=== PATIENT | female | born 1970 | race Caucasian/White ===

== ENCOUNTER → 2016-08-27 | Outpatient (CLI) | payer BC ==
[~2016-08-27] MED LIST: BCPILLS PO; CHOL1000 PO; CIPR-255 PO; KETO10TA PO; LEVO88TA PO; MULT1CAP3 PO; ONDA4TAB46 PO; OXYC-57 PO; PHEN-775 PO; PHEN-876 PO; SULF800T23 PO; TAMS0.4C38 PO
[2016-08-27 17:48] LABS: HEMATOCRIT 39.6 % (37-47); MEAN CELL VOLUME 88.4 fL (80-100); MEAN CORPUSCULAR HEMOGLOBIN 31.3 pg (25-34); MEAN CORPUSCULAR HGB CONC 35.4 g/dl (32-36); MEAN PLATELET VOLUME 9.5 fL (7.4-10.4); PLATELET COUNT 260 K/uL (130-400); RED BLOOD COUNT 4.48 M/uL (4.2-5.4); WHITE BLOOD COUNT 6.78 K/uL (4.8-10.8)
[2016-08-27 18:35] LABS: ALT/SGPT 29 U/L (12-78); AST/SGOT 20 U/L (15-37); BLOOD UREA NITROGEN 10 mg/dl (7-18); BUN/CREATININE RATIO 12.4 (10-20); CALCIUM 8.8 mg/dl (8.5-10.1); CARBON DIOXIDE 25 mmol/L (21-32); CHLORIDE 108 mmol/L (98-107); CREATININE 0.82 mg/dl (0.60-1.20); GLUCOSE 88 mg/dl (70-99); POTASSIUM 3.9 mmol/L (3.5-5.1); SODIUM 141 mmol/L (136-145)
[2016-08-27 18:45] LABS: ALB/GLOB RATIO 0.9 (0.9-2); ALKALINE PHOSPHATASE 56 U/L (45-117)
--- NOTE | 2016-09-02 07:12 | CODING QUERY MEDICAL NECESSITY ---
SUPPORTING DIAGNOSIS NEEDED Dr. Mckeon, A supporting diagnosis is required for the test/procedure performed on this patient in order for us to be reimbursed by the patient's insurance. Please provide a supporting diagnosis for the following test/procedure listed below next to the test name along with your signature. *If there is no additional diagnosis for this patient that would support the following test/procedure please document that below next to the test/procedure. Test(s)/Procedure(s) that require a supporting diagnosis: * ([id number]) VITAMIN D ASSAY DIAGNOSIS: DATE OF SERVICE: 08/27/16 Provider Signature: Date: Thank you Otilio Blair [facility] Information Management Once completed, please kindly fax back to [phone] For questions please call [phone]
== END | disposition home or self-care (01) ==
LOC: C.LABPVFM 14:09
PROVIDERS: ATTEND Family Medicine
DX: Z01.818 Encounter for other preprocedural examination (principal); E03.9 Hypothyroidism, unspecified; R53.83 Other fatigue; E55.9 Vitamin D deficiency, unspecified

== ENCOUNTER → 2016-12-06 | Outpatient (CLI) | payer BC | END | disposition home or self-care (01) | LOC: C.LABPVFM 11:58 | PROVIDERS: ATTEND Family Medicine | DX: R10.9 Unspecified abdominal pain (principal) ==

== ENCOUNTER → 2016-12-08 | Outpatient (CLI) | payer BC ==
[2016-12-08 19:01] LABS: URINE APPEARANCE TURBID (CLEAR); URINE BILIRUBIN NEG (NEG); URINE COLOR YELLOW; URINE NITRITE NEG (NEG); URINE SPECIFIC GRAVITY 1.029 (1.000-1.030); UROBILINOGEN NEG (NEG)
[2016-12-08 19:05] LABS: MANUAL MICROSCOPIC REQUIRED? NO; REVIEW REQ? NO
== END | disposition home or self-care (01) ==
LOC: C.LABSPEC 16:02
PROVIDERS: ATTEND Physician Assistant
DX: R10.2 Pelvic and perineal pain (principal)

== ENCOUNTER 2016-12-16 12:42 | Emergency (ER) | payer BC ==
[~2016-12-16] VITALS: Ht 165.1 cm; Wt 88.9 kg
[2016-12-16 12:55] VITALS: TEMP 36.7; Ht 165.1 cm; Wt 88.9 kg
[2016-12-16] MEDS ORDERED: SULF800T23 PO (13:16)
[2016-12-16] MEDS ORDERED: SODIUM CHLORIDE 0.9% 1000ML 500 ML IV ONE (13:19)
[2016-12-16 13:34] LABS: MANUAL MICROSCOPIC REQUIRED? NO; REVIEW REQ? NO; URINE APPEARANCE CLEAR (CLEAR); URINE BILIRUBIN NEG (NEG); URINE COLOR DK YELLOW; URINE EPITHELIAL CELL AUTO 20-30 /lpf (0-5); URINE NITRITE NEG (NEG); URINE PH 5.5 (4.5-7.5); URINE SPECIFIC GRAVITY 1.028 (1.000-1.030); UROBILINOGEN NEG (NEG); ZZUR CULT IF INDIC CLEAN CATCH NO
--- NOTE | 2016-12-16 13:54 | EMERGENCY ROOM VISIT NOTE ---
History First contact with patient: 13:30 Chief Complaint: URINARY SYMPTOMS Stated Complaint: BACK PAIN, BLADDER PRESSURE, PREVIOUS UTI SYMPTOMS Nursing Triage Summary: Pt reports urinary symptoms began 2 weeks ago, seen by PCP and put on antibiotic. Stopped after 4 days because urine was negative. Pt seen by gynecology with specific answers. Pt reports R back pain began this AM rated 9/10. No hx of kidney stones. History of Present Illness The patient is a 46 year old female who presents to the Emergency Room with complaints of suprapubic discomfort, urinary frequency, gross hematuria and right flank pain that has gotten progressively worse over the last 2 weeks. The patient initially saw her primary care physician 2 weeks ago. A urinalysis was performed. It showed blood. She was started on antibiotics for 4 days for a UTI. She says that she felt no better while on the antibiotics. Her primary care physician contacted her after 4 days and told her that her urine culture was negative, and to stop the antibiotics. The patient denies having any fever symptoms such as sweats, aches, headache or chills. This morning, she developed sudden right flank pain. She also had nausea. She did not have any vomiting. She did have one episode of diarrhea. She denies any blood in her stool. She denies any history of kidney stones. She took four ibuprofen for this morning with decent pain relief. Of note, the patient has already undergone a full gynecologic workup over the last 2 weeks with no acute findings. Review of Systems 10 system review performed and negative unless noted in HPI or below Past Medical/Surgical History Hypothyroidism Status post and shoulder surgery Family History Diabetes, heart disease, high blood pressure and cancer Social History Smoking Status: Former Smoker Alcohol Use: occasionally Housing Status: lives with family Occupation Status: employed Current/Historical Medications Scheduled Control Pills ( Control Pills), 1 TAB PO HS Cholecalciferol (Vitamin D3), 2 TAB PO DAILY Levothyroxine Sodium (Synthroid), 88 MCG PO DAILY Multiple Vitamins W/ Minerals (Womens Multi), 1 CAP PO DAILY Sulfa/Trimethoprim (Bactrim Ds 800MG/160MG), 1 TAB PO BID Tamsulosin Hcl (Flomax), 1 CAP PO DAILY Scheduled PRN Ondansetron Hcl (Zofran), 4 MG PO Q8H PRN for Nausea Oxycodone/Acetaminophen 5MG/325MG (Percocet 5MG/325MG), 1-2 TABS PO Q4H PRN for Pain Allergies Coded Allergies: Meclizine (Verified Allergy, Unknown, migraine, 12/16/16) Physical Exam Vital Signs Date Time Temp Pulse Resp B/P (MAP) Pulse Ox O2 Delivery O2 Flow Rate FiO2 12/16/16 17:16 84 16 130/87 99 Room Air 12/16/16 15:42 100 16 150/90 100 Room Air 12/16/16 14:15 91 18 144/100 99 Room Air 12/16/16 12:55 36.7 101 20 161/90 97 Room Air Physical Exam VITALS: Vitals are noted on the nurse's note and reviewed by myself. Vital signs stable. GENERAL: 46-year-old female, anxious in appearance. She also appears uncomfortable., SKIN: The skin was without rashes, erythema, edema, or bruising. HEAD: Normocephalic atraumatic. MOUTH: Mucous membranes moist. NECK: Supple without nuchal rigidity. No lymphadenopathy. Cervical spine is nontender. No JVD. HEART: Regular rate and rhythm without murmurs gallops or rubs. LUNGS: Clear to auscultation bilaterally without wheezes, rales or rhonchi. No accessory muscle use. ABDOMEN: Positive bowel sounds x 4.Soft, tenderness to palpation in the suprapubic region. Mild right CVA tenderness noted.,MUSCULOSKELETAL: No muscle atrophy, erythema, or edema noted. Full range of motion in all extremities.Strength 5/5 throughout. NEURO: Patient was alert and oriented to person place and time. Normal sensation to touch. No focal neurological deficits. Medical Decision & Procedures ER Provider Diagnostic Interpretation: Patient Name: NADIA LUNDY Unit Number: [id number] Dictated: 12/16/161443 Transcribed: 12/16/161443 EV Printed Date/Time: [~ rep prt dt]/[~ rep prt tm] [~ rep ct labl] - [~ rep ct ivnm] [facility] [place] [place] [address] Dictated: 12/16/161443 Transcribed: 12/16/161443 EV Printed Date/Time: [~ rep prt dt]/[~ rep prt tm] [~ rep ct labl] - [~ rep ct ivnm] Patient: NADIA LUNDY Address1: [address] [facility] Rec: [id number] Address2: [address] Acct ID: [id number] [facility] Zip: [place] [address] Date: 1970 Sex: F Room/Bed: Ref Phy: Diony Mckeon M.D. SC: ANA Att Phy: Report #: [id number] Lucila Phy: Diony Mckeon M.D. Test: APSTONE Admit Phy: Signal Repairer: NORMAN Interpreting Phy: Kris Sanabria M.D. Diagnosis: BACK PAIN, BLADDER PRESSURE , PREVIOUS UTI SYMPTOMS Ordering Phy: Nakia Contreras PA-C Service Date: 12/16/16 Admit Date: 12/16/16 MNE: [id number] CONF: DICTATED BY: Kris Sanabria M.D.]] CC: Nick Holland M.D. Urban, Angela P., PA-C Woolley, Paul O., M.D. Endcc: [~ rep ct add3]] CT SCAN OF THE ABDOMEN AND PELVIS WITHOUT IV CONTRAST CLINICAL HISTORY: Right flank pain. Hematuria. COMPARISON STUDY: No priors. TECHNIQUE: CT scan of the abdomen and pelvis is performed from the lung bases to the proximal femora. Images are reviewed in the axial, sagittal, and coronal planes. IV contrast was not administered for this examination. Automated dose control exposure was utilized. The examination is degraded by streak artifact from the patient's right arm which could not be elevated above the abdomen. CT DOSE: 1891.78 mGy.cm FINDINGS: Lung bases: The heart is normal in size and without pericardial effusion. A calcified granulomas noted in the right middle lobe. The lung bases are otherwise clear. Liver: The unenhanced liver is normal in size, contour, and attenuation. There is no intrahepatic biliary ductal dilatation. A 3.3 cm low-attenuation lesion is questioned in hepatic segment VII below the diaphragm on axial image #49. Gallbladder: Unremarkable. Spleen: Normal in size and attenuation. Pancreas: Unremarkable. Adrenal glands: Unremarkable. Kidneys: The unenhanced kidneys are normal in size. There is a 5 mm obstructing calculus versus 2 adjacent calculi in the distal right ureter seen on axial image #368 located approximately 1 cm above the vesicoureteral junction. This causes moderate right hydroureteronephrosis. No additional calculi are identified in either kidney and there is no left-sided hydronephrosis. There is no evidence of contour deforming renal mass lesion. Abdominal vasculature: The abdominal aorta is normal in course and caliber noting mild atherosclerotic calcification. Bowel: The small bowel and colon are normal in course and caliber. The appendix is well-visualized and normal. Peritoneum: There is no intraperitoneal free air or abdominal ascites. There is a small fat-containing umbilical hernia. Lymphadenopathy: Mildly enlarged retroperitoneal lymph nodes measure up to 11 mm in short axis. Pelvic viscera: The bladder, uterus, and adnexa are normal as visualized. Venous varicosities are suggested in the left upper thigh. Skeletal structures: No lytic or blastic lesions are seen. IMPRESSION: 1. There is a 5 mm obstructing calculus versus 2 adjacent calculi in the distal right ureter approximately 1 cm above the vesicoureteral junction. This causes moderate right hydroureteronephrosis. 2. No additional calculi are seen either kidney. 3. Question a 3.3 cm low-attenuation lesion in hepatic segment VII below the diaphragm. This could represent artifact versus geographic steatosis or a true hepatic lesion. Follow-up with a nonemergent liver protocol MRI is recommended for further assessment. 4. Mildly enlarged retroperitoneal lymph nodes are of indeterminant significance. 5. Additional findings as above. Electronically signed by: Kris Sanabria M.D. 12/16/2016 2:52 PM Dictated Date/Time: 12/16/2016 2:44 PM The status of this report is Signed. Draft = Not yet reviewed or approved by Radiologist. Signed = Reviewed and approved by Radiologist. <AttendingPhy></AttendingPhy> <FamilyPhy>Diony Mckeon M.D.</FamilyPhy> < PrimaryPhy>Diony Mckeon M.D.</PrimaryPhy> <UnitNumber>[id number]</UnitNumber > <VisitNumber>[id number]</VisitNumber> <PatientName>NADIA LUNDY</ PatientName> <DateOfBirth>1970</DateOfBirth> <Location>[facility]</Location> < ServiceDate>12/16/16</ServiceDate> <MNE>ESINDI</MNE> <OrderingPhy>Urban, Nakia Montoya PA-C</OrderingPhy> <OrderingPhyMNE>f rep ord dr ruby</OrderingPhyMNE> < DictatingPhyMNE>f rep dict dr ruby</DictatingPhyMNE> <CCListMNE>f rep ct mne</ CCListMNE> <AdmittingPhyMNE>f pt admit dr ruby</AdmittingPhyMNE> <AttendingPhyMNE >f pt attend dr ruby</AttendingPhyMNE> <ConsultingPhyMNE>f pt consult dr ruby</ConsultingPhyMNE> <FamilyPhyMNE>f pt fam dr ruby</FamilyPhyMNE> <OtherPhyMNE>f pt other dr ruby</OtherPhyMNE> < PrimaryPhyMNE>f pt prim care dr ruby</PrimaryPhyMNE> <ReferringPhyMNE>f pt referring dr ruby</ReferringPhyMNE> Laboratory Results 12/16/16 13:30 Red Blood Count 4.62, Mean Corpuscular Volume 88.3, Mean Corpuscular Hemoglobin 30.5, Mean Corpuscular Hemoglobin Concent 34.6, Mean Platelet Volume 9.1, Neutrophils (%) (Auto) 72.1, Lymphocytes (%) (Auto) 18.3, Monocytes (%) (Auto) 7.4, Eosinophils (%) (Auto) 1.8, Basophils (%) (Auto) 0.3, Neutrophils # (Auto) 5.19, Lymphocytes # (Auto) 1.32, Monocytes # (Auto) 0.53, Eosinophils # (Auto) 0.13, Basophils # (Auto) 0.02 12/16/16 13:30 Test 12/16/16 12:10 12/16/16 13:30 Urine Color DK YELLOW Urine Appearance CLEAR (CLEAR) Urine pH 5.5 (4.5-7.5) Urine Specific [place] 1.028 (1.000-1.030) Urine Protein NEG (NEG) Urine Glucose (UA) NEG (NEG) Urine Ketones TRACE (NEG) Urine Occult Blood 2+ (NEG) Urine Nitrite NEG (NEG) Urine Bilirubin NEG (NEG) Urine Urobilinogen NEG (NEG) Urine Leukocyte Esterase NEG (NEG) Urine WBC (Auto) 1-5 /hpf (0-5) Urine RBC (Auto) 10-30 /hpf (0-4) Urine Hyaline Casts (Auto) 5-10 /lpf (0-5) Urine Epithelial Cells (Auto) 20-30 /lpf (0-5) Urine Bacteria (Auto) NEG (NEG) Urine Test NEG (NEG) White Blood Count 7.20 K/uL (4.8-10.8) Red Blood Count 4.62 M/uL (4.2-5.4) Hemoglobin 14.1 g/dL (12.0-16.0) Hematocrit 40.8 % (37-47) Mean Corpuscular Volume 88.3 fL (80-100) Mean Corpuscular Hemoglobin 30.5 pg (25-34) Mean Corpuscular Hemoglobin Concent 34.6 g/dl (32-36) Platelet Count 273 K/uL (130-400) Mean Platelet Volume 9.1 fL (7.4-10.4) Neutrophils (%) (Auto) 72.1 % Lymphocytes (%) (Auto) 18.3 % Monocytes (%) (Auto) 7.4 % Eosinophils (%) (Auto) 1.8 % Basophils (%) (Auto) 0.3 % Neutrophils # (Auto) 5.19 K/uL (1.4-6.5) Lymphocytes # (Auto) 1.32 K/uL (1.2-3.4) Monocytes # (Auto) 0.53 K/uL (0.11-0.59) Eosinophils # (Auto) 0.13 K/uL (0-0.5) Basophils # (Auto) 0.02 K/uL (0-0.2) RDW Standard Deviation 39.2 fL (36.4-46.3) RDW Coefficient of Variation 12.2 % (11.5-14.5) Immature Granulocyte % (Auto) 0.1 % Immature Granulocyte # (Auto) 0.01 K/uL (0.00-0.02) Anion Gap 8.0 mmol/L (3-11) Est Creatinine Clear Calc Drug Dose 77.4 ml/min Estimated GFR () 78.2 Estimated GFR (Non- 67.5 BUN/Creatinine Ratio 12.3 (10-20) Calcium Level 8.8 mg/dl (8.5-10.1) Medications Administered Medications (Trade) Dose Ordered Sig/Elly Route Start Time Stop Time Status Last Admin Dose Admin Sodium Chloride 500 ml @ 999 mls/hr Q31M ONCE IV 12/16/16 13:19 12/16/16 13:49 DC 12/16/16 13:36 999 MLS/HR Sodium Chloride 1,000 ml @ 999 mls/hr Q1H1M ONCE IV 12/16/16 14:00 12/16/16 15:00 DC 12/16/16 14:15 999 MLS/HR Sodium Chloride 500 ml @ 999 mls/hr Q31M STAT IV 12/16/16 15:35 12/16/16 16:05 DC 12/16/16 15:41 999 MLS/HR Tamsulosin HCl (Flomax Cap) 0.4 mg NOW ONCE PO 12/16/16 15:45 12/16/16 15:46 DC 12/16/16 15:41 0.4 MG Ketorolac Tromethamine (Toradol Inj) 30 mg NOW STAT IV 12/16/16 15:35 12/16/16 15:36 DC 12/16/16 15:41 30 MG Oxycodone/ Acetaminophen (Percocet 5/ 325MG Home Pack) 1 homepack UD ONCE PO 12/16/16 16:45 12/16/16 16:46 DC 12/16/16 16:59 1 HOMEPACK Ondansetron HCl (ZOFRAN ODT 4MG Home Pack) 1 homepack UD ONCE PO 12/16/16 16:45 12/16/16 16:46 DC 12/16/16 16:59 1 HOMEPACK Phenazopyridine HCl (Phenazopyridine HCl 200MG Home Pack) 1 homepack UD ONCE PO 12/16/16 16:45 12/16/16 16:46 DC 12/16/16 16:59 1 HOMEPACK Phenazopyridine HCl (Pyridium Tab) 200 mg NOW STAT PO 12/16/16 16:32 12/16/16 16:33 DC 12/16/16 16:59 200 MG Morphine Sulfate (MoRPHine SULFATE INJ) 4 mg ONE STAT IV 12/16/16 16:48 7/4/17 16:50 DC 12/16/16 17:00 4 MG Ondansetron HCl (Zofran Inj) 4 mg NOW STAT IV 12/16/16 16:48 12/16/16 16:50 DC 12/16/16 17:00 4 MG ED Course Patient was seen and examined Labs were obtained, and a saline lock was established She was hydrated with 1 L of normal saline The patient declined any pain medication. A urinalysis was performed. She was taken for CT of the abdomen and pelvis Upon reassessment, the patient was complaining of the pain returning. She was given 1 dose of Toradol 30 mg IV. The patient was also given peridium 200 mg and Flomax 4 mg She was again reassessed. She was requesting something more for pain. She was given morphine 4 mg IV and Zofran 4 mg IV Upon reassessment, she was more comfortable. She was comfortable being discharged home. I reviewed discharge instructions the patient. They voiced understanding and had no further questions. Medical Decision DIFFERENTIAL DIAGNOSIS: Kidney stone, ureteral stone, pyelonephritis, UTI, aseptic cystitis, renal abscess, musculoskeletal back pain This patient is an 46-year-old female that presents to the emergency department with urinary symptoms and gross hematuria. On exam, she had some tenderness in the suprapubic region in addition to some right CVA tenderness. Urine was consistent with blood only. It does not appear infected. She is afebrile. There is no leukocytosis. I do not suspect an infection. A CT scan did reveal a 5 mm stone in the distal right ureter. I was able to get the patient comfortable with pain medication and nausea medication. She was adequately hydrated. She was discharged home with antiemetics, a short course of narcotics , Pyridium and Flomax. She will follow up with urology. She agrees to return with any new or worsening symptoms. Impression Primary Impression: Ureteral stone Departure Information Prescriptions Tamsulosin Hcl (FLOMAX) 0.4 Mg Cap 1 CAP PO DAILY for 15 Days, #15 CAP 5 Refills Prov: Nakia Contreras PA-C 12/16/16 Ondansetron Hcl (ZOFRAN) 4 Mg Tab 4 MG PO Q8H Y for Nausea, #20 TAB Prov: Nakia Contreras PA-C 12/16/16 Oxycodone/Acetaminophen 5MG/325MG (PERCOCET 5MG/325MG) Tab 1-2 TABS PO Q4H Y for Pain, #15 TAB Prov: Nakia Contreras PA-C 12/16/16 Referrals Diony Mckeon M.D. (PCP) Patient Instructions [facility]
[2016-12-16] MEDS ORDERED: SODIUM CHLORIDE 0.9% 1000ML 1,000 ML IV ONE (14:00)
[2016-12-16 14:17] LABS: BASO % 0.3 %; BASO ABS # 0.02 K/uL (0-0.2); COMPLETE YES; EOS % 1.8 %; HEMATOCRIT 40.8 % (37-47); IG% 0.1 %; LYMPH % 18.3 %; LYMPH ABS # 1.32 K/uL (1.2-3.4); MEAN CELL VOLUME 88.3 fL (80-100); MEAN CORPUSCULAR HEMOGLOBIN 30.5 pg (25-34); MEAN CORPUSCULAR HGB CONC 34.6 g/dl (32-36); MEAN PLATELET VOLUME 9.1 fL (7.4-10.4); MONO % 7.4 %; NEUT % 72.1 %; PLATELET COUNT 273 K/uL (130-400); RED BLOOD COUNT 4.62 M/uL (4.2-5.4)
[2016-12-16 14:25] LABS: BUN/CREATININE RATIO 12.3 (10-20); CALCIUM 8.8 mg/dl (8.5-10.1); POTASSIUM 3.7 mmol/L (3.5-5.1)
--- NOTE | 2016-12-16 14:54 | DIAGNOSTIC IMAGING REPORT ---
CT SCAN OF THE ABDOMEN AND PELVIS WITHOUT IV CONTRAST CLINICAL HISTORY: Right flank pain. Hematuria. COMPARISON STUDY: No priors. TECHNIQUE: CT scan of the abdomen and pelvis is performed from the lung bases to the proximal femora. Images are reviewed in the axial, sagittal, and coronal planes. IV contrast was not administered for this examination. Automated dose control exposure was utilized. The examination is degraded by streak artifact from the patient's right arm which could not be elevated above the abdomen. CT DOSE: 1891.78 mGy.cm FINDINGS: Lung bases: The heart is normal in size and without pericardial effusion. A calcified granulomas noted in the right middle lobe. The lung bases are otherwise clear. Liver: The unenhanced liver is normal in size, contour, and attenuation. There is no intrahepatic biliary ductal dilatation. A 3.3 cm low-attenuation lesion is questioned in hepatic segment VII below the diaphragm on axial image #49. Gallbladder: Unremarkable. Spleen: Normal in size and attenuation. Pancreas: Unremarkable. Adrenal glands: Unremarkable. Kidneys: The unenhanced kidneys are normal in size. There is a 5 mm obstructing calculus versus 2 adjacent calculi in the distal right ureter seen on axial image #368 located approximately 1 cm above the vesicoureteral junction. This causes moderate right hydroureteronephrosis. No additional calculi are identified in either kidney and there is no left-sided hydronephrosis. There is no evidence of contour deforming renal mass lesion. Abdominal vasculature: The abdominal aorta is normal in course and caliber noting mild atherosclerotic calcification. Bowel: The small bowel and colon are normal in course and caliber. The appendix is well-visualized and normal. Peritoneum: There is no intraperitoneal free air or abdominal ascites. There is a small fat-containing umbilical hernia. Lymphadenopathy: Mildly enlarged retroperitoneal lymph nodes measure up to 11 mm in short axis. Pelvic viscera: The bladder, uterus, and adnexa are normal as visualized. Venous varicosities are suggested in the left upper thigh. Skeletal structures: No lytic or blastic lesions are seen. IMPRESSION: 1. There is a 5 mm obstructing calculus versus 2 adjacent calculi in the distal right ureter approximately 1 cm above the vesicoureteral junction. This causes moderate right hydroureteronephrosis. 2. No additional calculi are seen either kidney. 3. Question a 3.3 cm low-attenuation lesion in hepatic segment VII below the diaphragm. This could represent artifact versus geographic steatosis or a true hepatic lesion. Follow-up with a nonemergent liver protocol MRI is recommended for further assessment. 4. Mildly enlarged retroperitoneal lymph nodes are of indeterminant significance. 5. Additional findings as above. Electronically signed by: Kris Sanabria M.D. 12/16/2016 2:52 PM Dictated Date/Time: 12/16/2016 2:44 PM
[2016-12-16] MEDS ORDERED: SODIUM CHLORIDE 0.9% 500ML 500 ML IV STA (15:35)
[2016-12-16] MEDS ORDERED: KETOROLAC TROMETHAMINE 30 MG/ML VIAL IV STA (15:35)
[2016-12-16] MEDS ORDERED: TAMS0.4C38 PO (15:43)
[2016-12-16] MEDS ORDERED: OXYC-57 PO (15:43)
[2016-12-16] MEDS ORDERED: ONDA4TAB46 PO (15:43)
[2016-12-16] MEDS ORDERED: TAMSULOSIN HCL 0.4 MG CAP PO ONE (15:45)
[2016-12-16] MEDS ORDERED: PHENAZOPYRIDINE HCL 200 MG TAB PO STA (16:32)
[2016-12-16] MEDS ORDERED: PHENAZOPYRIDINE HOME PACK 200 MG VIAL PO ONE (16:45)
[2016-12-16] MEDS ORDERED: PERCOCET HOME PACK PO ONE (16:45)
[2016-12-16] MEDS ORDERED: ONDANSETRON HOME PACK 4MG OD TAB PO ONE (16:45)
[2016-12-16] MEDS ORDERED: ONDANSETRON INJ 2 MG/ML 2 ML VIAL IV STA (16:48)
[2016-12-16] MEDS ORDERED: MoRPHine SULFATE 4 MG/ML 1 ML CARP\\VIAL IV STA (16:48)
[2016-12-16 17:16] VITALS: BP 130/87; PULSE 84; O2SAT 99
[2016-12-19] MEDS ORDERED: PHEN-876 PO (11:28)
[2016-12-19] MEDS ORDERED: OXYC-57 PO (11:28)
[2016-12-19] MEDS ORDERED: TAMS0.4C38 PO (11:28)
[2017-01-06] MEDS ORDERED: TAMS0.4C38 PO (15:13)
[2017-01-30] MEDS ORDERED: PHEN-775 PO (11:07)
[2017-01-30] MEDS ORDERED: CIPR-255 PO (11:07)
[2017-01-30] MEDS ORDERED: OXYC-57 PO (11:07)
[2017-02-03] MEDS ORDERED: CHOL1000 PO (13:16)
[2017-02-03] MEDS ORDERED: LEVO88TA PO (13:16)
[2017-02-03] MEDS ORDERED: BCPILLS PO (13:16)
[2017-02-03] MEDS ORDERED: MULT1CAP3 PO (13:16)
== END 2016-12-16 17:46 | disposition home or self-care (01) ==
LOC: C.EDB 12:44 → C.EDC 17:46
DX: N20.1 Calculus of ureter (principal); E03.9 Hypothyroidism, unspecified; Z87.891 Personal history of nicotine dependence; Z98.891 History of uterine scar from previous surgery; Z98.890 Other specified postprocedural states; Z83.3 Family history of diabetes mellitus; Z79.899 Other long term (current) drug therapy

== ENCOUNTER 2016-12-18 04:16 | Inpatient (IN) | payer BC ==
[~2016-12-18] VITALS: Ht 167.6 cm; Wt 91.2 kg
[~2016-12-18 04:16] MED LIST changes: -BCPILLS PO; -CHOL1000 PO; -CIPR-255 PO; -KETO10TA PO; -LEVO88TA PO; -MULT1CAP3 PO; -PHEN-775 PO; -PHEN-876 PO
[2016-12-18] MEDS ORDERED: KETOROLAC TROMETHAMINE 30 MG/ML VIAL IV STA (04:37)
[2016-12-18] MEDS ORDERED: MoRPHine SULFATE 10 MG/ML CARP/VIAL IV STA (04:37)
[2016-12-18] MEDS ORDERED: ONDANSETRON INJ 2 MG/ML 2 ML VIAL IV STA (04:37)
--- NOTE | 2016-12-18 04:41 | EMERGENCY ROOM VISIT NOTE ---
History Report prepared by Karla: Hector Martinez Under the Supervision of: Dr. Syeda Lacey D.O. First contact with patient: 04:22 Chief Complaint: KIDNEY STONE Stated Complaint: KIDNEY STONE History of Present Illness The patient is a 46 year old female who presents to the Emergency Room with complaints of worsening pain in her lower back and bladder that began this morning at 0030, 4 hours prior to arrival. The patient was in the Emergency Department on December 16, two days prior to this visit and was diagnosed with a 5 mm stone that was descending into the bladder. She states that her pain began at 0030 with pressure in her bladder, which gradually worsened to severe pain in her back. Her pain is worse today as compared to her first visit on the . She took two oxycodone tablets this morning without relief. She is also experiencing nausea at this time. The patient notes a history of hematuria and intermittent episodes of pain over the past 2 weeks prior to the diagnosis. 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 A total of 10 systems reviewed and were otherwise negative. Past Medical & Surgical Medical Problems: (1) Bronchitis (2) Pneumonia Surgical Problems: (1) History of thyroidectomy Family History Cancer Diabetes mellitus Heart disease Hypertension Kidney disease Kidney stones Social History Smoking Status: Former Smoker Alcohol Use: occasionally Housing Status: lives with family Occupation Status: employed Current/Historical Medications Scheduled Control Pills ( Control Pills), 1 TAB PO HS Cholecalciferol (Vitamin D3), 2 TAB PO DAILY Levothyroxine Sodium (Synthroid), 88 MCG PO DAILY Multiple Vitamins W/ Minerals (Womens Multi), 1 CAP PO DAILY Sulfa/Trimethoprim (Bactrim Ds 800MG/160MG), 1 TAB PO BID Tamsulosin Hcl (Flomax), 0.4 MG PO DAILY Scheduled PRN Ondansetron Hcl (Zofran), 4 MG PO Q8 PRN for Nausea Oxycodone/Acetaminophen 5MG/325MG (Percocet 5MG/325MG), 1-2 TABLETS PO Q4H PRN for Pain Phenazopyridine HCl (Pyridium), 200 MG PO TID PRN for Bladder pain Allergies Coded Allergies: Meclizine (Verified Allergy, Unknown, migraine, 12/18/16) Physical Exam Vital Signs Date Time Temp Pulse Resp B/P (MAP) Pulse Ox O2 Delivery O2 Flow Rate FiO2 12/18/16 07:48 82 18 126/88 97 Room Air 12/18/16 06:17 75 16 122/73 97 Room Air 12/18/16 04:20 36.6 84 16 153/87 97 Room Air Physical Exam General: Appears extremely uncomfortable on exam. HEENT: Head - normocephalic and atraumatic Pupils are equal, round, and reactive to light. Extraocular eye muscles are intact, and sclera are anicteric. Nose - moist nasal mucosa without discharge. Mouth - moist buccal mucosa. Oropharynx is nonerythematous and there is no tonsillar exudate or edema noted. Neck: Supple; no JVD, nuchal rigidity, cervical lymphadenopathy. Heart: Regular rate and rhythm. There is a normal S1 and S2 with no murmurs, clicks, or gallops appreciated. Back: Right CVA tenderness on exam. Lungs: Clear to auscultation bilaterally with no wheezes, rales, or rhonchi. Abdomen: Soft, completely nontender, nondistended, with good bowel sounds. There are no palpable pulsatile masses or hepatosplenomegaly. There is no guarding, rigidity, or rebound noted. Extremities: No evidence of cyanosis, clubbing, or edema. There are easily palpable peripheral pulses. Skin: warm and pale and diaphoretic with good turgor and no rashes. Medical Decision & Procedures ER Provider Diagnostic Interpretation: Radiology results as stated below per my review and the radiologist's interpretation: KUB X-RAY: KUB X-ray reveals no obvious ureteral stone. ULTRASOUND KIDNEYS AND BLADDER CLINICAL HISTORY: Right ureteral stone. COMPARISON STUDY: Abdominal CT dated 12/16/2016. TECHNIQUE: Real-time, grayscale, and color flow sonography of the kidneys and bladder is performed. Images are reviewed in the transverse and longitudinal planes. FINDINGS: Kidneys: The kidneys demonstrate mild cortical atrophy. The right kidney measures 11.4 cm in length and the left kidney measures 11.5 cm in length. There is moderate right hydroureteronephrosis. An echogenic obstructing calculus is seen in the distal right ureter above the vesicoureteral junction. This measures at least 5 mm in length. No left-sided hydronephrosis is seen. No shadowing renal calculi are identified. There is no sonographic evidence of contour deforming renal mass lesion. No perinephric fluid is identified. Bladder: The bladder is normal in appearance. The left ureteral jet was much normal in the right. IMPRESSION: 1. There is an obstructing calculus in the distal right ureter measuring at least 5 mm. This causes moderate right hydroureteronephrosis. 2. There is no left-sided hydronephrosis. 3. The bladder was normal as visualized. The left ureteral jet was much stronger than the right. Electronically signed by: Kris Sanabria M.D. 12/18/2016 7:37 AM Dictated Date/Time: 12/18/2016 7:34 AM Laboratory Results 12/18/16 04:50 Red Blood Count 4.03, Mean Corpuscular Volume 89.8, Mean Corpuscular Hemoglobin 31.8, Mean Corpuscular Hemoglobin Concent 35.4, Mean Platelet Volume 8.8, Neutrophils (%) (Auto) 66.5, Lymphocytes (%) (Auto) 23.6, Monocytes (%) (Auto) 7.1, Eosinophils (%) (Auto) 2.2, Basophils (%) (Auto) 0.2, Neutrophils # (Auto) 5.32, Lymphocytes # (Auto) 1.89, Monocytes # (Auto) 0.57, Eosinophils # (Auto) 0.18, Basophils # (Auto) 0.02 12/18/16 04:50 Test 12/18/16 04:50 White Blood Count 8.01 K/uL (4.8-10.8) Red Blood Count 4.03 M/uL (4.2-5.4) Hemoglobin 12.8 g/dL (12.0-16.0) Hematocrit 36.2 % (37-47) Mean Corpuscular Volume 89.8 fL (80-100) Mean Corpuscular Hemoglobin 31.8 pg (25-34) Mean Corpuscular Hemoglobin Concent 35.4 g/dl (32-36) Platelet Count 222 K/uL (130-400) Mean Platelet Volume 8.8 fL (7.4-10.4) Neutrophils (%) (Auto) 66.5 % Lymphocytes (%) (Auto) 23.6 % Monocytes (%) (Auto) 7.1 % Eosinophils (%) (Auto) 2.2 % Basophils (%) (Auto) 0.2 % Neutrophils # (Auto) 5.32 K/uL (1.4-6.5) Lymphocytes # (Auto) 1.89 K/uL (1.2-3.4) Monocytes # (Auto) 0.57 K/uL (0.11-0.59) Eosinophils # (Auto) 0.18 K/uL (0-0.5) Basophils # (Auto) 0.02 K/uL (0-0.2) RDW Standard Deviation 40.6 fL (36.4-46.3) RDW Coefficient of Variation 12.3 % (11.5-14.5) Immature Granulocyte % (Auto) 0.4 % Immature Granulocyte # (Auto) 0.03 K/uL (0.00-0.02) Anion Gap 9.0 mmol/L (3-11) Est Creatinine Clear Calc Drug Dose 84.1 ml/min Estimated GFR () 83.3 Estimated GFR (Non- 71.8 BUN/Creatinine Ratio 14.4 (10-20) Calcium Level 8.7 mg/dl (8.5-10.1) Laboratory results per my review. Medications Administered Medications (Trade) Dose Ordered Sig/Elly Route Start Time Stop Time Status Last Admin Dose Admin Ketorolac Tromethamine (Toradol Inj) 30 mg NOW STAT IV 12/18/16 04:37 12/18/16 04:39 DC 12/18/16 04:53 30 MG Morphine Sulfate (MoRPHine SULFATE INJ) 6 mg NOW STAT IV 12/18/16 04:37 12/18/16 04:39 DC 12/18/16 04:53 6 MG Ondansetron HCl (Zofran Inj) 4 mg NOW STAT IV 12/18/16 04:37 12/18/16 04:39 DC 12/18/16 04:52 4 MG Sodium Chloride 1,000 ml @ 999 mls/hr Q1H1M STAT IV 12/18/16 05:11 12/18/16 06:11 DC 12/18/16 05:11 999 MLS/HR Procedure Medications Ordered: Sodium Chloride, Toradol, Morphine Sulfate, Zofran. ED Course 0430: Past medical records reviewed. The patient was evaluated in room A4. A complete history and physical exam was performed. An IV lock was initiated and labs were drawn as above. 0437: Ordered Zofran 4 mg IV, Morphine Sulfate 6 mg IV, Toradol 30 mg IV. The patient had a KUB as described above. 0511: Ordered Sodium Chloride 1000 mL @ 999 mL/hr IV. 0605: I reevaluated the patient at this time. she is much more comfortable, I reviewed the x-ray results with her. She will go for ultrasound 0800: I discussed the case with urology and the hospitalist service. Medical Decision Blood Pressure Screening: Patient was found to have a slightly elevated blood pressure due to circumstances. I do not believe that the patient requires hypertension monitoring. I attest that I have personally reviewed the patient's current medication list. The patient is a 46 year old female who presents to the Emergency Department for back and flank pain. Differential diagnosis includes; Ureteral colic, obstructive uropathy, infected kidney stone, UTI. Laboratory Results were reviewed and show: Normal white count, normal H and H, BUN of 14, Creatinine of 0.9, Glucose of 120. This patient has a 5 mm right ureteral stone at the UVJ. She has failed outpatient management. She continues to have discomfort and nausea. Ultrasound confirms that the stone remains in the same position. I discussed the case with urology and the hospitalist and they will care for the patient. Consults Time Called: [phone] Consulting Physician: TYSON Keith - Urology Returned Call: [phone] Ailda suggested that I speak with the hospitalist for admission. I discussed the case with Dr. Rivas. She has agreed to evaluate the patient. Impression Primary Impression: Ureteral calculus, right Scribe Attestation The scribe's documentation has been prepared under my direction and personally reviewed by me in its entirety. I confirm that the note above accurately reflects all work, treatment, procedures, and medical decision making performed by me. Departure Information Dispostion Being Evaluated By Hospitalist Referrals Diony Mckeon M.D. (PCP) Patient Instructions My [facility]
[2016-12-18] MEDS ORDERED: OXYC-57 PO (04:51)
[2016-12-18] MEDS ORDERED: PHEN-876 PO (04:51)
[2016-12-18] MEDS ORDERED: TAMS0.4C38 PO (04:51)
[2016-12-18] MEDS ORDERED: ONDA4TAB46 PO (04:51)
[2016-12-18] MEDS ORDERED: SODIUM CHLORIDE 0.9% 1000ML 1,000 ML IV STA (05:11)
[2016-12-18 05:16] LABS: BASO % 0.2 %; BASO ABS # 0.02 K/uL (0-0.2); COMPLETE YES; EOS % 2.2 %; HEMATOCRIT 36.2 % (37-47); IG% 0.4 %; LYMPH % 23.6 %; LYMPH ABS # 1.89 K/uL (1.2-3.4); MEAN CELL VOLUME 89.8 fL (80-100); MEAN CORPUSCULAR HEMOGLOBIN 31.8 pg (25-34); MEAN CORPUSCULAR HGB CONC 35.4 g/dl (32-36); MEAN PLATELET VOLUME 8.8 fL (7.4-10.4); MONO % 7.1 %; NEUT % 66.5 %; PLATELET COUNT 222 K/uL (130-400); RED BLOOD COUNT 4.03 M/uL (4.2-5.4); WHITE BLOOD COUNT 8.01 K/uL (4.8-10.8)
[2016-12-18 05:36] LABS: BUN/CREATININE RATIO 14.4 (10-20); CALCIUM 8.7 mg/dl (8.5-10.1); CREATININE 0.95 mg/dl (0.60-1.20); POTASSIUM 3.5 mmol/L (3.5-5.1)
--- NOTE | 2016-12-18 07:30 | DIAGNOSTIC IMAGING REPORT ---
KUB HISTORY: 46-year-old female presents with acute right-sided flank pain with history of kidney stones. COMPARISON: CT abdomen and pelvis 12/16/2016. TECHNIQUE: KUB radiograph. FINDINGS: The previously described 3 mm calculus of the distal right ureter seen on study dated 12/16/2016 is not definitively identified on today's exam. There are however multiple centrally lucent phleboliths within the right hemipelvis again identified. No uroliths are definitively identified. The bones appear intact. Bowel gas pattern is nonobstructive. IMPRESSION: Previously described 3 mm calculus of the distal right ureter is not definitively seen on today's study. Multiple centrally lucent phleboliths of the pelvis are redemonstrated. Electronically signed by: Christiano Adams 12/18/2016 7:28 AM Dictated Date/Time: 12/18/2016 7:22 AM
--- NOTE | 2016-12-18 07:39 | DIAGNOSTIC IMAGING REPORT ---
ULTRASOUND KIDNEYS AND BLADDER CLINICAL HISTORY: Right ureteral stone. COMPARISON STUDY: Abdominal CT dated 12/16/2016. TECHNIQUE: Real-time, grayscale, and color flow sonography of the kidneys and bladder is performed. Images are reviewed in the transverse and longitudinal planes. FINDINGS: Kidneys: The kidneys demonstrate mild cortical atrophy. The right kidney measures 11.4 cm in length and the left kidney measures 11.5 cm in length. There is moderate right hydroureteronephrosis. An echogenic obstructing calculus is seen in the distal right ureter above the vesicoureteral junction. This measures at least 5 mm in length. No left-sided hydronephrosis is seen. No shadowing renal calculi are identified. There is no sonographic evidence of contour deforming renal mass lesion. No perinephric fluid is identified. Bladder: The bladder is normal in appearance. The left ureteral jet was much normal in the right. IMPRESSION: 1. There is an obstructing calculus in the distal right ureter measuring at least 5 mm. This causes moderate right hydroureteronephrosis. 2. There is no left-sided hydronephrosis. 3. The bladder was normal as visualized. The left ureteral jet was much stronger than the right. Electronically signed by: Kris Sanabria M.D. 12/18/2016 7:37 AM Dictated Date/Time: 12/18/2016 7:34 AM
[2016-12-18 08:07] VITALS: O2SAT 97; Ht 167.6 cm; Wt 91.2 kg
[2016-12-18] MEDS ORDERED: ACETAMINOPHEN 325 MG TAB PO PRN (08:30)
[2016-12-18] MEDS ORDERED: ONDANSETRON INJ 2 MG/ML 2 ML VIAL IV PRN (08:30)
[2016-12-18] MEDS ORDERED: MAGNESIUM HYDROXIDE SUSP 30 ML UDC PO PRN (08:30)
[2016-12-18] MEDS ORDERED: OXYCODONE/ACETAMINOPHEN 5-325 TAB PO PRN (08:30)
[2016-12-18] MEDS ORDERED: MoRPHine SULFATE 2 MG/ML CARP IV PRN (08:30)
[2016-12-18] MEDS ORDERED: POLYETHYLENE (MIRALAX) 17 GM PACK PO PRN (08:30)
[2016-12-18] MEDS ORDERED: ALUMINUM/MAGNESIUM/SIMETH (MAALOX MAX) 30 ML UDC PO PRN (08:30)
[2016-12-18] MEDS ORDERED: KETOROLAC TROMETHAMINE 30 MG/ML VIAL IV PRN (08:30)
--- NOTE | 2016-12-18 08:37 | History and Physical ---
History & Physical Date & Time of Service: Dec 18, 2016 at 08:24 Chief Complaint: Kidney Stone Primary Care Physician: Diony Mckeon M.D. History of Present Illness Source: patient, family (- at bedside ), clinic records, hospital records Patient is a pleasant 46 y/o female, with PMHx of hypothyroidism, who presented to the ED because of worsening right flank pain. Patient was seen at [facility] ED on December 16 due to hematuria and right flank pain. She was diagnosed w/ a 5mm right kidney stone and discharged home w/ pain medications and Flomax. She returned today due to worsening pain that started early this AM. Currently, her pain is well controlled- she was given IV 6 mg Morphine and IV 30 mg Toradol by ED. She denies h/o kidney stones in the past. According to the patient, she was seen by her PCP a few weeks back because of hematuria. She was thought to have a UTI and placed on Bactrim and Pyridium- UCx results came back negative and patient was referred to [employer]. Her gynecological workup was negative. She was then scheduled for a urology appointment w/ Alida Adams for mid December. + hematuria. +suprapubic pain. +urinary frequency. Patient denies any fever, chills, sweats, lightheadedness, dizziness, vision changes, CP, palpitations, edema, SOB, wheezing, cough, abdominal pain, nausea, vomiting, diarrhea, melena , numbness/tingling, weakness, muscle/joint pain, anxiety/depression, active bleeding, or new skin discoloration/changes. Past Medical/Surgical History Medical Problems: 1. Hypothyroidism Surgical Problems: 1. Partial thyroidectomy 2. D&C 3. x2 4. Rotator cuff surgery Family History Cancer Diabetes mellitus Heart disease Hypertension Kidney disease Kidney stones Social History Smoking Status: Former Smoker Alcohol Use: none Housing status: lives with family Occupational Status: employed Multi-Drug Resistant Organisms History of MDRO: No Allergies Coded Allergies: Meclizine (Verified Allergy, Unknown, migraine, 12/18/16) Home Medications Scheduled Control Pills ( Control Pills), 1 TAB PO HS Cholecalciferol (Vitamin D3), 2 TAB PO DAILY Levothyroxine Sodium (Synthroid), 88 MCG PO DAILY Multiple Vitamins W/ Minerals (Womens Multi), 1 CAP PO DAILY Sulfa/Trimethoprim (Bactrim Ds 800MG/160MG), 1 TAB PO BID Tamsulosin Hcl (Flomax), 0.4 MG PO DAILY Scheduled PRN Ondansetron Hcl (Zofran), 4 MG PO Q8 PRN for Nausea Oxycodone/Acetaminophen 5MG/325MG (Percocet 5MG/325MG), 1-2 TABLETS PO Q4H PRN for Pain Phenazopyridine HCl (Pyridium), 200 MG PO TID PRN for Bladder pain Physical Exam Vital Signs Date Time Temp Pulse Resp B/P (MAP) Pulse Ox O2 Delivery O2 Flow Rate FiO2 12/18/16 07:48 82 18 126/88 97 Room Air 12/18/16 06:17 75 16 122/73 97 Room Air 12/18/16 04:20 36.6 84 16 153/87 97 Room Air General Appearance: WD/WN, no apparent distress Head: normocephalic, atraumatic Eyes: normal inspection, PERRL ENT: hearing grossly normal Neck: supple Respiratory/Chest: lungs clear, no respiratory distress, no accessory muscle use Cardiovascular: regular rate, rhythm Abdomen/GI: normal bowel sounds, non tender, soft Back: normal inspection, no CVA tenderness Extremities/Musculoskelatal: no calf tenderness, no pedal edema Neurologic/Psych: alert, normal mood/affect, oriented x 3 Skin: normal color, warm/dry, no rash Diagnostics Laboratory Results Results Past 24 Hours Test 12/18/16 04:50 Range/Units White Blood Count 8.01 4.8-10.8 K/uL Red Blood Count 4.03 4.2-5.4 M/uL Hemoglobin 12.8 12.0-16.0 g/dL Hematocrit 36.2 37-47 % Mean Corpuscular Volume 89.8 80-100 fL Mean Corpuscular Hemoglobin 31.8 25-34 pg Mean Corpuscular Hemoglobin Concent 35.4 32-36 g/dl Platelet Count 222 130-400 K/uL Mean Platelet Volume 8.8 7.4-10.4 fL Neutrophils (%) (Auto) 66.5 % Lymphocytes (%) (Auto) 23.6 % Monocytes (%) (Auto) 7.1 % Eosinophils (%) (Auto) 2.2 % Basophils (%) (Auto) 0.2 % Neutrophils # (Auto) 5.32 1.4-6.5 K/uL Lymphocytes # (Auto) 1.89 1.2-3.4 K/uL Monocytes # (Auto) 0.57 0.11-0.59 K/uL Eosinophils # (Auto) 0.18 0-0.5 K/uL Basophils # (Auto) 0.02 0-0.2 K/uL RDW Standard Deviation 40.6 36.4-46.3 fL RDW Coefficient of Variation 12.3 11.5-14.5 % Immature Granulocyte % (Auto) 0.4 % Immature Granulocyte # (Auto) 0.03 0.00-0.02 K/uL Sodium Level 139 136-145 mmol/L Potassium Level 3.5 3.5-5.1 mmol/L Chloride Level 108 98-107 mmol/L Carbon Dioxide Level 22 21-32 mmol/L Anion Gap 9.0 3-11 mmol/L Blood Urea Nitrogen 14 7-18 mg/dl Creatinine 0.95 0.60-1.20 mg/dl Est Creatinine Clear Calc Drug Dose 84.1 ml/min Estimated GFR () 83.3 Estimated GFR (Non- 71.8 BUN/Creatinine Ratio 14.4 10-20 Random Glucose 120 70-99 mg/dl Calcium Level 8.7 8.5-10.1 mg/dl Diagnostic Radiology ULTRASOUND KIDNEYS AND BLADDER CLINICAL HISTORY: Right ureteral stone. COMPARISON STUDY: Abdominal CT dated 12/16/2016. TECHNIQUE: Real-time, grayscale, and color flow sonography of the kidneys and bladder is performed. Images are reviewed in the transverse and longitudinal planes. FINDINGS: Kidneys: The kidneys demonstrate mild cortical atrophy. The right kidney measures 11.4 cm in length and the left kidney measures 11.5 cm in length. There is moderate right hydroureteronephrosis. An echogenic obstructing calculus is seen in the distal right ureter above the vesicoureteral junction. This measures at least 5 mm in length. No left-sided hydronephrosis is seen. No shadowing renal calculi are identified. There is no sonographic evidence of contour deforming renal mass lesion. No perinephric fluid is identified. Bladder: The bladder is normal in appearance. The left ureteral jet was much normal in the right. IMPRESSION: 1. There is an obstructing calculus in the distal right ureter measuring at least 5 mm. This causes moderate right hydroureteronephrosis. 2. There is no left-sided hydronephrosis. 3. The bladder was normal as visualized. The left ureteral jet was much stronger than the right. Electronically signed by: Kris Sanabria M.D. 12/18/2016 7:37 AM Dictated Date/Time: 12/18/2016 7:34 AM The status of this report is Signed. Draft = Not yet reviewed or approved by Radiologist. Signed = Reviewed and approved by Radiologist. KUB HISTORY: 46-year-old female presents with acute right-sided flank pain with history of kidney stones. COMPARISON: CT abdomen and pelvis 12/16/2016. TECHNIQUE: KUB radiograph. FINDINGS: The previously described 3 mm calculus of the distal right ureter seen on study dated 12/16/2016 is not definitively identified on today's exam. There are however multiple centrally lucent phleboliths within the right hemipelvis again identified. No uroliths are definitively identified. The bones appear intact. Bowel gas pattern is nonobstructive. IMPRESSION: Previously described 3 mm calculus of the distal right ureter is not definitively seen on today's study. Multiple centrally lucent phleboliths of the pelvis are redemonstrated. Electronically signed by: Christiano Adams 12/18/2016 7:28 AM Dictated Date/Time: 12/18/2016 7:22 AM The status of this report is Signed. Draft = Not yet reviewed or approved by Radiologist. Signed = Reviewed and approved by Radiologist. Impression Assessment and Plan Patient is a pleasant 46 y/o female, with PMHx of hypothyroidism, who presented to the ED because of worsening right flank pain. Obstructing 5mm right calculus in distal ureter w/ hydroureteronephrosis: - Admit to med/surg - IV NS @ 125 ml/hr - Flomax 0.4 mg HS - Strain urine - UA pending - Percocet q4 hrs, IV Morphine 1 mg q2 hrs, and IV Toradol 30 mg q6 hrs PRN pain management - Consult urology, appreciate recommendations Hypothyroidism: Continue Synthroid 88 mcg daily GI Prophylaxis: Maalox PRN, IV Zofran PRN, Colace and/or Milk of Mag PRN DVT Prophylaxis: TEDs/SCDs, ambulation Code Status: LEVEL I, FULL Dispo: From home, lives w/ - no discharge needs anticipated Level of Care Med/Surg Resuscitation Status FULL RESUSCITATION VTE Prophylaxis VTE Risk Assessment Done? Y/N: Yes Risk Level: Moderate Given or contraindicated: Juan Harris, SCD's Reviewed: Pt Seen/Exam by Me History Ongoing pain that is improving on pain meds. Tolerating PO. Had had very little UOP [employer]PER[employer]ACHIN[employer], but much increased on IVF. No chest pain or SOB. Agree with HPI/ROS as noted. General Appearance: WD/WN, no apparent distress Eye Exam: bilateral eye normal inspection, bilateral eye EOMI Respiratory: normal breath sounds, no respiratory distress Cardiovascular: normal peripheral pulses, regular rate, rhythm Gastrointestinal: non tender, soft Extremities: non-tender, no pedal edema Neurologic/Psychiatric: alert, normal mood/affect, oriented x 3 Skin Characteristics: normal color, warm/dry Assessment/Plan Agree with plan as outlined above Renal stone, urology following Possible cysto tomorrow if does not pass
--- NOTE | 2016-12-18 10:35 | Urology Consultation ---
History General Date of Service: Dec 18, 2016. Chief Complaint: right flank pain Primary Care Physician: Diony Mckeon M.D. Pt seen a urologist before?: No History of Present Illness 46 yo female presents to [facility] for the 2nd time this week for right flank pain. CT scan on 12-16 showed a right UVJ stone ~5mm. Stone difficult to visualize on KUB today d/t multiple pelvic phleboliths, but persists on renal u/s. She has no previous hx of stones. She reports developing hematuria ~2 weeks ago, and evaluated by her PCP for UTI , UC&S negative at the time. Also evaluated by SHARPLES MACHINE OPERATOR for possible vaginal bleeding. She came to [facility] ED on 12-16 after developing severe right flank pain. She was then discharged home, and did well yesterday until severe pain returned overnight. Pain is currently controlled. Denies n/v at this time. Denies dysuria or hematuria. She is currently afebrile. White count and Cr are normal. Imaging Imaging: CT (12-16-16), KUB, Ultrasound Laboratory Labs were reviewed and are within normal limits unless listed below. Labs are available in the chart and at [facility] Problem List Medical Problems: (1) Ureteral calculus, right Status: Acute (2) Ureteral calculus, right Status: Acute Past History hypothyroidism Past Surgical History: (x 2), orthopedic surgery (rotator cuff repair ), other (D&C, partial thyroidectomy) Family History Cancer Diabetes mellitus Heart disease Hypertension Kidney disease Kidney stones Social History Hx Tobacco Use In Past Year?: No Smoking: other (former smoker) Marital status: Housing status: lives with family Occupation status: employed History of MDRO No Allergies Coded Allergies: Meclizine (Verified Allergy, Unknown, migraine, 12/18/16) Medications Home Medications: Home Meds and Scripts Medications Dose Route/Sig Max Daily Dose Days Date Category Dose Instructions Pyridium (Phenazopyridine HCl) 200 Mg Tab 200 Mg PO TID PRN 12/18/16 Reported Flomax (Tamsulosin Hcl) 0.4 Mg Cap 0.4 Mg PO DAILY 12/18/16 Reported Percocet 5MG/325MG (Oxycodone/Acetaminophen) Tab 1-2 Tablets PO Q4H PRN 12/18/16 Reported PAIN Zofran (Ondansetron HCl) 4 Mg Tab 4 Mg PO Q8 PRN 12/18/16 Reported Womens Multi (Multiple Vitamins W/ Minerals) 1 Cap Cap 1 Cap PO DAILY 12/16/16 Reported Vitamin D3 (Cholecalciferol) 1,000 Unit Tab 2 Tab PO DAILY 90 12/16/16 Reported Synthroid (Levothyroxine Sodium) 88 Mcg Tab 88 Mcg PO DAILY 12/16/16 Reported Control Pills (Miscellaneous) Tab 1 Tab PO HS 12/16/16 Reported Bactrim Ds 800MG/160MG (Trimethoprim/Sulfamethoxazole) Tab 1 Tab PO BID 12/16/16 Reported Inpatient Medications: Current Inpatient Medications Medications (Trade) Dose Ordered Sig/Elly Route Start Time Stop Time Status Last Admin Dose Admin Acetaminophen (Tylenol Tab) 650 mg Q4H PRN PO 12/18/16 08:30 01/17/17 08:29 Al Hydrox/Mg Hydrox/Simethicone (Maalox Max Susp) 15 ml Q4H PRN PO 12/18/16 08:30 01/17/17 08:29 Magnesium Hydroxide (Milk Of Magnesia Susp) 30 ml Q6H PRN PO 12/18/16 08:30 01/17/17 08:29 Polyethylene (Miralax Powder Packet) 17 gm DAILY PRN PO 12/18/16 08:30 01/17/17 08:29 Ondansetron HCl (Zofran Inj) 4 mg Q6H PRN IV 12/18/16 08:30 01/17/17 08:29 Tamsulosin HCl (Flomax Cap) 0.4 mg QAM PO 12/18/16 09:00 01/17/17 08:59 Cholecalciferol (Vitamin D Tab) 1,000 inter.unit DAILY PO 12/18/16 09:00 01/17/17 08:59 Levothyroxine Sodium (Synthroid Tab) 88 mcg DAILYBB PO 12/19/16 06:00 01/18/17 05:59 Oxycodone/ Acetaminophen (Percocet 5-325mg Tab) 1 tab Q4H PRN PO 12/18/16 08:30 01/01/17 08:29 Miscellaneous Information (Order Awaiting Action) 1 ea QS N/A 12/18/16 16:00 01/17/17 15:59 Morphine Sulfate (MoRPHine SULFATE INJ) 1 mg Q2H PRN IV 12/18/16 08:30 01/01/17 08:29 Ketorolac Tromethamine (Toradol Inj) 30 mg Q6H PRN IV 12/18/16 08:30 12/23/16 08:29 Sodium Chloride 1,000 ml @ 125 mls/hr Q8H IV 12/18/16 08:30 01/17/17 08:29 Review of Systems Review of Systems Constitutional: No fever, No chills Eyes: No double vision Neurological: No dizzy Endocrine: No excessive thirst, No too hot, No too cold Gastrointestinal: No abdominal pain, No nausea, No vomiting Cardiovascular: No chest pain Respiratory: No shortness of breath Skin: No rash Musculoskeletal: No back pain Female : + kidney stones, No painful urination, No blood in urine Physical Exam Vital Signs: Vital Signs Past 12 Hours Date Time Temp Pulse Resp B/P (MAP) Pulse Ox O2 Delivery O2 Flow Rate FiO2 12/18/16 08:07 97 Room Air 12/18/16 07:48 82 18 126/88 97 Room Air 12/18/16 06:17 75 16 122/73 97 Room Air 12/18/16 04:20 36.6 84 16 153/87 97 Room Air Physical Exam: General Appearance: no apparent distress Eyes: bilateral eyes normal inspection ENT: hearing grossly normal Neck: no JVD Respiratory/Chest: no respiratory distress, no accessory muscle use Cardiovascular: no JVD Extremities: normal inspection Neurologic/Psychiatric: alert, normal mood/affect, oriented x 3 Skin: normal color Assessment & Plan Assessment & Plan A/P: Right UVJ stone AFVSS. Tx options discussed with the pt today have included a trial of passage with MET vs cysto with right ureteral stent placement and possible URS/LL. She prefers a trial of passage at this time d/t hx of poorly tolerating anesthesia with extreme n/v. Recommend supportive management with IVF, pain control, and Flomax. Will provide her a diet today, and make her NPO after midnight in the event she needs stent placed tomorrow. Labs, KUB, and chest x-ray in the AM. Thanks for the consult. Will continue to follow along with primary service at this time.
--- NOTE | 2016-12-18 10:57 | DIAGNOSTIC IMAGING REPORT ---
CHEST 2 VIEWS ROUTINE HISTORY:46 yearsFemalepre-op. Patient is asymptomatic. Preoperative exam. COMPARISON: None available TECHNIQUE: Frontal and lateral views of the chest. FINDINGS: Jhony mediastinal and hilar silhouettes are within normal limits. There is no pneumothorax, pleural effusion, overt pulmonary edema or focal airspace consolidation. Surgical clips are present within the right upper chest/lower right neck. Joint changes are present within the shoulders bilaterally. IMPRESSION: No acute cardiac pulmonary process. The above report was generated using voice recognition software. It may contain grammatical, syntax or spelling errors. Electronically signed by: Christiano Adams 12/18/2016 10:56 AM Dictated Date/Time: 12/18/2016 10:54 AM
[2016-12-18] MEDS: SODIUM CHLORIDE 0.9% 1000ML 1,000 ML IV SCH ×2 (11:18→16:20)
[2016-12-18] MEDS: TAMSULOSIN HCL 0.4 MG CAP PO SCH (11:26)
[2016-12-18] MEDS: CHOLECALCIFEROL 1000 INTER.UNIT TAB PO SCH (11:27)
[2016-12-18 12:10] LABS: URINE APPEARANCE CLEAR (CLEAR); URINE BILIRUBIN NEG (NEG); URINE COLOR DK YELLOW; URINE EPITHELIAL CELL AUTO 0-5 /lpf (0-5); URINE NITRITE POS (NEG); URINE SPECIFIC GRAVITY 1.016 (1.000-1.030); UROBILINOGEN NEG (NEG)
[2016-12-18 12:12] LABS: MANUAL MICROSCOPIC REQUIRED? NO; REVIEW REQ? NO
[2016-12-18 15:20] VITALS: BP 112/73; PULSE 77; TEMP 37; O2SAT 97
[2016-12-18 23:15] VITALS: BP 142/85; PULSE 111; TEMP 36.8; O2SAT 99
[2016-12-19] MEDS: SODIUM CHLORIDE 0.9% 1000ML 1,000 ML IV SCH ×2 (00:04→08:08)
[2016-12-19 04:00] VITALS: PULSE 76
[2016-12-19] MEDS ORDERED: LEVOTHYROXINE 88 MCG TAB PO SCH (06:00)
[2016-12-19 07:09] VITALS: BP 138/90; PULSE 74; TEMP 37; O2SAT 98
[2016-12-19 07:35] LABS: BUN/CREATININE RATIO 12.4 (10-20); CALCIUM 8.2 mg/dl (8.5-10.1); CREATININE 0.72 mg/dl (0.60-1.20)
[2016-12-19] MEDS: TAMSULOSIN HCL 0.4 MG CAP PO SCH (08:08)
[2016-12-19] MEDS: CHOLECALCIFEROL 1000 INTER.UNIT TAB PO SCH (08:08)
--- NOTE | 2016-12-19 08:50 | DIAGNOSTIC IMAGING REPORT ---
KUB CLINICAL HISTORY: right UVJ stone nephrocalcinosis COMPARISON STUDY: 12/18/2016 FINDINGS: Multiple pelvic calcifications a buckle which are vascular. As compared to a CT of 12/16/2016, I cannot entirely exclude the possibility of a residual calculus of the distal right ureter. If clinically indicated, a repeat CT study would be helpful. Bowel pattern remains nonobstructive. IMPRESSION: Difficult study to interpret due to the multiple pelvic vascular calcifications present. The Possibility of a distal right ureteral residual calculus is possible. If The patient remains symptomatic, a repeat CT study would be helpful. Electronically signed by: Sreekanth Peterson M.D. 12/19/2016 8:49 AM Dictated Date/Time: 12/19/2016 8:45 AM
--- NOTE | 2016-12-19 09:50 | Progress Note ---
Subjective Date of Service: Dec 19, 2016. Subjective Pt evaluation today including: conversation w/ patient, physical exam, chart review, lab review, review of studies Voiding: no voiding problems 46 year old female admitted with right distal stone. Denies significant pain. Reports bladder pressure and urinary frequency. Has been straining all urine and no stone noted. KUB images reviewed - unable to determine if distal ureteral stone is present due to multiple pelvic phleboliths. Denies fever, chills, n/v. Wishes to avoid surgery if possible. Problem List Medical Problems: (1) Ureteral calculus, right Status: Acute (2) Ureteral calculus, right Status: Acute Review of Systems Constitutional: No fever, No chills Eyes: No worsening of vision ENT: No hearing loss Respiratory: No cough Cardiac: No chest pain Abdomen: No pain Female : + see HPI, + urinary frequency, No dysuria, No hematuria Psychiatric: No depression symptoms Endo: No fatigue Objective Vital Signs Date Time Temp Pulse Resp B/P (MAP) Pulse Ox O2 Delivery O2 Flow Rate FiO2 12/19/16 08:00 Room Air 12/19/16 07:09 37.0 74 16 138/90 (106) 98 Room Air 12/19/16 04:00 76 12/19/16 00:30 Room Air 12/18/16 23:15 36.8 111 18 142/85 (104) 99 Room Air 12/18/16 20:15 Room Air 12/18/16 15:20 37.0 77 18 112/73 (86) 97 Room Air 12/18/16 12:00 Room Air Physical Exam General Appearance: WD/WN, no apparent distress ENT: hearing grossly normal Neck: no JVD Respiratory/Chest: no respiratory distress, no accessory muscle use Abdomen: soft Extremities: normal range of motion, non-tender, normal inspection, no pedal edema, no calf tenderness Neurologic/Psychiatric: alert, normal mood/affect, oriented x 3 Skin: normal color, warm/dry Laboratory Results Last 24 Hours Test 12/18/16 11:30 12/19/16 06:29 Urine Color DK YELLOW Urine Appearance CLEAR Urine pH 5.0 Urine Specific [place] 1.016 Urine Protein NEG Urine Glucose (UA) NEG Urine Ketones NEG Urine Occult Blood NEG Urine Nitrite POS Urine Bilirubin NEG Urine Urobilinogen NEG Urine Leukocyte Esterase NEG Urine WBC (Auto) 1-5 /hpf Urine RBC (Auto) 0-4 /hpf Urine Hyaline Casts (Auto) 1-5 /lpf Urine Epithelial Cells (Auto) 0-5 /lpf Urine Bacteria (Auto) NEG Sodium Level 142 mmol/L Potassium Level 4.0 mmol/L Chloride Level 112 mmol/L Carbon Dioxide Level 25 mmol/L Anion Gap 5.0 mmol/L Blood Urea Nitrogen 9 mg/dl Creatinine 0.72 mg/dl Est Creatinine Clear Calc Drug Dose 111.0 ml/min Estimated GFR () 116.4 Estimated GFR (Non- 100.4 BUN/Creatinine Ratio 12.4 Random Glucose 90 mg/dl Calcium Level 8.2 mg/dl Assessment and Plan Right distal stone She has minimal discomfort at this point and wishes to avoid surgery/stent if possible. Unable to determine stone presence on KUB. Given her lack of significant pain would recommend MET with tamsulosin, pyridium and .prn pain medications Ok to resume diet and d/c home for trial of passage. Encourage 2.5 - 3 L of fluid. Strain all urine. Will follow as out pt. Our office will call to schedule. May need IVP if no stone passes. Thanks for the consult. Please recall for any issues.
--- NOTE | 2016-12-19 09:52 | Consultant Recommendations ---
Student Services Coordinator Recommendations Date of Service Dec 19, 2016. Student Services Coordinator Recommendations Push fluids 2.5-3L daily. Strain all urine. Urology office will call to schedule follow up appt. Our office number is [phone] should you need to contact us.
[2016-12-19] MEDS ORDERED: PHEN-876 PO (11:28)
[2016-12-19] MEDS ORDERED: OXYC-57 PO (11:28)
[2016-12-19] MEDS ORDERED: TAMS0.4C38 PO (11:28)
--- NOTE | 2016-12-19 11:30 | Discharge Instructions ---
Discharge Instructions Date of Service Dec 19, 2016. Admission Reason for Admission: Ureteral Calculus, Right Discharge Discharge Diagnosis / Problem: R renal stone Discharge Goals Goal(s): Decrease discomfort, Improve function, Increase independence Activity Recommendations Activity Limitations: resume your previous activity . Instructions / Follow-Up Instructions / Follow-Up Urology next week Current Hospital Diet Patient's current hospital diet: Regular Diet Discharge Diet Recommended Diet: Regular Diet Pending Studies Studies pending at discharge: no Medical Emergencies . Who to Call and When: Medical Emergencies: If at any time you feel your situation is an emergency, please call 911 immediately. . Non-Emergent Contact Non-Emergency issues call your: Primary Care Provider . . "Provider Documentation" section prepared by Lauren Rivas. . Jointer Machine Operator Recommendations Jointer Machine Operator Recommendations: Push fluids 2.5-3L daily. Strain all urine. Urology office will call to schedule follow up appt. Our office number is [phone] should you need to contact us. VTE Core Measure Inpt VTE Proph given/why not?: Juan Harris, CARLINE's
--- NOTE | 2016-12-19 11:31 | Discharge Summary ---
Discharge Summary Date of Service Dec 19, 2016. Discharge Summary Admission Date: Dec 18, 2016 at 08:24 Discharge Date: Dec 19, 2016 Discharge Disposition: Home Principal Diagnosis: R renal stone Problems/Secondary Diagnoses: Medical Problems: 1. Hypothyroidism Surgical Problems: 1. Partial thyroidectomy 2. D&C 3. x2 4. Rotator cuff surgery Consultations: Urology Medication Reconciliation Continued Medications: Control Pills ( Control Pills) Tab 1 TAB PO HS, TAB Cholecalciferol (Vitamin D3) 1,000 Unit Tab 2 TAB PO DAILY for 90 Days, #180 TAB 3 Refills Levothyroxine Sodium (Synthroid) 88 Mcg Tab 88 MCG PO DAILY, TAB Multiple Vitamins W/ Minerals (Womens Multi) 1 Cap Cap 1 CAP PO DAILY Ondansetron Hcl (Zofran) 4 Mg Tab 4 MG PO Q8 PRN for Nausea, TAB Oxycodone/Acetaminophen 5MG/325MG (Percocet 5MG/325MG) Tab 1-2 TABLETS PO Q4H PRN for Pain, #15 TAB (This prescription has been renewed) PAIN Phenazopyridine HCl (Pyridium) 200 Mg Tab 200 MG PO TID PRN for Bladder pain, #6 TAB (This prescription has been renewed) Tamsulosin Hcl (Flomax) 0.4 Mg Cap 0.4 MG PO DAILY for 15 Days, #15 CAP (This prescription has been renewed) Discontinued Medications: Sulfa/Trimethoprim (Bactrim Ds 800MG/160MG) Tab 1 TAB PO BID, #6 TAB Discharge Exam Pt is doing well. She has not passed any stones yet, but pain is improved. Still with some flank pain and bladder spasms, but manageable. She has been able to tolerate PO without issue. Urinating without issue. Pt denies fever, SOB, chest pain, abd pain, n/v/c/d, LE pain or swelling. ROS reviewed and otherwise neg. Physical Exam: General Appearance: WD/WN, no apparent distress Respiratory/Chest: normal breath sounds, no respiratory distress Cardiovascular: regular rate, rhythm, no edema Abdomen / GI: soft, + tenderness (lower pelvic and minimal) Extremities: no calf tenderness, no pedal edema Neurologic/Psychiatric: alert, normal mood/affect, oriented x 3 Skin: normal color, warm/dry Hospital Course Patient is a pleasant 46 y/o female, with PMHx of hypothyroidism, who presented to the ED because of worsening right flank pain. Obstructing 5mm right calculus in distal ureter w/ hydroureteronephrosis: - Flomax 0.4 mg HS - Strain urine - UA with + nitrites but neg leuk est - Percocet and pyrimidine PRN - Consult urology, planning for outpt f/u Hypothyroidism: Continue Synthroid 88 mcg daily Total Time Spent: Greater than 30 minutes This includes examination of the patient, discharge planning, medication reconciliation, and communication with other providers. Discharge Instructions Please refer to the electronic Patient Visit Report (Discharge Instructions) for additional information. Follow-Up Urology next week Additional Copies To Diony Mckeon M.D.
[2016-12-19 11:36] VITALS: BP 138/90; PULSE 74; TEMP 37; O2SAT 98
[2017-01-06] MEDS ORDERED: TAMS0.4C38 PO (15:13)
[2017-01-30] MEDS ORDERED: OXYC-57 PO (11:07)
[2017-01-30] MEDS ORDERED: CIPR-255 PO (11:07)
[2017-01-30] MEDS ORDERED: PHEN-775 PO (11:07)
[2017-02-03] MEDS ORDERED: CHOL1000 PO (13:16)
[2017-02-03] MEDS ORDERED: MULT1CAP3 PO (13:16)
[2017-02-03] MEDS ORDERED: LEVO88TA PO (13:16)
[2017-02-03] MEDS ORDERED: BCPILLS PO (13:16)
== END 2016-12-19 12:26 | disposition home or self-care (01) | DRG 694 ==
LOC: C.EDB 04:17 → C.MSN 08:24 → EDBEDREQ 08:30 → ENRESERV 08:40
PROVIDERS: ADMIT Family Medicine; ATTEND Family Medicine
DX: N13.1 Hydronephrosis with ureteral stricture, not elsewhere classified (principal); E89.0 Postprocedural hypothyroidism; Z87.891 Personal history of nicotine dependence; Z79.3 Long term (current) use of hormonal contraceptives; Z79.899 Other long term (current) drug therapy; N20.1 Calculus of ureter; Z98.891 History of uterine scar from previous surgery; Z98.890 Other specified postprocedural states; Z83.3 Family history of diabetes mellitus

== ENCOUNTER → 2016-12-26 | Outpatient (CLI) | payer BC ==
[~2016-12-26] MED LIST changes: +BCPILLS PO; +CHOL1000 PO; +CIPR-255 PO; +KETO10TA PO; +LEVO88TA PO; +MULT1CAP3 PO; +OPTIRAY 300 IV PRN; +PHEN-775 PO; +PHEN-876 PO; -SULF800T23 PO
--- NOTE | 2016-12-26 15:23 | DIAGNOSTIC IMAGING REPORT ---
IVP CLINICAL HISTORY: Right ureteral stone. Urinary urgency. COMPARISON STUDY: CT of the abdomen and pelvis December 16, 2016 and KUB December 19, 2016. TECHNIQUE: A metal tile lather KUB was obtained initially. An intravenous pyelogram was then performed following intravenous injection 100 cc of Optiray 300. FINDINGS: A 5 mm x 2 mm comma shaped right pelvic calcification corresponds to the distal right ureteral calculus shown on CT of December 16, 2016. The nephrograms are symmetric. There is only mild slight asymmetric dilatation of the right collecting system and right ureter. Right hydronephrosis has diminished since ultrasound of December 18, 2016. No additional urinary calculi are identified. There are no upper tract filling defects to suggest a urothelial lesion by IVP. Additional pelvic calcifications reflect phleboliths. Bowel gas pattern is normal. IMPRESSION: No change in position of the 5 mm x 2 mm distal right ureteral calculus with minimal right hydroureteronephrosis. Upstream dilatation has diminished since prior ultrasound of December 18, 2016. Electronically signed by: Juan Zhong M.D. 12/26/2016 3:21 PM Dictated Date/Time: 12/26/2016 3:17 PM
== END | disposition home or self-care (01) ==
LOC: C.RAD 13:51
PROVIDERS: ATTEND Nurse Practitioner Adult Health
DX: N20.1 Calculus of ureter (principal)

== ENCOUNTER → 2017-01-16 | Day surgery (SDC) | payer BC ==
[2017-01-06 15:14] VITALS: Ht 167.6 cm; Wt 91.0 kg
--- NOTE | 2017-01-06 15:33 | PAT Medication Instructions ---
Service Date Jan 06, 2017. Current Home Medication List Control Pills ( Control Pills), 1 TAB PO HS Cholecalciferol (Vitamin D3), 22,000 UNITS PO QAM Levothyroxine Sodium (Synthroid), 88 MCG PO QAM Multiple Vitamins W/ Minerals (Womens Multi), 1 CAP PO NOON Tamsulosin Hcl (Flomax), 0.4 MG PO QPM Medication Instructions For Your Scheduled Surgery - Hold the following medications the morning of surgery: Cholecalciferol (Vitamin D3), 22,000 UNITS PO QAM Multiple Vitamins W/ Minerals (Womens Multi), 1 CAP PO NOON - Take the following medications the morning of surgery with a sip of water OTHERWISE NOTHING TO EAT OR DRINK AFTER MIDNIGHT: Levothyroxine Sodium (Synthroid), 88 MCG PO QAM - Take the following medications as scheduled the night before surgery: Control Pills ( Control Pills), 1 TAB PO HS Tamsulosin Hcl (Flomax), 0.4 MG PO QPM If you have any questions please call us at [phone] or [phone] or [phone]
[~2017-01-16] VITALS: Ht 167.6 cm; Wt 91.0 kg
[~2017-01-16] MED LIST changes: +ATROPINE SULFATE 0.1 MG/ML 5ML SYR IV PRN; +CIPROFLOXACIN / D5W 400 MG IV SCH; +DEXAMETHASONE SOD INJ 4 MG/ML VIAL ONE; +EpHEDrine SULFATE INJ 50 MG/ML AMP IV PRN; +FENTANYL CITRATE INJ 50 MCG/1 ML 2 ML VIAL IV PRN; +FENTANYL CITRATE INJ 50 MCG/1 ML 2 ML VIAL ONE; +FLUMAZENIL 0.1 MG/1 ML 10 ML VIAL IV PRN; +HYDROmorphone INJ 2 MG/ML SYR/VIAL IV PRN; +LABETALOL HCL IV 5 MG/ML 20ML IV PRN; +LACTATED RINGER'S 1000ML 1,000 ML IV SCH; +LIDOCAINE HCL 2% 2 ML VIAL (20MG/ML) ONE; +MEPERIDINE HCL 25 MG/ML CARP IV PRN; +MIDAZOLAM HCL 1 MG/ML 2ML VIAL ONE; +NALOXONE HCL 0.4 MG/1 ML VIAL/CARP IV PRN; -ONDA4TAB46 PO; +ONDANSETRON INJ 2 MG/ML 2 ML VIAL IV PRN; +ONDANSETRON INJ 2 MG/ML 2 ML VIAL ONE; -OPTIRAY 300 IV PRN; +OXYCODONE/ACETAMINOPHEN 5-325 TAB PO PRN; -PHEN-876 PO; +PHENYLEPHRINE 100MCG/ML 5ML SYR IV PRN; +PROPOFOL IV EMULSION 10 MG/ML 20 ML VIAL IV ONE; +SCOPOLAMINE 1.5 MG TDSY TD ONE
--- NOTE | 2017-01-16 08:30 | History & Physical Bridge Note ---
H&P Re-Evaluation Bridge Note: I have examined the patient, reviewed the History & Physical and in the interval since the performance of the History & Physical I have noted the following changes of clinical significance: No changes noted
--- NOTE | 2017-01-16 10:09 | Discharge Instructions ---
Discharge Instructions Date of Service Jan 16, 2017. Admission Reason for Admission: Stones Discharge Discharge Diagnosis / Problem: Left distal ureteral stone s/p ESWL Discharge Goals Goal(s): Improve function, Improve disease control, Therapeutic intervention Activity Recommendations Activity Limitations: as noted below Lifting Limitations: no more than 25 pounds, gradually increase as tolerated ( over 3 days) Exercise/Sports Limitations: rest today, gradually increase as tolerated (jordan 3 days) May Resume Sexual Activity: when tolerated Shower/Bathe: no limitations Driving or Machine Use: resume 1 day after discharge . Instructions / Follow-Up Instructions / Follow-Up Strain urine for stone fragments Follow-up in office as scheduled with KUB Xray before visit Discharge Diet Recommended Diet: Regular Diet (good fluid intake) Procedures Procedures Performed: L distal ureteral ESWL Pending Studies Studies pending at discharge: no Medical Emergencies . Who to Call and When: Medical Emergencies: If at any time you feel your situation is an emergency, please call 911 immediately. . Non-Emergent Contact Non-Emergency issues call your: Urologist Call Non-Emergent contact if: you have a fever, temperature is above 101, your pain is not controlled, your pain is worsening, your pain is unusual for you, your pain is concerning you, you have any medication questions . . "Provider Documentation" section prepared by Danis Sellers. . VTE Core Measure Inpt VTE Proph given/why not?: SCD's
--- NOTE | 2017-01-16 10:09 | [facility] Operative Report ---
Operative Report Operative Date Jan 16, 2017. Pre-Operative Diagnosis R distal ureteral stone Post-Operative Diagnosis Same Procedure(s) Performed R distal ureteral ESWL Surgeon Marlo Finney Fuse Maker Surgeon(s) NA Estimated Blood Loss NA Findings Good stone fragmentation on fluoro Specimens NA Drains NA Anesthesia MAC Complication(s) None Disposition Recovery Room / PACU Indications 46 yo female with R distal ureteral stone on KUB, persists on IVP here for ESWL. See H&P for further details. Description of Procedure The patient was brought to the litho suite. He was correctly identified and the stone was visualized on his most recent x-rays. After the correct time out was performed the patient was positioned over the therapy head. An adequate level of anesthesia was administered. The extracorporeal shockwave lithotripsy treatment was then commenced. Please see the [place] sheet for complete treatment summary. After completion of the procedure the patient was taken to the recovery room in stable condition. I attest to the content of the Intraoperative Record and any orders documented therein. Any exceptions are noted below.
[2017-01-16 10:40] VITALS: TEMP 37.1
--- NOTE | 2017-01-16 10:41 | [facility] Post Operative Brief Note ---
Immediate Operative Summary Operative Date Jan 16, 2017. Pre-Operative Diagnosis Right distal ureteral calculi Post-Operative Diagnosis Same as pre-op Procedure(s) Performed R distal ureteral ESWL Surgeon Dr. Wes Sellers Engraver Wood Surgeon(s) None Estimated Blood Loss 0 mL Findings Good stone fragmentations on fluoro Specimens None Drains NA Anesthesia MAC Complication(s) None Disposition Recovery Room / PACU
--- NOTE | 2017-01-16 11:07 | Anesthesia Progress Nt - [facility] ---
Anesthesia Post Op Note Date & Time Jan 16, 2017 at 11:07 Vital Signs Pain Intensity: 0 Vital Signs Past 12 Hours Date Time Temp Pulse Resp B/P (MAP) Pulse Ox O2 Delivery O2 Flow Rate FiO2 01/16/17 10:40 37.1 92 20 122/81 (95) 96 Room Air 01/16/17 07:43 36.8 86 22 142/90 (107) 99 Room Air Notes Mental Status: alert / awake / arousable, participated in evaluation Pt Amnestic to Procedure: Yes Nausea / Vomiting: adequately controlled Pain: adequately controlled Airway Patency, RR, SpO2: stable & adequate BP & HR: stable & adequate Hydration State: stable & adequate Anesthetic Complications: no major complications apparent The patient did well with MAC sedation.
[2017-01-16 11:24] VITALS: BP 133/83; PULSE 76; O2SAT 98
== END | disposition home or self-care (01) ==
LOC: X.SURG 07:29
PROVIDERS: ATTEND Urology
DX: N20.1 Calculus of ureter (principal); E03.9 Hypothyroidism, unspecified; E55.9 Vitamin D deficiency, unspecified; Z82.49 Family history of ischemic heart disease and other diseases of the circulatory system; Z80.41 Family history of malignant neoplasm of ovary; Z87.891 Personal history of nicotine dependence; Z79.899 Other long term (current) drug therapy

== ENCOUNTER → 2017-01-16 | Outpatient (CLI) | payer BC ==
[~2017-01-16] MED LIST changes: -ATROPINE SULFATE 0.1 MG/ML 5ML SYR IV PRN; -CIPROFLOXACIN / D5W 400 MG IV SCH; -DEXAMETHASONE SOD INJ 4 MG/ML VIAL ONE; -EpHEDrine SULFATE INJ 50 MG/ML AMP IV PRN; -FENTANYL CITRATE INJ 50 MCG/1 ML 2 ML VIAL IV PRN; -FENTANYL CITRATE INJ 50 MCG/1 ML 2 ML VIAL ONE; -FLUMAZENIL 0.1 MG/1 ML 10 ML VIAL IV PRN; -HYDROmorphone INJ 2 MG/ML SYR/VIAL IV PRN; -LABETALOL HCL IV 5 MG/ML 20ML IV PRN; -LACTATED RINGER'S 1000ML 1,000 ML IV SCH; -LIDOCAINE HCL 2% 2 ML VIAL (20MG/ML) ONE; -MEPERIDINE HCL 25 MG/ML CARP IV PRN; -MIDAZOLAM HCL 1 MG/ML 2ML VIAL ONE; -NALOXONE HCL 0.4 MG/1 ML VIAL/CARP IV PRN; -ONDANSETRON INJ 2 MG/ML 2 ML VIAL IV PRN; -ONDANSETRON INJ 2 MG/ML 2 ML VIAL ONE; -OXYCODONE/ACETAMINOPHEN 5-325 TAB PO PRN; -PHENYLEPHRINE 100MCG/ML 5ML SYR IV PRN; -PROPOFOL IV EMULSION 10 MG/ML 20 ML VIAL IV ONE; -SCOPOLAMINE 1.5 MG TDSY TD ONE
--- NOTE | 2017-01-16 07:10 | DIAGNOSTIC IMAGING REPORT ---
KUB CLINICAL HISTORY: 46 years-old Female presenting with ureteral stone. TECHNIQUE: Single supine view of the abdomen was obtained. COMPARISON: 12/26/2016. FINDINGS: Previously noted 5 mm distal right ureteral calculus is unchanged in position. Multiple phleboliths noted. Nonobstructive bowel gas pattern. Gas and stool mildly degrades evaluation of the left kidney. Allowing for the limitation, no nephrolithiasis. No gross pneumoperitoneum. Osseous structures normal. IMPRESSION: 1. No change in position of the distal right ureteral calculus. Electronically signed by: Diony Leong M.D. 01/16/2017 7:09 AM Dictated Date/Time: 01/16/2017 7:07 AM
== END | disposition home or self-care (01) ==
LOC: C.RAD 06:56
PROVIDERS: ATTEND Nurse Practitioner Adult Health
DX: N20.1 Calculus of ureter (principal)

== ENCOUNTER → 2017-01-28 | Outpatient (CLI) | payer BC ==
[2017-01-28 19:04] LABS: BASO % 0.2 %; BASO ABS # 0.02 K/uL (0-0.2); COMPLETE YES; EOS % 1.6 %; HEMATOCRIT 36.6 % (37-47); IG% 0.3 %; LYMPH ABS # 2.25 K/uL (1.2-3.4); MEAN CELL VOLUME 89.5 fL (80-100); MEAN CORPUSCULAR HEMOGLOBIN 31.1 pg (25-34); MEAN CORPUSCULAR HGB CONC 34.7 g/dl (32-36); MEAN PLATELET VOLUME 9.3 fL (7.4-10.4); MONO % 6.2 %; NEUT % 69.7 %; PLATELET COUNT 265 K/uL (130-400); RED BLOOD COUNT 4.09 M/uL (4.2-5.4); WHITE BLOOD COUNT 10.24 K/uL (4.8-10.8)
== END | disposition home or self-care (01) ==
LOC: C.LAB 17:47
PROVIDERS: ATTEND Urology
DX: N20.0 Calculus of kidney (principal)

== ENCOUNTER → 2017-01-28 | Outpatient (CLI) | payer BC ==
--- NOTE | 2017-01-28 07:54 | DIAGNOSTIC IMAGING REPORT ---
KUB CLINICAL HISTORY: N20.1 Ureteral stone COMPARISON STUDY: 01/16/2017 FINDINGS: There is no pathologic bowel dilatation. A sclerotic density at the level the left L5 transverse process, is felt to be bony and not related to a ureteral calculus. Multiple pelvic basin calcifications remain similar in orientation. One of these likely corresponds to the patient's known distal right ureteral calculus. IMPRESSION: 1. No evidence of pathologic bowel dilatation 2. No renal calculi identified 3. No change in the multiple pelvic basin calcifications. This would seem to indicate that the recently described distal right ureteral calculus is still present. Electronically signed by: Frankie Fox M.D. 01/28/2017 7:52 AM Dictated Date/Time: 01/28/2017 7:48 AM
== END | disposition home or self-care (01) ==
LOC: C.RAD 07:12
PROVIDERS: ATTEND Nurse Practitioner Adult Health
DX: N20.1 Calculus of ureter (principal)

== ENCOUNTER → 2017-01-29 | Outpatient (CLI) | payer BC ==
[2017-01-29 17:58] LABS: BLOOD UREA NITROGEN 13 mg/dl (7-18); BUN/CREATININE RATIO 17.2 (10-20); CALCIUM 8.8 mg/dl (8.5-10.1); CARBON DIOXIDE 24 mmol/L (21-32); CHLORIDE 108 mmol/L (98-107); CREATININE 0.74 mg/dl (0.60-1.20); GLUCOSE 99 mg/dl (70-99); POTASSIUM 3.6 mmol/L (3.5-5.1); SODIUM 140 mmol/L (136-145)
== END | disposition home or self-care (01) ==
LOC: C.LAB 16:33
PROVIDERS: ATTEND Urology
DX: N20.0 Calculus of kidney (principal)

== ENCOUNTER 2017-01-30 09:03 | Day surgery (SDC) | payer BC ==
[2017-01-29 15:53] VITALS: BMI 31.0
[~2017-01-30] VITALS: Ht 167.6 cm; Wt 88.6 kg
[~2017-01-30 09:03] MED LIST changes: -BCPILLS PO; -CHOL1000 PO; -CIPR-255 PO; +CIPROFLOXACIN / D5W 400 MG IV SCH; -KETO10TA PO; +LACTATED RINGER'S 1000ML IV SCH; -LEVO88TA PO; -MULT1CAP3 PO; -OXYC-57 PO; -PHEN-775 PO; +SCOPOLAMINE 1.5 MG TDSY TD SCH
[2017-01-30 09:19] VITALS: BP 166/82; PULSE 88; TEMP 37; O2SAT 100; Ht 167.6 cm; Wt 88.6 kg
[2017-01-30] MEDS ORDERED: MIDAZOLAM HCL 1 MG/ML 2ML VIAL ONE (10:19)
[2017-01-30] MEDS ORDERED: FENTANYL CITRATE INJ 50 MCG/1 ML 2 ML VIAL ONE ×2 (10:20→11:38)
[2017-01-30] MEDS ORDERED: PROMETHAZINE HCL INJ 12.5 MG in SODIUM CHLORIDE 0.9% 50ML 50 ML IV PRN (10:30)
[2017-01-30] MEDS ORDERED: KETOROLAC TROMETHAMINE 30 MG/ML VIAL IV. PRN (10:30)
[2017-01-30] MEDS ORDERED: EpHEDrine SULFATE INJ 50 MG/ML AMP IV PRN (10:30)
[2017-01-30] MEDS ORDERED: ATROPINE SULFATE 0.1 MG/ML 5ML SYR IV PRN (10:30)
[2017-01-30] MEDS ORDERED: CONRAY 30% 150ML BOTTLE ONE (11:00)
[2017-01-30] MEDS ORDERED: CIPR-255 PO (11:07)
[2017-01-30] MEDS ORDERED: PHEN-775 PO (11:07)
[2017-01-30] MEDS ORDERED: OXYC-57 PO (11:07)
--- NOTE | 2017-01-30 11:10 | Discharge Instructions ---
Discharge Instructions Date of Service Jan 30, 2017. Admission Reason for Admission: Stones Discharge Discharge Diagnosis / Problem: stone Discharge Goals Goal(s): Decrease discomfort, Improve function, Increase independence, Improve disease control Activity Recommendations Activity Limitations: resume your previous activity Lifting Limitations: none Exercise/Sports Limitations: none May Resume Sexual Activity: when tolerated Shower/Bathe: no limitations Driving or Machine Use: no limitations . Instructions / Follow-Up Instructions / Follow-Up Please come to Dr. Farley's office on February 09 at 1:30PM to have your stent removed. Discharge Diet Recommended Diet: Regular Diet Pending Studies Studies pending at discharge: no Medical Emergencies . Who to Call and When: Medical Emergencies: If at any time you feel your situation is an emergency, please call 911 immediately. . Non-Emergent Contact Non-Emergency issues call your: Urologist Call Non-Emergent contact if: you have a fever, temperature is above 101.5, your pain is not controlled, your pain is worsening . . "Provider Documentation" section prepared by Hardik Diaz. . VTE Core Measure Inpt VTE Proph given/why not?: Treatment not indicated [place] Drug Monitoring Program Search Results: patient reviewed within database, no issues identified Drug Monitoring Findings: numerous rx's in the past year - but all associated with acute events (surgery, etc)
[2017-01-30] MEDS ORDERED: ONDANSETRON INJ 2 MG/ML 2 ML VIAL ONE (11:37)
[2017-01-30] MEDS ORDERED: PROPOFOL IV EMULSION 10 MG/ML 20 ML VIAL IV ONE ×2 (11:37)
[2017-01-30] MEDS ORDERED: DEXAMETHASONE SOD INJ 4 MG/ML VIAL ONE (11:37)
[2017-01-30] MEDS ORDERED: LIDOCAINE HCL 2% 2 ML VIAL (20MG/ML) ONE (11:53)
[2017-01-30] MEDS ORDERED: SODIUM CHLORIDE 0.9% 1000ML 1,000 ML IV SCH (12:11)
[2017-01-30] MEDS ORDERED: OXYCODONE/ACETAMINOPHEN 5-325 TAB PO PRN ×2 (12:15)
[2017-01-30] MEDS ORDERED: ACETAMINOPHEN 325 MG TAB PO PRN (12:15)
--- NOTE | 2017-01-30 12:19 | [facility] Operative Report ---
Operative Report Operative Date Jan 30, 2017. Pre-Operative Diagnosis Right nephrolithiasis Post-Operative Diagnosis Same as preoperative diagnosis Procedure(s) Performed Right Cystoscopy, Ureteroscopy, Laser Lithotripsy; right stent placement ([id number]) Surgeon Dr. Farley Traffic Observer Surgeon(s) None Estimated Blood Loss 5 ml Findings Impacted distal right ureteral stones 2 Specimens A. Right ureteral stone sent for chemical analysis Drains 6 Malay by 24cm Anesthesia Gen. Complication(s) None Disposition Recovery Room / PACU (stable) Indications Symptomatic ureteral stone Description of Procedure Mona Casillas was identified in the preoperative holding area, appropriate informed consents were reviewed and completed and the patient was transported to the operating suite. Upon arrival she received appropriate preoperative antibiotics the form of ciprofloxacin. General anesthesia was achieved, and she was placed in dorsal lithotomy position where she was sterilely prepped and draped in standard fashion. I began the case by passing a cystoscope per urethra. Inspection of the bladder revealed a healthy-appearing mucosa without stones or tumors identified. Right ureteral orifice appeared to be mounded and slightly erythematous consistent with a distal stone. Under fluoroscopic guidance I was able to pass a wire through the right ureteral orifice to the level of the kidney. I then exited with the cystoscope and attempted to reentered with a semirigid ureteroscope. I was unable to guide this into the distal ureter secondary to the edema. Utilizing a semirigid ureteroscope, I passed a second wire into the ureter and advanced it to the kidney. Attempting a railroading technique over top of one wire I was still unable to pass the scope adequately into the edematous distal ureter. I then withdrew the scope and passed a 10 Malay double-lumen catheter over one of the wires. I did opacified the upper tracts and saw no extravasation and modest hydronephrosis. I left this 10 Malay double-lumen catheter dilate the ureter slightly and then I withdrew. I then attempted again to pass the scope over a wire. Fortunately , this time it was successful and I was able to guide this into the distal ureter. After by passing this extremely edematous and irritated tissue, I was able to identify 2 stones impacted in the wall of the ureter. I was able to free these from inside of impaction and fragment these in the pieces deemed safe for spontaneous passage. Last a 400 laser fiber to do so. I attempted to irrigate all pieces out of the ureter. After clearing the ureter I withdrew the scope. On exit ureteroscopy, I did note that she is still quite edematous and irritated for an area approximately 2-3 cm in the distal most ureter. I placed a 6 Malay by 24 synovator double-J ureteral stent over the existing safety wire, observing a good curl in the kidney as well as the bladder. A irrigated several stone fragments out of the bladder, and concluded the case. Patient was extubated and taken to the PACU in stable condition. I attest to the content of the Intraoperative Record and any orders documented therein. Any exceptions are noted below.
[2017-01-30] MEDS: FENTANYL CITRATE INJ 50 MCG/1 ML 2 ML VIAL IV PRN ×3 (12:53→13:03)
[2017-01-30 13:35] VITALS: TEMP 36.5
[2017-01-30 13:50] VITALS: BP 134/76; PULSE 82; O2SAT 97
[2017-01-30 14:20] VITALS: BP 142/80; PULSE 80; O2SAT 99
[2017-01-30 14:50] VITALS: BP 139/86; PULSE 85; O2SAT 99
[2017-01-30] MEDS ORDERED: TAMSULOSIN HCL 0.4 MG CAP PO SCH (15:00)
[2017-01-30] MEDS ORDERED: KETOROLAC TROMETHAMINE 30 MG/ML VIAL IV. SCH (15:00)
--- NOTE | 2017-01-30 15:03 | Anesthesiology Progress Note ---
Anesthesia Post Op Note Date & Time Jan 30, 2017 at 15:03 Vital Signs Pain Intensity: 6 Vital Signs Past 12 Hours Date Time Temp Pulse Resp B/P (MAP) Pulse Ox O2 Delivery O2 Flow Rate FiO2 01/30/17 14:50 85 18 139/86 99 Room Air 01/30/17 14:20 80 18 142/80 99 Room Air 01/30/17 13:50 82 18 134/76 97 Room Air 01/30/17 13:35 36.5 85 20 150/94 96 Room Air 01/30/17 13:25 36.5 83 18 154/91 96 Room Air 01/30/17 13:15 81 18 156/92 96 Room Air 01/30/17 13:05 88 18 160/105 95 Room Air 01/30/17 12:55 93 18 174/107 97 Room Air 01/30/17 12:45 99 18 171/96 98 Room Air 01/30/17 12:35 105 18 179/98 100 Mask 10 01/30/17 12:25 103 18 156/92 100 Mask 10 01/30/17 12:17 36 109 12 165/91 100 Mask 10 01/30/17 09:19 37 88 18 166/82 (110) 100 Room Air Notes Mental Status: alert / awake / arousable, participated in evaluation Pt Amnestic to Procedure: Yes Nausea / Vomiting: adequately controlled Pain: adequately controlled Airway Patency, RR, SpO2: stable & adequate BP & HR: stable & adequate Hydration State: stable & adequate Anesthetic Complications: no major complications apparent
[2017-01-30] MEDS ORDERED: CHECK SCOPOLAMINE PATCH PLACEMENT SCH (16:00)
[2017-02-03] MEDS ORDERED: MULT1CAP3 PO (13:16)
[2017-02-03] MEDS ORDERED: BCPILLS PO (13:16)
[2017-02-03] MEDS ORDERED: CHOL1000 PO (13:16)
[2017-02-03] MEDS ORDERED: LEVO88TA PO (13:16)
== END 2017-01-30 15:28 | disposition home or self-care (01) ==
LOC: C.ACU 09:03
PROVIDERS: ATTEND Urology
DX: N20.1 Calculus of ureter (principal); N39.0 Urinary tract infection, site not specified; N13.30 Unspecified hydronephrosis; R53.83 Other fatigue; E03.9 Hypothyroidism, unspecified; M79.1 Myalgia; E55.9 Vitamin D deficiency, unspecified; R63.5 Abnormal weight gain; Z87.891 Personal history of nicotine dependence; Z79.899 Other long term (current) drug therapy; J06.9 Acute upper respiratory infection, unspecified

== ENCOUNTER 2017-02-03 15:51 | Emergency (ER) | payer BC ==
[~2017-02-03 15:51] MED LIST changes: +BCPILLS PO; +CHOL1000 PO; +CIPR-255 PO; -CIPROFLOXACIN / D5W 400 MG IV SCH; -LACTATED RINGER'S 1000ML IV SCH; +LEVO88TA PO; +MULT1CAP3 PO; +OXYC-57 PO; +PHEN-775 PO; -SCOPOLAMINE 1.5 MG TDSY TD SCH
[2017-02-03 15:56] VITALS: TEMP 37; Ht 167.6 cm
[2017-02-03] MEDS ORDERED: MoRPHine SULFATE 10 MG/ML CARP/VIAL IV STA (17:06)
[2017-02-03] MEDS ORDERED: ACETAMINOPHEN IV 100 ML IV STA (17:06)
[2017-02-03] MEDS ORDERED: ONDANSETRON INJ 2 MG/ML 2 ML VIAL IV STA (17:06)
[2017-02-03] MEDS ORDERED: SODIUM CHLORIDE 0.9% 1000ML 1,000 ML IV STA (17:06)
[2017-02-03] MEDS ORDERED: MoRPHine SULFATE 10 MG/ML CARP/VIAL ONE (17:33)
[2017-02-03] MEDS ORDERED: ONDANSETRON INJ 2 MG/ML 2 ML VIAL ONE (17:34)
[2017-02-03] MEDS ORDERED: ACETAMINOPHEN 1000 MG/100 ML IV IV ONE (17:57)
[2017-02-03 17:59] LABS: BASO % 0.3 %; BASO ABS # 0.03 K/uL (0-0.2); COMPLETE YES; EOS % 1.6 %; HEMATOCRIT 41.2 % (37-47); IG% 0.3 %; LYMPH % 18.8 %; MEAN CELL VOLUME 88.2 fL (80-100); MEAN CORPUSCULAR HEMOGLOBIN 31.5 pg (25-34); MEAN CORPUSCULAR HGB CONC 35.7 g/dl (32-36); MONO % 6.9 %; NEUT % 72.1 %; PLATELET COUNT 262 K/uL (130-400); RED BLOOD COUNT 4.67 M/uL (4.2-5.4); WHITE BLOOD COUNT 10.62 K/uL (4.8-10.8)
[2017-02-03 18:20] LABS: BLOOD UREA NITROGEN 13 mg/dl (7-18); CREATININE 0.83 mg/dl (0.60-1.20); GLUCOSE 106 mg/dl (70-99)
[2017-02-03 18:21] LABS: BUN/CREATININE RATIO 15.4 (10-20); CALCIUM 9.1 mg/dl (8.5-10.1); CARBON DIOXIDE 24 mmol/L (21-32); CHLORIDE 107 mmol/L (98-107); POTASSIUM 3.7 mmol/L (3.5-5.1); SODIUM 137 mmol/L (136-145)
[2017-02-03 18:28] LABS: MANUAL MICROSCOPIC REQUIRED? YES; REVIEW REQ? NO
[2017-02-03 18:29] LABS: URINE APPEARANCE CLOUDY (CLEAR); URINE COLOR RED-ORANGE; URINE SPECIFIC GRAVITY 1.027 (1.000-1.030)
[2017-02-03 18:30] LABS: SULFASALICYLIC ACID POS (NEG)
--- NOTE | 2017-02-03 18:38 | EMERGENCY ROOM VISIT NOTE ---
History First contact with patient: 16:58 Chief Complaint: KIDNEY STONE Stated Complaint: PAIN History of Present Illness The patient is a 46 year old female who presents to the Emergency Room with complaints of right flank pain. Patient states she developed symptomatic right- sided kidney stones approximately 2 months ago. She had a lithotripsy procedure 2 weeks ago that was unsuccessful. She then had a procedure by Dr. Farley who removed 2 large stones and placed a ureteral stent on 01/30. The patient states that she initially had improving symptoms and was feeling well on Thursday, however yesterday she began to develop worsening flank pain that felt similar to when she had kidney stones and today her pain has been unbearable. She has been taking oxycodone up to 4 at a time without much improvement in her pain. Her last dose of oxycodone was at 1:30 PM today. She reports associated chills and nausea as well as increased pain and pressure with urination that is new since yesterday. She denies any fevers, chills, chest pain, shortness of breath, palpitations, dizziness or syncope, vomiting, diarrhea, constipation, rash. Review of Systems A complete 10 point review of systems was reviewed with the patient with pertinent positives and negatives as per history of present illness. All else were negative. Past Medical/Surgical History Medical Problems: (1) Bronchitis (2) Pneumonia Surgical Problems: (1) History of thyroidectomy Family History Cancer Diabetes mellitus Heart disease Hypertension Kidney disease Kidney stones Social History Smoking Status: Former Smoker Alcohol Use: occasionally Marital Status: Housing Status: lives with family Occupation Status: employed Current/Historical Medications Scheduled Control Pills ( Control Pills), 1 TAB PO HS Cholecalciferol (Vitamin D3), 2,000 INTER.UNIT PO QDL Ciprofloxacin Hcl (Cipro), 500 MG PO BID Levothyroxine Sodium (Synthroid), 88 MCG PO QAM Multiple Vitamins W/ Minerals (Womens Multi), 1 CAP PO QDL Phenazopyridine Hcl (Pyridium), 200 MG PO BID Tamsulosin Hcl (Flomax), 0.4 MG PO DAILY Scheduled PRN Ketorolac Tromethamine (Toradol), 1 TAB PO Q6H PRN for Pain Oxycodone/Acetaminophen 5MG/325MG (Percocet 5MG/325MG), 1-2 TABLETS PO Q4H PRN for Pain Physical Exam Vital Signs Date Time Temp Pulse Resp B/P (MAP) Pulse Ox O2 Delivery O2 Flow Rate FiO2 02/03/17 21:36 88 20 112/80 96 02/03/17 20:14 86 20 126/88 97 02/03/17 19:11 88 20 135/87 99 Room Air 02/03/17 15:56 37.0 110 17 146/92 95 Room Air Physical Exam CONSTITUTIONAL: No acute distress, but appears quite uncomfortable and in pain. Well appearing and well nourished. Alert and oriented X 4 with normal affect. HEENT: Normocephalic, atraumatic. Pupils equal, round and reactive to light, EOMI. TMs normal. Pharynx normal. Moist mucous membranes. NECK: Supple, full active range of motion without discomfort. RESPIRATORY: Clear to auscultation bilaterally with no wheezing, crackles, rhonchi or stridor. Equal expansion bilaterally. CARDIOVASCULAR: Regular rate and rhythm with no murmurs, rubs or gallops. Normal peripheral perfusion. No edema. GASTROINTESTINAL: Moderate right flank and right-sided abdominal tenderness to palpation. Positive right CVA tenderness. Soft, nondistended. Bowel sounds present in all quadrants. MUSCULOSKELETAL: Full range of motion of all joints without discomfort. INTEGUMENTARY: No rash or other significant dermatologic conditions noted. NEUROLOGIC: Cranial nerves II-XII grossly intact. No focal neurologic deficits noted. Medical Decision & Procedures ER Provider Diagnostic Interpretation: CT OF THE ABDOMEN AND PELVIS WITH CONTRAST CLINICAL HISTORY: Right flank pain. Ureteral stent placed 4 days ago. COMPARISON STUDY: CT of the abdomen and pelvis December 16, 2016 and KUB performed earlier today. TECHNIQUE: Following IV administration of 95 mL of Optiray-320, axial images of the abdomen and pelvis were obtained from the lung bases to the proximal femurs. Images were reviewed in the axial, sagittal, and coronal planes. IV contrast was administered without complication. A dose lowering technique was utilized adhering to the principles of ALARA. CT DOSE: 454.08 mGy.cm FINDINGS: A right double-J ureteral stent is in place. The proximal aspect of the stent is within the right renal pelvis. The distal aspect is within the bladder. Mild right hydronephrosis has improved since CT of December 16, 2016. There is a small hyperdense subcapsular right renal fluid collection along the superior medial aspect of the right kidney with maximal thickness of 9 mm. There is no left hydronephrosis. No renal, ureteral or bladder calculi/fragments are identified. A 4 cm right hepatic lobe lesion is noted within segment 7. This is predominantly hypodense with peripheral foci of increased attenuation. This likely reflects a hemangioma. The spleen, adrenal glands, left kidney and pancreas are normal. There is no evidence for a bowel obstruction. No free air, pneumatosis or portal venous gas is present. There is moderate right periureteral infiltration. Skeletal structures are unremarkable. Appendix is normal. Left groin collaterals are incidentally noted. IMPRESSION: 1. Small right renal subcapsular hematoma, measuring 9 mm in thickness. Appropriately positioned right ureteral stent. Mild right hydronephrosis. No ureteral calculi/fragments. Moderate right periureteral infiltration. 2. 4 cm segment 7 hepatic lesion. This likely reflects a hemangioma however a follow-up nonemergent MRI of the liver could be obtained for confirmation. ----- KUB HISTORY: severe rt flank pain, eval stent malfunction COMPARISON: KUB 01/28/2017. FINDINGS: The bowel gas pattern is unremarkable. There are no dilated loops of small bowel to suggest an obstruction. The right ureteral stent appears in good position. The proximal portion appears to reside at the expected location of the right renal pelvis. No renal calculi identified. No left ureteral calculi. Multiple round calcifications in the deep pelvis are again noted. The majority of these favor phleboliths. A few these calcifications within the right deep pelvis overlie the distal right ureteral stent and could represent ureteral stones. No pneumoperitoneum or pneumatosis. IMPRESSION: 1. The right ureteral stent likely resides in good position. 2. Multiple round calcifications in the deep pelvis are again noted with the majority representing phleboliths. A few of these calcifications overlie the distal right ureteral stent and could represent ureteral stones. Laboratory Results 02/03/17 17:50 Red Blood Count 4.67, Mean Corpuscular Volume 88.2, Mean Corpuscular Hemoglobin 31.5, Mean Corpuscular Hemoglobin Concent 35.7, Mean Platelet Volume 9.0, Neutrophils (%) (Auto) 72.1, Lymphocytes (%) (Auto) 18.8, Monocytes (%) (Auto) 6.9, Eosinophils (%) (Auto) 1.6, Basophils (%) (Auto) 0.3, Neutrophils # (Auto) 7.66, Lymphocytes # (Auto) 2.00, Monocytes # (Auto) 0.73, Eosinophils # (Auto) 0.17, Basophils # (Auto) 0.03 02/03/17 17:50 Test 02/03/17 16:45 02/03/17 17:50 02/03/17 17:55 Urine Color RED-ORANGE Urine Appearance CLOUDY (CLEAR) Urine pH (4.5-7.5) Urine Specific [place] 1.027 (1.000-1.030) Urine Protein POS (NEG) Urine Glucose (UA) (NEG) Urine Ketones (NEG) Urine Occult Blood (NEG) Urine Nitrite (NEG) Urine Bilirubin (NEG) Urine Urobilinogen (NEG) Urine Leukocyte Esterase (NEG) Urine RBC >30 /hpf (0-4) Urine WBC >30 /hpf (0-5) Urine Epithelial Cells 5-10 /lpf (0-5) Urine Bacteria NEG (NEG) White Blood Count 10.62 K/uL (4.8-10.8) Red Blood Count 4.67 M/uL (4.2-5.4) Hemoglobin 14.7 g/dL (12.0-16.0) Hematocrit 41.2 % (37-47) Mean Corpuscular Volume 88.2 fL (80-100) Mean Corpuscular Hemoglobin 31.5 pg (25-34) Mean Corpuscular Hemoglobin Concent 35.7 g/dl (32-36) Platelet Count 262 K/uL (130-400) Mean Platelet Volume 9.0 fL (7.4-10.4) Neutrophils (%) (Auto) 72.1 % Lymphocytes (%) (Auto) 18.8 % Monocytes (%) (Auto) 6.9 % Eosinophils (%) (Auto) 1.6 % Basophils (%) (Auto) 0.3 % Neutrophils # (Auto) 7.66 K/uL (1.4-6.5) Lymphocytes # (Auto) 2.00 K/uL (1.2-3.4) Monocytes # (Auto) 0.73 K/uL (0.11-0.59) Eosinophils # (Auto) 0.17 K/uL (0-0.5) Basophils # (Auto) 0.03 K/uL (0-0.2) RDW Standard Deviation 38.6 fL (36.4-46.3) RDW Coefficient of Variation 12.1 % (11.5-14.5) Immature Granulocyte % (Auto) 0.3 % Immature Granulocyte # (Auto) 0.03 K/uL (0.00-0.02) Anion Gap 6.0 mmol/L (3-11) Estimated GFR () 98.0 Estimated GFR (Non- 84.6 BUN/Creatinine Ratio 15.4 (10-20) Calcium Level 9.1 mg/dl (8.5-10.1) Bedside Lactic Acid Venous 1.39 mmol/L (0.90-1.70) Medications Administered Medications (Trade) Dose Ordered Sig/Elly Route Start Time Stop Time Status Last Admin Dose Admin Sodium Chloride 1,000 ml @ 999 mls/hr Q1H1M STAT IV 02/03/17 17:06 02/03/17 18:06 DC 02/03/17 17:37 999 MLS/HR Ondansetron HCl (Zofran Inj) 4 mg NOW STAT IV 02/03/17 17:06 02/03/17 17:11 DC 02/03/17 17:37 4 MG Morphine Sulfate (MoRPHine SULFATE INJ) 6 mg NOW STAT IV 02/03/17 17:06 02/03/17 17:11 DC 02/03/17 17:39 6 MG Acetaminophen 100 ml @ 400 mls/hr NOW STAT IV 02/03/17 17:06 02/03/17 17:20 DC 02/03/17 18:00 400 MLS/HR Ketorolac Tromethamine (Toradol Inj) 15 mg NOW STAT IV 02/03/17 19:52 02/03/17 19:53 DC 02/03/17 20:14 15 MG Ciprofloxacin (Cipro Tab) 500 mg NOW STAT PO 02/03/17 20:33 02/03/17 20:34 DC 02/03/17 21:32 500 MG Medical Decision CC: Patient presenting with complaint of right flank pain Interpretation of Labs: No leukocytosis, no anemia, no significantly delayed abnormalities, normal renal function, normal liver enzymes and lipase. Possible UTI on UA, unable to fully evaluate due to large amount of blood up scaring evaluation. Urine culture pending. Differential Diagnosis: Includes, but not limited to, patient of the ureteral stent, abdominal perforation, ureteral obstruction, pyelonephritis, UTI, intra- abdominal infection or abscess, spasm related pain, among others. Medication Reconciliation: I attest that I have personally reviewed the patient' s current medication list. Vital signs review: I reviewed the patient's vital signs and interpret them as follows: T: Afebrile; BP: Hypertensive, resolved after pain treated; HR: Tachycardic; RR: Within normal limits; Pulse Ox: Within normal limits on room air. Blood pressure screening: The patient was found to have normal blood pressure on screening and does not require follow-up for repeat blood pressure check. Summary: Patient was evaluated at bedside, history of physical exam performed. Patient is alert and oriented, no acute distress, but does appear to be in significant pain. The right flank and right-sided abdomen is tender throughout. Positive right- sided CVA tenderness. Gross hematuria noted to urine sample. Orders were placed at bedside for labs, UA and culture, IV fluids, IV morphine/ Tylenol/Toradol to treat pain, KUB and CT abdomen/pelvis to evaluate for competitions of the ureteral stent and infection. Patient discussed with Dr. Moore, who agrees with my assessment and plan. Labs reviewed as above, no significant abnormalities, though there is concern for a UTI. Imaging reviewed, no acute abnormalities specifically no collection of infection , no hydronephrosis to indicate ureteral obstruction, no perforation. The ureteral stent appears to be in appropriate position. Patient reassessed multiple times throughout ED stay, she reports her pain is almost completely gone and she appears much more comfortable. Hypertension and tachycardia resolved after pain treated and IV fluids given. I spoke on the phone with Dr. Santos, urology, who believes her pain may be related to spasms because of the stent placement. He recommends placing the patient on Toradol for a few days, continuing her on Flomax, and increasing her ciprofloxacin for 4 more days to complete a 7 day course with concern of possible UTI. The patient is scheduled to have the ureteral stent removed on Thursday. I discussed all results with the patient and plan for discharge, as well as the treatment plan with medications, she verbalized understanding. I also reviewed return precautions with the patient, she verbalized understanding. Was discharged home in stable condition and ambulatory. Medication Reconcilliation Current Medication List: was personally reviewed by me Blood Pressure Screening Patient's blood pressure: Elevated blood pressure Blood pressure disposition: Elevated BP felt to be situational Impression Primary Impression: Right flank pain Departure Information Dispostion Home / Self-Care Condition GOOD Prescriptions Ketorolac Tromethamine (TORADOL) 10 Mg Tab 1 TAB PO Q6H Y for Pain for 3 Days, #12 TAB Prov: EugenioPujaNanette Sabas, EVAN 02/03/17 Tamsulosin Hcl (FLOMAX) 0.4 Mg Cap 0.4 MG PO DAILY for 7 Days, #7 CAP Prov: Nanette Becker, FL[employer] OPERATOR 02/03/17 Ciprofloxacin Hcl (CIPRO) 500 Mg Tab 500 MG PO BID for 4 Days, #8 TAB Prov: Nanette Becker, FLOWER [employer] OPERATOR 02/03/17 Referrals Diony Mckeon M.D. (PCP) Patient Instructions My [facility], Stents Ureteral Additional Instructions You have been treated in the Emergency Department today for your flank pain. You have received pain medicine in the emergency department which impairs your ability to operate a vehicle. It is illegal for you to drive after receiving these medicines. You have been prescribed Toradol to be used for pain control. This is an anti- inflammatory medication that should work well for your pain. You may continue to take the oxycodone as needed for breakthrough pain. Keep in mind that oxycodone is a narcotic medication and you should not drive or consume alcohol while on this medicine. This medicine should only be used for pain that cannot be controlled with the Toradol. You have been prescribed 4 more days of ciprofloxacin, which is an antibiotic to help treat for possible urinary tract infection. Take this as prescribed. You have been prescribed Flomax 0.4 mg to be taken ONCE daily for the next week until your stent comes out. This medicine has been prescribed as it can help relax the smooth muscles of the urinary tract and may help reduce some of your pain. Please call your urologist in the next 1-2 days to let them know how you're doing, or sooner if your symptoms are worsening. Keep all upcoming scheduled appointment with urology. Return to the Emergency Department if your symptoms persist despite the treatment plan outlined above or if you develop the following symptoms: Severe worsening pain, fevers or chills, persistent vomiting and unable to keep down fluids, or large amounts of blood in your urine.
[2017-02-03 18:45] LABS: URINE RBC >30 /hpf (0-4); URINE WBC >30 /hpf (0-5)
[2017-02-03] MEDS ORDERED: OPTIRAY 320 IV PRN (18:45)
[2017-02-03 18:46] LABS: URINE BACTERIA NEG (NEG)
--- NOTE | 2017-02-03 18:57 | DIAGNOSTIC IMAGING REPORT ---
KUB HISTORY: severe rt flank pain, eval stent malfunction COMPARISON: KUB 01/28/2017. FINDINGS: The bowel gas pattern is unremarkable. There are no dilated loops of small bowel to suggest an obstruction. The right ureteral stent appears in good position. The proximal portion appears to reside at the expected location of the right renal pelvis. No renal calculi identified. No left ureteral calculi. Multiple round calcifications in the deep pelvis are again noted. The majority of these favor phleboliths. A few these calcifications within the right deep pelvis overlie the distal right ureteral stent and could represent ureteral stones. No pneumoperitoneum or pneumatosis. IMPRESSION: 1. The right ureteral stent likely resides in good position. 2. Multiple round calcifications in the deep pelvis are again noted with the majority representing phleboliths. A few of these calcifications overlie the distal right ureteral stent and could represent ureteral stones. Electronically signed by: Melquiades Riddle M.D. 02/03/2017 6:56 PM Dictated Date/Time: 02/03/2017 6:53 PM
--- NOTE | 2017-02-03 19:16 | DIAGNOSTIC IMAGING REPORT ---
CT OF THE ABDOMEN AND PELVIS WITH CONTRAST CLINICAL HISTORY: Right flank pain. Ureteral stent placed 4 days ago. COMPARISON STUDY: CT of the abdomen and pelvis December 16, 2016 and KUB performed earlier today. TECHNIQUE: Following IV administration of 95 mL of Optiray-320, axial images of the abdomen and pelvis were obtained from the lung bases to the proximal femurs. Images were reviewed in the axial, sagittal, and coronal planes. IV contrast was administered without complication. A dose lowering technique was utilized adhering to the principles of ALARA. CT DOSE: 454.08 mGy.cm FINDINGS: A right double-J ureteral stent is in place. The proximal aspect of the stent is within the right renal pelvis. The distal aspect is within the bladder. Mild right hydronephrosis has improved since CT of December 16, 2016. There is a small hyperdense subcapsular right renal fluid collection along the superior medial aspect of the right kidney with maximal thickness of 9 mm. There is no left hydronephrosis. No renal, ureteral or bladder calculi/fragments are identified. A 4 cm right hepatic lobe lesion is noted within segment 7. This is predominantly hypodense with peripheral foci of increased attenuation. This likely reflects a hemangioma. The spleen, adrenal glands, left kidney and pancreas are normal. There is no evidence for a bowel obstruction. No free air, pneumatosis or portal venous gas is present. There is moderate right periureteral infiltration. Skeletal structures are unremarkable. Appendix is normal. Left groin collaterals are incidentally noted. IMPRESSION: 1. Small right renal subcapsular hematoma, measuring 9 mm in thickness. Appropriately positioned right ureteral stent. Mild right hydronephrosis. No ureteral calculi/fragments. Moderate right periureteral infiltration. 2. 4 cm segment 7 hepatic lesion. This likely reflects a hemangioma however a follow-up nonemergent MRI of the liver could be obtained for confirmation. Electronically signed by: Juan Zhong M.D. 02/03/2017 7:15 PM Dictated Date/Time: 02/03/2017 7:02 PM
[2017-02-03] MEDS ORDERED: KETOROLAC TROMETHAMINE 30 MG/ML VIAL IV STA (19:52)
[2017-02-03] MEDS ORDERED: TAMS0.4C38 PO (20:32)
[2017-02-03] MEDS ORDERED: CIPR-255 PO (20:32)
[2017-02-03] MEDS ORDERED: KETO10TA PO (20:32)
[2017-02-03] MEDS ORDERED: CIPROFLOXACIN 500 MG TAB PO STA (20:33)
[2017-02-03 21:36] VITALS: BP 112/80; PULSE 88; O2SAT 96
== END 2017-02-03 21:38 | disposition home or self-care (01) ==
LOC: C.EDB 15:52 → C.EDC 21:38
DX: R10.30 Lower abdominal pain, unspecified (principal); Z98.890 Other specified postprocedural states; Z87.01 Personal history of pneumonia (recurrent); E89.0 Postprocedural hypothyroidism; Z80.9 Family history of malignant neoplasm, unspecified; Z83.3 Family history of diabetes mellitus; Z82.49 Family history of ischemic heart disease and other diseases of the circulatory system; Z84.1 Family history of disorders of kidney and ureter; Z87.891 Personal history of nicotine dependence; Z79.3 Long term (current) use of hormonal contraceptives; Z79.899 Other long term (current) drug therapy

== ENCOUNTER → 2017-05-28 | Day surgery (SDC) | payer BC ==
[2017-05-06 10:53] VITALS: Ht 167.6 cm; Wt 84.1 kg
[~2017-05-28] VITALS: Ht 167.6 cm; Wt 84.1 kg
[~2017-05-28] MED LIST changes: +ATROPINE SULFATE 0.1 MG/ML 5ML SYR IV PRN; +BUPIVACAINE/EPINEPHRINE 0.5% MPF 1:200,000 30 ML VIAL ONE; +CEFAZOLIN 2000MG IV PUSH 10 ML IV SCH; -CIPR-255 PO; +DEXAMETHASONE SOD INJ 4 MG/ML VIAL ONE; +DiphenhydrAMINE HCL 50 MG/ML VIAL ONE; +EpHEDrine SULFATE INJ 50 MG/ML AMP IV PRN; +FENTANYL CITRATE INJ 50 MCG/1 ML 2 ML VIAL IV PRN; +FENTANYL CITRATE INJ 50 MCG/1 ML 2 ML VIAL ONE; +HYDR-5688 PO; +HYDROCODONE/ACETAMOPHEN 5/325MG TAB PO PRN; +LACTATED RINGER'S 1000ML 1,000 ML IV SCH; +LACTATED RINGER'S 1000ML 500 ML IV SCH; +LIDOCAINE HCL 2% 2 ML VIAL (20MG/ML) ONE; +METOCLOPRAMIDE HCL INJ 5 MG/ML 2 ML VIAL ONE; +MIDAZOLAM HCL 1 MG/ML 2ML VIAL ONE; +ONDANSETRON INJ 2 MG/ML 2 ML VIAL IV PRN; +ONDANSETRON INJ 2 MG/ML 2 ML VIAL ONE; -OXYC-57 PO; -PHEN-775 PO; +PROPOFOL IV EMULSION 10 MG/ML 20 ML VIAL IV ONE; +SCOPOLAMINE 1.5 MG TDSY TD ONE; +SODIUM CHLORIDE 0.9% 1000ML 1,000 ML IV SCH; -TAMS0.4C38 PO
--- NOTE | 2017-05-28 08:36 | [facility] Post Operative Brief Note ---
Immediate Operative Summary Operative Date May 28, 2017. Pre-Operative Diagnosis Left Knee Prepatellar Bursitis Post-Operative Diagnosis Same Procedure(s) Performed Left Knee Excision Prepatella Bursa Surgeon Dr. Bautista Medicaid Eligibility Specialist Surgeon(s) Mariela Benson PA-C Estimated Blood Loss 5cc Findings as above Specimens None Complication(s) None Disposition Recovery Room / PACU
--- NOTE | 2017-05-28 08:39 | Discharge Instructions-SurgCtr ---
Discharge Instructions Date of Service May 28, 2017. Visit Reason for Visit: Prepatellar Bursitis Discharge Discharge Diagnosis / Problem: SAME ABOVE Discharge Goals Goal(s): Decrease discomfort, Improve function Activity Recommendations Activity Limitations: as noted below Lifting Limitations: gradually increase as tolerated Exercise/Sports Limitations: gradually increase as tolerated Weightbearing Status: Left weightbearing (as tolerated) Anesthesia . Post Anesthesia Instructions: If you have had General Anesthesia or IV Sedation: * Do not drive today. * Resume driving when surgeon permits. * Do not make important decisions or sign legal documents today. * Call surgeon for: 1. Temperature elevations greater than 101 degrees F. 2. Uncontrollable pain. 3. Excessive bleeding. 4. Persistent nausea and vomiting. 5. Medication intolerance (nausea, vomiting or rash). * For nausea and vomiting use only clear liquids such as: tea, soda, bouillon until nausea subsides, then gradually increase diet as tolerated. * If you have any concerns or questions, call your surgeon's office. If physician is unavailable and it is an emergency, call 911 or go to the nearest emergency room. . Instructions / Follow-Up Instructions / Follow-Up MEDICATIONS: * Resume previous medications unless instructed otherwise by your surgeon. * Always take pain medication on a full stomach or with food to avoid upset stomach. * Do not drink alcohol or drive while taking narcotics. * Ibuprofen or Tylenol may be taken if narcotic not needed. SPECIAL CARE INSTRUCTIONS: __ None _X_ Keep extremity elevated and iced x 48 hours; apply ice 20-30 minutes 8-10 times/day. May remove at night. _X_ Crutches (IF YOU HAVE THEM, THEY ARE NOT NEEDED) X_ May discard when able __ Brace/Post-op shoe __ 24 hrs/day __ Remove at night _X_ Dressing __ Maintain until seen in office, may shower with plastic over site _X_ Remove dressings in 24-48 hours and then may shower _X_ Cover incisions with band-aids after showering __ Do not remove steri-strips NO KNEELING ON KNEE UNTIL SEEN FOR FOLLOW-UP Call physician if chills or temperature rises above 102 degrees or pain unrelieved by prescribed pain medications. Office [phone] Diet Recommendations Home Diet: no limitations Fluid Restriction: None Procedures Procedures Performed: Left Knee Excision Prepatella Bursa Pending Studies Studies pending at discharge: yes List of pending studies: LEFT KNEE SYNOVIAL CYST Work Instructions Return To Work: after follow-up Medical Emergencies . Who to Call and When: Medical Emergencies: If at any time you feel your situation is an emergency, please call 911 immediately. . Non-Emergent Contact Non-Emergency issues call your: Primary Care Provider Call Non-Emergent contact if: you have a fever, temperature is above 101.5 . . "Provider Documentation" section prepared by John Benson. .
--- NOTE | 2017-05-28 08:51 | OPERATIVE REPORT ---
DATE OF OPERATION: 05/28/2017 PREOPERATIVE DIAGNOSIS: Mass of the left knee. POSTOPERATIVE DIAGNOSIS: Same. PROCEDURE: Open excision of the mass on the left knee. SURGEON: Rakan Bautista DO. CHAIN TESTING MACHINE OPERATOR: John Benson PA-C, whose assistance was necessary for retraction and closure. ANESTHESIA: General. COMPLICATIONS: None. CONDITION: Stable to PACU. INDICATIONS: Mona is a pleasant 47-year-old female who presented to my office with a golf ball sized mass just lateral to the patellar tendon of her left knee. It did not look like a standard prepatellar bursitis, it also looked little large to be a synovial cyst and do not feel like a ganglion or meniscal cyst. She had a drain twice and it returned. She also had it traumatically rupture and it returned. She elected to undergo open excision. OPERATION AND FINDINGS: On 05/28/2017, she arrived at [facility] for the above procedure. She was seen in the preoperative holding area and the operative extremity was identified and signed. She was given a preoperative antibiotic and taken back to the operating room, laid on the table in supine position and put under general anesthesia. The left knee was prepped and draped in sterile fashion. Time-out was done and the patient and operative extremity was properly identified. A longitudinal incision was made directly over the golf ball size mass. Dissection was taken down to the encapsulated structure. Care was taken to completely release the entire mass. I was able to get the entire mass excised without puncturing. I placed the mass on the back table. It was the size of a golf ball. I then punctured the mass and there was a lot of watery type synovial fluid that came out. I am still unsure if this is just a well encapsulated chronic prepatellar bursitis or if this is a synovial cyst. I did sent it to pathology for evaluation. The wound was then irrigated and closed with 4-0 nylon suture. She was then placed in a soft dressing, extubated, transferred to a litter and taken to the postanesthesia care unit in stable condition. She tolerated the procedure well. I attest to the content of the Intraoperative Record and any orders documented therein. Any exception s are noted below.
[2017-05-28 09:59] VITALS: TEMP 36.6
[2017-05-28 10:22] VITALS: BP 126/85; PULSE 97; O2SAT 97
--- NOTE | 2017-05-28 10:28 | Anesthesia Progress Nt - [facility] ---
Anesthesia Post Op Note Date & Time May 28, 2017 at 10:28 Vital Signs Pain Intensity: 1 Vital Signs Past 12 Hours Date Time Temp Pulse Resp B/P (MAP) Pulse Ox O2 Delivery O2 Flow Rate FiO2 05/28/17 10:22 97 16 126/85 (99) 97 Room Air 05/28/17 09:59 36.6 102 126/71 (89) 98 Room Air 05/28/17 09:43 36.9 102 16 149/88 97 Room Air 05/28/17 09:40 109 32 100 05/28/17 09:40 111 32 05/28/17 09:36 148/95 05/28/17 09:35 105 2 05/28/17 09:35 106 2 99 05/28/17 09:31 124/89 05/28/17 09:30 105 5 99 05/28/17 09:30 105 5 05/28/17 09:26 128/90 05/28/17 09:25 105 9 05/28/17 09:25 106 9 100 05/28/17 09:21 137/87 05/28/17 09:20 106 7 05/28/17 09:20 106 7 97 05/28/17 09:16 151/90 05/28/17 09:15 112 26 100 05/28/17 09:15 111 26 05/28/17 09:11 142/85 05/28/17 09:10 104 7 05/28/17 09:10 103 7 100 05/28/17 09:06 138/88 05/28/17 09:05 122 25 100 05/28/17 09:05 122 25 05/28/17 09:01 142/86 05/28/17 09:00 108 20 100 05/28/17 09:00 108 20 05/28/17 08:56 159/85 05/28/17 08:55 112 20 100 05/28/17 08:55 113 20 05/28/17 08:51 143/88 05/28/17 08:50 115 21 97 05/28/17 08:50 115 21 05/28/17 08:49 111 19 05/28/17 08:49 110 19 97 05/28/17 08:49 110 19 97 05/28/17 08:49 111 19 05/28/17 08:46 140/80 05/28/17 08:46 140/80 05/28/17 08:44 108 18 97 05/28/17 08:44 110 18 05/28/17 08:44 108 18 97 05/28/17 08:44 110 18 05/28/17 08:41 109/70 05/28/17 08:41 109/70 05/28/17 08:40 118/72 05/28/17 08:40 118/72 05/28/17 08:39 37.5 109 12 109/70 96 Mask 05/28/17 07:08 36.9 96 16 153/102 (119) 98 Room Air Notes Mental Status: alert / awake / arousable, participated in evaluation Pt Amnestic to Procedure: Yes Nausea / Vomiting: adequately controlled Pain: adequately controlled Airway Patency, RR, SpO2: stable & adequate BP & HR: stable & adequate Hydration State: stable & adequate Anesthetic Complications: no major complications apparent
== END | disposition home or self-care (01) ==
LOC: X.SURG 06:52
PROVIDERS: ATTEND Orthopaedic Surgery
DX: M71.38 Other bursal cyst, other site (principal); E03.9 Hypothyroidism, unspecified; Z79.899 Other long term (current) drug therapy; Z87.891 Personal history of nicotine dependence

== ENCOUNTER → 2017-08-06 | Outpatient (CLI) | payer OTHER ==
[~2017-08-06] MED LIST changes: -ATROPINE SULFATE 0.1 MG/ML 5ML SYR IV PRN; -BUPIVACAINE/EPINEPHRINE 0.5% MPF 1:200,000 30 ML VIAL ONE; -CEFAZOLIN 2000MG IV PUSH 10 ML IV SCH; -DEXAMETHASONE SOD INJ 4 MG/ML VIAL ONE; -DiphenhydrAMINE HCL 50 MG/ML VIAL ONE; -EpHEDrine SULFATE INJ 50 MG/ML AMP IV PRN; -FENTANYL CITRATE INJ 50 MCG/1 ML 2 ML VIAL IV PRN; -FENTANYL CITRATE INJ 50 MCG/1 ML 2 ML VIAL ONE; -HYDROCODONE/ACETAMOPHEN 5/325MG TAB PO PRN; -LACTATED RINGER'S 1000ML 1,000 ML IV SCH; -LACTATED RINGER'S 1000ML 500 ML IV SCH; -LIDOCAINE HCL 2% 2 ML VIAL (20MG/ML) ONE; -METOCLOPRAMIDE HCL INJ 5 MG/ML 2 ML VIAL ONE; -MIDAZOLAM HCL 1 MG/ML 2ML VIAL ONE; -ONDANSETRON INJ 2 MG/ML 2 ML VIAL IV PRN; -ONDANSETRON INJ 2 MG/ML 2 ML VIAL ONE; -PROPOFOL IV EMULSION 10 MG/ML 20 ML VIAL IV ONE; -SCOPOLAMINE 1.5 MG TDSY TD ONE; -SODIUM CHLORIDE 0.9% 1000ML 1,000 ML IV SCH
== END | disposition home or self-care (01) ==
LOC: C.LABPVFM 12:01
PROVIDERS: ATTEND Family Medicine
DX: E03.9 Hypothyroidism, unspecified (principal)

== ENCOUNTER → 2017-11-04 | Outpatient (CLI) | payer OTHER ==
--- NOTE | 2017-11-05 14:17 | MAMMOGRAPHY REPORT ---
BILATERAL DIGITAL SCREENING MAMMOGRAM TOMOSYNTHESIS WITH CAD: 11/04/2017 CLINICAL HISTORY: Routine screening. Patient has no complaints. TECHNIQUE: Breast tomosynthesis in addition to standard 2D mammography was performed. Current study was also evaluated with a Computer Aided Detection (CAD) system. COMPARISON: Comparison is made to exams dated: 05/04/2015 mammogram and 04/06/2013 mammogram - [facility]. BREAST COMPOSITION: There are scattered areas of fibroglandular density in both breasts. FINDINGS: No suspicious masses, calcifications, or areas of architectural distortion are noted in ei ther breast. There has been no significant interval change compared to prior exams. Bilateral asymme tries are stable compared to prior exams. IMPRESSION: ACR BI-RADS CATEGORY 2: BENIGN There is no mammographic evidence of malignancy. A 1 year screening mammogram is recommended. The pa tient will receive written notification of the results. Approximately 10% of breast cancers are not detected with mammography. A negative mammographic report should not delay biopsy if a clinically suggestive mass is present. Pat Tsai M.D. ah/:11/04/2017 16:40:51 Paper Sales Representative: Lesia PAINTER(Chilo)(M), [facility] letter sent: Normal 1/2 BI-RADS Code: ACR BI-RADS Category 2: Benign
== END | disposition home or self-care (01) ==
LOC: C.MAMM 15:59
PROVIDERS: ATTEND Obstetrics & Gynecology
DX: Z12.31 Encounter for screening mammogram for malignant neoplasm of breast (principal)

== ENCOUNTER 2018-06-19 23:13 | Inpatient (IN) ==
[2018-06-19] MEDS ORDERED: SODIUM CHLORIDE 0.9% 1000ML 1,000 ML IV ONE (23:53)
[2018-06-20 00:06] LABS: Basophils # (auto) 0.02 K/uL (0-0.2); Basophils % (auto) 0.2 %; Eosinophils # (auto) 0.14 K/uL (0-0.5); Eosinophils % (auto) 1.3 %; Hematocrit (blood only) 41.3 % (37-47); Hemoglobin 14.4 g/dL (12.0-16.0); Immature Granulocytes # (auto) 0.03 K/uL (0.00-0.02); Immature Granulocytes % (auto) 0.3 %; Lymphocytes # (auto) 2.26 K/uL (1.2-3.4); Lymphocytes % (auto) 20.6 %; Mean Corpuscular Hgb Conc 34.9 g/dL (32-36); Mean Corpuscular Volume 88.8 fL (80-100); Mean Platelet Volume 9.5 fL (7.4-10.4); Monocytes # (auto) 0.81 K/uL (0.11-0.59); Monocytes % (auto) 7.4 %; Neutrophils # (auto) 7.72 K/uL (1.4-6.5); Neutrophils % (auto) 70.2 %; Platelet Count 258 K/uL (130-400); RDW Coefficient of Variation 12.3 % (11.5-14.5); RDW Standard Deviation 39.3 fL (36.4-46.3); Red Blood Count 4.65 M/uL (4.2-5.4); White Blood Count 10.98 K/uL (4.8-10.8)
[2018-06-20 00:10] LABS: Appearance Urine Clear (Clear); Bilirubin Urine Negative (Negative); Color Urine Dark Yellow; Glucose Urine UA Negative (Negative); Ketones Urine Trace (Negative); Leukocyte Esterase Urine Negative (Negative); Nitrite Urine Negative (Negative); Protein Urine Negative (Negative); Specific Gravity Urine 1.025 (1.000-1.030); Urobilinogen Urine Negative (Negative)
[2018-06-20 00:11] LABS: Pregnancy Test, Urine Negative (Negative)
[2018-06-20 00:24] LABS: Albumin Level 3.5 gm/dl (3.4-5.0); BUN Creatinine Ratio 12.9 (10-20); Bilirubin Direct 0.1 mg/dl (0-0.2); Calcium 8.9 mg/dl (8.5-10.1); Creatinine Clr Calc Pharmacy 93.2 ml/min; Est GFR (African American) 96.6; Est GFR (Non-African American) 83.4; Potassium 3.6 mmol/L (3.5-5.1)
[2018-06-20 00:27] LABS: Bilirubin,Total 0.7 mg/dl (0.2-1); Total Protein 7.6 gm/dl (6.4-8.2)
[2018-06-20] MEDS ORDERED: IOVERSOL 100ml IV PRN (01:13)
[2018-06-20] MEDS ORDERED: cefOXitin 2,000 MG/60 ML BAG IV STA (01:44)
[2018-06-20] MEDS ORDERED: MoRPHine SULFATE 2 MG/ML CARP IV PRN ×2 (03:20→14:26)
[2018-06-20] MEDS: LACTATED RINGER'S 1,000 ML IV SCH ×3 (04:10→21:05)
--- NOTE | 2018-06-20 05:57 | Emergency Department Note ---
Entered by Nick Young acting as a scribe for Shashank Yarborugh MD ED Provider Note Name: Mona Casillas Age: 48 Arrives Via: Private vehicle Informant: Patient CC: Abdominal pain HPI: The patient is a 48 year old female who presents to the ED with her via private vehicle due to complaints of central abdominal pain that began earlier today while taking down holiday decorations. Patient describes the pain as like getting kicked in the gut and a bloaty feeling. She adds that the pain also radiates to the right side of her abdomen. She adds that she has also been getting intermittent sharp pains up into her rib cage. Patient states she also has nausea and chills. She adds that she has not taken any medications for her symptoms. Patients past medical history includes kidney stones but she states her current symptoms feel different. She adds that she also had two c-sections. She adds she still has her gallbladder and appendix. Patients family history includes kidney stones and she denies a family history of gallbladder problems. 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 Patient denies back pain, hematuria, urinary burning, fevers, leg swelling, SOB , diarrhea, and any recent chemical exposure. She adds that she stopped smoking 15 years ago. ROS: See above HPI for pertinent positives & negatives. A total of 10 systems reviewed and were otherwise negative. Past Medical History: Kidney stones and Past Surgical History: Partial thyroidectomy Family History: Kidney stones Social History: Lives with family Home Medications: None Allergies None Physical: Vitals: BP = 143/89 P = 86 Resp = 18 Temp = 97.7 O2 Sat = 99 Delivery = Room Air Exam: GENERAL: Patient is uncomfortable appearing and in mild distress. EYES: No scleral icterus, unremarkable pupils. ENT: Mucous membranes moist, no nasal congestion. NECK: No masses appreciated, no meningismus, trachea is midline. RESPIRATORY: No dyspnea. Clear to auscultation and equal bilaterally. No wheeze , no rhonchi. CARDIOVASCULAR: Regular rate and rhythm. No murmurs, rubs, gallops appreciated. GASTROINTESTINAL: Abdomen soft, moderate RUQ tenderness to palpation, mild RLQ tenderness to palpation, no peritonitis. Bowel sounds positive. No masses appreciated. BACK: No midline tenderness, no CVA tenderness EXTREMITIES: Normal motion all extremities, no cyanosis, no edema. NEUROLOGIC: Alert and oriented, no acute motor or sensory deficits, no focal weakness, cranial nerves grossly intact. SKIN: No rash, no jaundice, no diaphoresis. ED Course: Prior Medical Record, Triage/Nursing Notes, Medications, Allergies reviewed by Me Vital Signs: reviewed and remarkable for mild HTN Labs: Reviewed and remarkable for MIld WBC elevation Interventions: Saline Lock, Mefoxin 2 G IV Imaging: [facility] Radiologist interpretation reviewed by me: "US GALLBLADDER: Findings: The liver is slightly increased in echotexture. No focal mass lesions noted. 6 mm density noted in the gallbladder lumen which may represent a gallbladder polyp. This is non-shadowing. No gallbladder wall thickening. No pericholecystic fluid Common duct is normal measuring 4 mm. Right kidney is unremarkable. No hydronephrosis, no evidence for renal calculi. Impression: unremarkable ultrasound right upper quadrant:" Radiologist: Parmjit Orta MD "CT ABDOMEN & PELVIS With Contrast: COMPARISON: 02/03/17 FINDINGS: The lung bases are clear. The liver and spleen are unchanged compared to prior study the gallbladder, bile ducts and pancreas are normal. The adrenal gland are unremarkable. The kidneys are normal in size and contour. No lesion or hydronephrosis. The appendix is enlarged measuring over 9 mm with subtle inflammatory changes suggestive of appendicitis. No evidence for perforation no evidence for abscess. The aorta is normal caliber. No adenopathy or extraluminal air. The osseous structures are normal IMPRESSION: Enlarged appendix measuring 9 mm with periappendiceal inflammatory changes. No evidence of perforation or abscess collection" Radiologist: Parmjit Orta MD EKG: None Consults: 0145: I reviewed the patient's case with Dr. Bonds. He will evaluate the patient for further management. Times: 2344: Past medical records reviewed. The patient was evaluated in room B5 , and a complete history and physical examination were performed. 0056: I reevaluated the patient. She is complaining of worsening chills. Nurse is going to repeat temperature on the patient. I discussed the pros and cons of a CT scan. Patient would like to proceed with the CT scan. 0143: I reviewed the patient's films with [facility]. 0150: I updated the patient on her findings and treatment plan. 0203: Upon reevaluation, the patient will be further evaluated. I updated the patient on her findings and treatment plan. Patient is agreeable to the treatment plan. Patient will be assessed for further evaluation. Blood pressure: Normal. No Referral necessary Disposition: Admit to Gen Surg. Prescriptions: none. Differentials: Cholecystitis, appendicitis, gastroenteritis, pancreatitis, liver disease, renal issue, amongst other pathologies. Medical Decision Making: Pleasant 48 yr old female with 1 day abdominal pain, initially periumbilical then moving to right mid abdomen. Moderate RUQ TTP on evaluation and mild RLQ TTP. While story concerning for appy felt rule out GB issues with US first which was notable for just a small polyp in GB. This lead to CT given persistent pain, wbc elevation, exam and story. CT reveals 9mm appendicitis without perforation. Labs otherwise looking good. Kept NPO. Discussed with Gen Surg who advised IV abx and they will admit. Patient stable without peritonitis on repeat examinations. Impression: Appendicitis Shashank Yarbrough MD The scribe's documentation has been prepared under my direction and personally reviewed by me in its entirety. I confirm that the note above accurately reflects all work, treatment, procedures, and medical decision making performed by me. Impression & Plan Appendicitis Past Med/Surg History Medical History Hypothyroidism Kidney stones Surgical History History of section History of lithotripsy History of repair of rotator cuff Social History Current Living Situation: Family Current Living Situation Comment: with Fiance and 2 sons ages 19 and 15 Other Information That Helps Us Care for You: No Feels Safe at Home: Yes Safety Concerns: Feels Safe At This Time Smoking Status: Former smoker Do You Dip or Chew Tobacco: No Hx Alcohol Use: Yes Alcohol type: wine Alcohol Intake Frequency: holidays/ special occasions only Hx Substance Use: No Beliefs That Will Affect Care: None Preferred Language: Lithuanian Communication Ability: Effective Pitch Worker Required: No Results & Data Vital Signs Vital Signs - 24 hr 06/19/18 23:22 06/20/18 00:39 06/20/18 01:01 Temperature 37.0 C 36.5 C Temperature Source Oral Oral Sepsis Recent Fever Within 48 Hours No Sepsis Action Taken by Nursing No Action Required Pulse Rate 103 H Pulse Rate [Left] 86 Pulse Rate [Right Finger] Pulse Rhythm [Left] Regular Respiratory Rate 20 18 Respiratory Effort / Characteristics Non-Labored Respiratory Depth Normal Respiratory Pattern Blood Pressure 158/94 H Blood Pressure [Left Arm] 143/89 H Blood Pressure Mean 115 Blood Pressure Mean [Left Arm] 107 Pulse Oximetry 100 99 Oxygen Delivery Method Room Air 06/20/18 03:06 06/20/18 03:37 Temperature 36.7 C Temperature Source Oral Sepsis Recent Fever Within 48 Hours Sepsis Action Taken by Nursing Pulse Rate 78 Pulse Rate [Left] Pulse Rate [Right Finger] 90 Pulse Rhythm [Left] Respiratory Rate 20 16 Respiratory Effort / Characteristics Non-Labored Respiratory Depth Normal Respiratory Pattern Regular Blood Pressure 130/90 Blood Pressure [Left Arm] 149/101 H Blood Pressure Mean Blood Pressure Mean [Left Arm] 117 Pulse Oximetry 97 98 Oxygen Delivery Method Room Air Room Air Laboratory Data Result diagrams: 06/19/18 23:45 06/19/18 23:45 Lab Results 06/19/18 06/19/18 06/19/18 Range/Units 23:45 23:45 23:45 WBC 10.98 H (4.8-10.8) K/uL RBC 4.65 (4.2-5.4) M/uL Hgb 14.4 (12.0-16.0) g/dL Hct 41.3 (37-47) % MCV 88.8 (80-100) fL MCH 31.0 (25-34) pg MCHC 34.9 (32-36) g/dL RDW Std Deviation 39.3 (36.4-46.3) fL RDW Coeff of Jose Rafael 12.3 (11.5-14.5) % Plt Count 258 (130-400) K/uL MPV 9.5 (7.4-10.4) fL Immature Gran % (Auto) 0.3 % Neut % (Auto) 70.2 % Lymph % (Auto) 20.6 % Lewis % (Auto) 7.4 % Eos % (Auto) 1.3 % Baso % (Auto) 0.2 % Immature Gran # (Auto) 0.03 H (0.00-0.02) K/uL Neut # (Auto) 7.72 H (1.4-6.5) K/uL Lymph # (Auto) 2.26 (1.2-3.4) K/uL Lewis # (Auto) 0.81 H (0.11-0.59) K/uL Eos # (Auto) 0.14 (0-0.5) K/uL Baso # (Auto) 0.02 (0-0.2) K/uL Sodium 137 (136-145) mmol/L Potassium 3.6 (3.5-5.1) mmol/L Chloride 105 (98-107) mmol/L Carbon Dioxide 25 (21-32) mmol/L Anion Gap 7.0 (3-11) BUN 11 (7-18) mg/dl Creatinine 0.83 (0.6-1.2) mg/dl Est Cr Clr Drug Dosing 93.2 ml/min Est GFR ( Amer) 96.6 Est GFR (Non-Af Amer) 83.4 BUN/Creatinine Ratio 12.9 (10-20) Glucose 106 H (70-99) mg/dl Calcium 8.9 (8.5-10.1) mg/dl Total Bilirubin 0.7 (0.2-1) mg/dl Direct Bilirubin 0.1 (0-0.2) mg/dl AST 14 L (15-37) U/L ALT 24 (12-78) U/L Alkaline Phosphatase 75 (45-117) U/L Total Protein 7.6 (6.4-8.2) gm/dl Albumin 3.5 (3.4-5.0) gm/dl Urine Color Dark Yellow Urine Appearance Clear (Clear) Urine pH 5.0 (4.5-7.5) Ur Specific Pisek 1.025 (1.000-1.030) Urine Protein Negative (Negative) Urine Glucose (UA) Negative (Negative) Urine Ketones Trace H (Negative) Urine Blood Negative (Negative) Urine Nitrite Negative (Negative) Urine Bilirubin Negative (Negative) Urine Urobilinogen Negative (Negative) Ur Leukocyte Esterase Negative (Negative) Urine Test (Negative) 06/19/18 Range/Units 23:45 WBC (4.8-10.8) K/uL RBC (4.2-5.4) M/uL Hgb (12.0-16.0) g/dL Hct (37-47) % MCV (80-100) fL MCH (25-34) pg MCHC (32-36) g/dL RDW Std Deviation (36.4-46.3) fL RDW Coeff of Jose Rafael (11.5-14.5) % Plt Count (130-400) K/uL MPV (7.4-10.4) fL Immature Gran % (Auto) % Neut % (Auto) % Lymph % (Auto) % Lewis % (Auto) % Eos % (Auto) % Baso % (Auto) % Immature Gran # (Auto) (0.00-0.02) K/uL Neut # (Auto) (1.4-6.5) K/uL Lymph # (Auto) (1.2-3.4) K/uL Lewis # (Auto) (0.11-0.59) K/uL Eos # (Auto) (0-0.5) K/uL Baso # (Auto) (0-0.2) K/uL Sodium (136-145) mmol/L Potassium (3.5-5.1) mmol/L Chloride (98-107) mmol/L Carbon Dioxide (21-32) mmol/L Anion Gap (3-11) BUN (7-18) mg/dl Creatinine (0.6-1.2) mg/dl Est Cr Clr Drug Dosing ml/min Est GFR ( Amer) Est GFR (Non-Af Amer) BUN/Creatinine Ratio (10-20) Glucose (70-99) mg/dl Calcium (8.5-10.1) mg/dl Total Bilirubin (0.2-1) mg/dl Direct Bilirubin (0-0.2) mg/dl AST (15-37) U/L ALT (12-78) U/L Alkaline Phosphatase (45-117) U/L Total Protein (6.4-8.2) gm/dl Albumin (3.4-5.0) gm/dl Urine Color Urine Appearance (Clear) Urine pH (4.5-7.5) Ur Specific Pisek (1.000-1.030) Urine Protein (Negative) Urine Glucose (UA) (Negative) Urine Ketones (Negative) Urine Blood (Negative) Urine Nitrite (Negative) Urine Bilirubin (Negative) Urine Urobilinogen (Negative) Ur Leukocyte Esterase (Negative) Urine Test Negative (Negative) Administered Medications Lactated Ringer's (Lr) 1,000 mls @ 125 mls/hr IV .Q8H ELEUTERIO Stop: 07/20/18 03:19 Last Admin: 06/20/18 04:10 Dose: 125 mls/hr Discontinued Medications Sodium Chloride (Nss 1000ml) 1,000 mls @ 999 mls/hr IV .Q1H1M ONE Stop: 06/20/18 00:53 Last Infusion: 06/20/18 01:07 Dose: 0 mls/hr Admin: 06/20/18 00:07 Dose: 999 mls/hr Cefoxitin Sodium (Mefoxin) 2,000 mg in 60 mls @ 100 mls/hr IV NOW STA Stop: 06/20/18 02:19 Last Infusion: 06/20/18 02:47 Dose: 0 mls/hr Admin: 06/20/18 02:04 Dose: 100 mls/hr Ioversol (Optiray 320 100ml) 90 ml IV ONCE PRN PRN Reason: Interaction Checking Stop: 06/24/18 01:12 Last Admin: 06/20/18 01:13 Dose: 1 ml Discharge Plan Visit Data *Final* Discharge Date/Time: 06/20/18 03:06 Chief Complaint: Flank Pain Stated Complaint: RIGHT SIDE SUDDEN PAIN ED Provider: Shashank Yarbrough Discharge Problem: Appendicitis Patient Disposition: Admitted As Inpatient Discharge Instructions Interventions: ED Discharge Assessment Last Done: 06/20/18 03:06 The scribe's documentation has been prepared under my direction and personally reviewed by me in its entirety. I confirm that the note above accurately reflects all work, treatment, procedures, and medical decision making performed by me.
--- NOTE | 2018-06-20 06:18 | History & Physical Report ---
Date of Service June 20, 2018 Assessment & Plan (1) Appendicitis: discussed options/risks ( bleeding/infection/dvt/pe/mi/cva/leaks/injury to other organs etc...) questions answered. will proceed with lap /poss open appy NAM History of Present Illness Primary Care Provider: Ozzy Segal MD pt began having pain at 1 pm yesterday. worsened throughout the day and localized to RLQ. Allergies Allergy/AdvReac Type Severity Reaction Status Date / Time meclizine AdvReac Unknown migraine Verified 06/19/18 23:44 Home Medications Home Medications Medication Instructions Recorded Confirmed Type cholecalciferol (vitamin D3) 6,000 unit PO DAILY 06/19/18 06/19/18 History [Vitamin D3] drospirenone-ethinyl estradiol 1 tab PO DAILY 06/19/18 06/19/18 History levothyroxine [Synthroid] 88 mcg PO DAILY 06/19/18 06/19/18 History multivitamin 1 tab PO DAILY 06/19/18 06/19/18 History Past Med/Surg History Medical History Hypothyroidism Kidney stones Surgical History History of section History of lithotripsy History of repair of rotator cuff Social History Current Living Situation: Family Current Living Situation Comment: with Fiance and 2 sons ages 19 and 15 Other Information That Helps Us Care for You: No Feels Safe at Home: Yes Safety Concerns: Feels Safe At This Time Smoking Status: Former smoker Do You Dip or Chew Tobacco: No Hx Alcohol Use: Yes Alcohol type: wine Alcohol Intake Frequency: holidays/ special occasions only Hx Substance Use: No Beliefs That Will Affect Care: None Preferred Language: Kyrgyz Communication Ability: Effective Supervisor Cook House Required: No Review of Systems All systems reviewed & are unremarkable except as noted in HPI & below Physical Exam 2 Vital Signs (Past 24 Hours): Last Vital Signs Temp 36.7 C 06/20/18 03:37 Pulse 90 06/20/18 03:37 Resp 16 06/20/18 03:37 BP 149/101 H 06/20/18 03:37 Pulse Ox 98 06/20/18 03:37 Physical Exam: alert/oriented. NAD Heent: Pearla. eomi Heart: RRR Lungs: CTA b/l Abdomen: soft. +RLQ ttp. +guarding ext: no c/c/e _ (1) Appendicitis Acute appendicitis type: Appendicitis abscess presence: Appendicitis gangrene presence: Appendicitis perforation presence: Appendicitis type:
[2018-06-20] MEDS ORDERED: ePHEDrine sulfate 50 MG/ML AMP IV PRN (07:49)
[2018-06-20] MEDS ORDERED: ATROPINE SULFATE 0.1 MG/ML 10ML SYR IV PRN (07:49)
[2018-06-20] MEDS ORDERED: fentaNYL citrate 100 MCG/2 ML VIAL IV PRN (07:49)
[2018-06-20] MEDS ORDERED: ONDANSETRON INJ 2 MG/ML 2 ML VIAL IV PRN (07:49)
[2018-06-20] MEDS ORDERED: HYDROmorphone INJ 1 MG/ML SYRINGE IV PRN (07:49)
--- NOTE | 2018-06-20 07:49 | Anesthesiology Consultation ---
Date of Service June 20, 2018 Assessment & Plan (1) Encounter for pre-operative examination: Chart Review Chart Review: Acceptable Risk for Surgery NPO Date Last Intake of Fluids: 06/19/18 Time Last Intake of Fluids: 21:00 Date Last Intake of Solids: 06/19/18 Time Last Intake of Solids: 14:00 History Surgery Operation Date: 06/20/18 09:00 Proposed Procedures p Laparoscopic Appendectomy - Fermín Bonds DO Height/Weight Height: 5 ft 6 in Weight: 92.3 kg Allergies Allergy/AdvReac Type Severity Reaction Status Date / Time meclizine AdvReac Unknown migraine Verified 06/19/18 23:44 Medications Home Medications Medication Instructions Recorded Confirmed Last Taken cholecalciferol (vitamin D3) 6,000 unit PO DAILY 06/19/18 06/19/18 Unknown [Vitamin D3] drospirenone-ethinyl estradiol 1 tab PO DAILY 06/19/18 06/19/18 Unknown levothyroxine [Synthroid] 88 mcg PO DAILY 06/19/18 06/19/18 Unknown multivitamin 1 tab PO DAILY 06/19/18 06/19/18 Unknown Active Medications Generic Name Dose Route Start Last Admin Trade Name Freq PRN Reason Stop Dose Admin Lactated Ringer's 1,000 mls @ 125 mls/hr 06/20/18 03:20 06/20/18 04:10 Lr IV 07/20/18 03:19 125 mls/hr .Q8H ELEUTERIO Administration Past Medical History Medical History Hypothyroidism Kidney stones Past Surgical History Surgical History History of section History of lithotripsy History of repair of rotator cuff Social History Smoking Status: Former smoker Do You Dip or Chew Tobacco: No Hx Alcohol Use: Yes Alcohol type: wine alcohol intake frequency: holidays/special occasions only Hx Substance Use: No substance use type: does not use Physical Exam Vital Signs Last Vital Signs Temp 36.9 C 06/20/18 07:05 Pulse 99 H 06/20/18 07:05 Resp 18 06/20/18 07:05 BP 122/75 06/20/18 07:05 Pulse Ox 99 06/20/18 07:05 Testing Laboratory Results 06/19/18 23:45 06/19/18 23:45 Urine Color Dark Yellow 06/19/18 23:45 Urine Appearance Clear (Clear) 06/19/18 23:45 Urine pH 5.0 (4.5-7.5) 06/19/18 23:45 Ur Specific [place] 1.025 (1.000-1.030) 06/19/18 23:45 Urine Protein Negative (Negative) 06/19/18 23:45 Urine Glucose (UA) Negative (Negative) 06/19/18 23:45 Urine Ketones Trace (Negative) H 06/19/18 23:45 Urine Nitrite Negative (Negative) 06/19/18 23:45 Ur Leukocyte Esterase Negative (Negative) 06/19/18 23:45 Urine Test Negative (Negative) 06/19/18 23:45 06/19/18 23:45 Urine Test Negative
--- NOTE | 2018-06-20 07:58 | CT Scan Report ---
CT SCAN OF THE ABDOMEN AND PELVIS WITH IV CONTRAST CLINICAL HISTORY: Right-sided abdominal pain. Nausea. COMPARISON STUDY: Abdominal CT dated 12/16/2016. TECHNIQUE: Following the IV administration of 90 cc of Optiray 320, CT scan of the abdomen and pelvi s is performed from the lung bases to the proximal femora. Images are reviewed in the axial, sagittal , and coronal planes. IV contrast was administered without complication. A dose lowering technique wa s utilized adhering to the principles of ALARA. CT DOSE: 606.24 mGy.cm FINDINGS: Lung bases: The heart is normal in size and without pericardial effusion. The lung bases are clear no ting mild dependent atelectasis. Liver: The contrast-enhanced liver is normal in size, contour, and attenuation. There is no intrahepa tic biliary ductal dilatation. The hepatic veins and portal veins are patent. A 4.0 cm low-attenuatio n lesion in the posterior right hepatic lobe is seen on image #71. Although incompletely characterize d, this demonstrates foci of peripheral discontinuous nodular enhancement and is typical in appearanc e for a hemangioma. This was also seen in 2017. Gallbladder: Unremarkable. Spleen: Normal in size and attenuation. Pancreas: Unremarkable. Adrenal glands: Unremarkable. Kidneys: The contrast enhanced kidneys are normal in size and without hydronephrosis. The kidneys enh ance symmetrically. A subcentimeter cortical hypodensity in the left lower pole likely represents a c yst but is too small for definitive characterization. Abdominal vasculature: The abdominal aorta is normal in course and caliber noting scattered foci of a therosclerotic calcification. Bowel: Mild colonic fecal retention is noted. No bowel obstruction is seen. The appendix is mildly d ilated measuring up to 9 mm in diameter. There is faint periappendiceal stranding. Peritoneum: There is no intraperitoneal free air or abdominal ascites. Lymphadenopathy: None. Pelvic viscera: The bladder, uterus, and adnexa are normal as visualized. Venous varicosities are not ed in the left upper thigh. Skeletal structures: No lytic or blastic lesions are seen. IMPRESSION: 1. Findings are consistent with mild acute appendicitis. 2. There is no evidence of abscess or perforation. 3. Additional findings as above. Electronically signed by: Kris Sanabria M.D. 06/20/2018 7:57 AM
[2018-06-20] MEDS ORDERED: fentaNYL citrate 100 MCG/2 ML VIAL ONE ×3 (08:02→12:25)
[2018-06-20] MEDS ORDERED: ROCURONIUM BROMIDE 10 MG/ML 5 ML VIAL ONE ×2 (08:02→08:26)
[2018-06-20] MEDS ORDERED: ONDANSETRON INJ 2 MG/ML 2 ML VIAL ONE ×4 (08:02→12:31)
[2018-06-20] MEDS ORDERED: SUCCINYLCHOLINE CHLORIDE 20 MG/ML 10 ML VIAL ONE ×3 (08:02→12:04)
[2018-06-20] MEDS ORDERED: LIDOCAINE HCL 2% 2 ML VIAL/AMP(20MG/ML) INFIL ONE ×2 (08:02→08:26)
[2018-06-20] MEDS ORDERED: PROPOFOL IV EMULSION 10 MG/ML 20 ML VIAL IV ONE ×2 (08:02→08:26)
[2018-06-20] MEDS ORDERED: DEXAMETHASONE SOD INJ 4 MG/ML VIAL ONE ×2 (08:02→08:26)
[2018-06-20] MEDS ORDERED: SCOPOLAMINE 1.5 MG TDSY ONE (08:20)
[2018-06-20] MEDS ORDERED: MIDAZOLAM HCL 1 MG/ML 2ML VIAL ONE ×2 (08:26→11:36)
--- NOTE | 2018-06-20 09:00 | Ultrasound Report ---
ULTRASOUND RIGHT UPPER QUADRANT ABDOMEN CLINICAL HISTORY: Right upper quadrant abdominal pain. COMPARISON STUDY: Abdominal CT dated 12/16/2016. TECHNIQUE: Real-time, grayscale, and color flow sonography of the right upper quadrant of the abdomen was performed. Images are reviewed in the transverse and longitudinal planes. FINDINGS: Liver: The liver is normal in size and demonstrates heterogeneously increased echotexture suggesting steatosis. There is no intrahepatic biliary ductal dilatation. The main portal vein is patent. Gallbladder: A 6 mm gallbladder polyp is incidentally noted. The gallbladder is otherwise normal in a ppearance. No gallstones are identified. There is no gallbladder wall thickening or pericholecystic f luid. A sonographic Augustin's sign is reportedly absent. The common bile duct measures up to 0.4 cm in diameter. Pancreas: Visualized portions of the pancreatic head and body are normal in appearance. Right kidney: Survey images of the right kidney demonstrate normal size and echotexture. There is no hydronephrosis. A small extrarenal pelvis is noted. Ascites: None. IMPRESSION: 1. No acute sonographic abnormality is identified in the right upper quadrant. No gallstones are seen . 2. Mild hepatic steatosis is suggested. 3. A 6 m gallbladder polyp is incidentally noted. Electronically signed by: Kris Sanabria M.D. 06/20/2018 8:58 AM
[2018-06-20] MEDS ORDERED: CEFAZOLIN 250 MG/ML 1 GM VIAL ONE (09:08)
[2018-06-20] MEDS ORDERED: BUPIVACAINE/EPINEPHRINE 0.5% MPF 1:200,000 30 ML VIAL ONE (09:13)
[2018-06-20] MEDS ORDERED: KETOROLAC 30 MG/ML VIAL ONE (09:36)
--- NOTE | 2018-06-20 09:42 | Operative Report ---
Post Operative Report Pre & Post Diagnosis Operation Date: 06/20/18 09:00 Pre-Op Diagnosis: APPENDICITIS Post-Op Diagnosis: APPENDICITIS Procedure Operation Date: 06/20/18 09:00 Actual Procedures p Laparoscopic Appendectomy(Not Applicable) - Fermín Bonds DO Surgeon Fermín Bonds DO Ion Exchange Operator arsen Gramajo Estimated Blood Loss 10 Findings Consistent with Post-Op Diagnosis Specimens appendix Description of Procedure After informed consent was obtained the patient was taken to the operating room and placed in supine position. After successful intubation a Glez catheter was placed and the left arm was tucked. A Glez catheter was inserted sterilely. I began by making a periumbilical incision with an 11 blade scalpel and carried this down through the soft tissue using electrocautery. The anterior rectus fascia was opened using electrocautery and 2 #0 Vicryl stay sutures were placed. The peritoneum was elevated using hemostats and incised under direct vision using a Metzenbaum scissor. A finger sweep was performed. A 12 mm Mercado trocar was placed and the abdomen was insufflated to 18 mmHg. A laparoscope was inserted and the abdomen was examined in 360. A suprapubic 5 mm port and a left lower quadrant 12 mm port were placed under direct vision. The patient was air planed to the left as well as placed in a slight Trendelenburg position. We began by looking in the right lower quadrant. We were able to readily identify the appendix and it was grossly inflamed. It had not perforated. There is a small amount of purulent fluid in the right lower quadrant and the pelvis. We immediately irrigated and suctioned this out. I was able to use primarily blunt dissection to pull the appendix away from the right lower quadrant sidewall. I was then able to use a VIVEK brown cartridge stapler to transect both the mesentery of the appendix as well as the appendix itself at its base with the cecum. It was then placed into an Endo Catch bag and removed from the camera port site. We thoroughly irrigated the right lower quadrant as well as the pelvis. There was adequate hemostasis. I ran the small bowel backwards from the terminal ileum for about 6 feet all of which was normal. All the peritoneal surfaces were normal. Small/ large bowel, liver, stomach etc. all appeared grossly normal. We did a final irrigation and then removed all the trochars and desufflated the abdomen. The fascia of the camera port as well as the left lower quadrant were closed using 0 Vicryl in figure-of- eight fashion. Wounds were all irrigated and closed using 4-0 Monocryl. Marcaine was injected around them for postoperative analgesia and skin glue used as a dressing. The patient was awakened extubated and transferred to recovery in stable condition. My physician's library services assistant was present through the entire case. She assisted with prepping the patient and helped with exposure for port placement, helped run the camera and helped with fascial/wound closure at the end of the procedure as well as dressing placement. I attest to the content of the Intraoperative Record and any orders documented therein. Any exceptions are noted below. I attest to the content of the Intraoperative Record and any orders documented therein. Any exceptions are noted below.
[2018-06-20] MEDS ORDERED: GLYCOPYRROLATE 0.2 MG/ML VIAL ONE ×2 (09:43→11:29)
[2018-06-20] MEDS ORDERED: NEOSTIGMINE METHYLSULFATE 5 MG/5 ML SYR ONE (09:43)
[2018-06-20] MEDS ORDERED: METOCLOPRAMIDE HCL INJ 5 MG/ML 2 ML VIAL ONE (09:45)
[2018-06-20 11:05] LABS: Hematocrit (blood only) 23.9 % (37-47); Mean Corpuscular Hgb Conc 33.5 g/dL (32-36); Mean Corpuscular Volume 89.8 fL (80-100); Mean Platelet Volume 9.2 fL (7.4-10.4); Platelet Count 277 K/uL (130-400); RDW Coefficient of Variation 12.3 % (11.5-14.5); RDW Standard Deviation 39.9 fL (36.4-46.3); Red Blood Count 2.66 M/uL (4.2-5.4); White Blood Count 21.43 K/uL (4.8-10.8)
--- NOTE | 2018-06-20 11:16 | Ultrasound Report ---
ULTRASOUND ABDOMEN LIMITED CLINICAL HISTORY: Postoperative bleeding status post laparoscopic appendectomy. COMPARISON STUDY: Abdominal CT performed earlier the same day 06/20/2018. FINDINGS: Real-time grayscale sonography of all 4 quadrants of the abdomen is performed to assess for postoperative bleeding. There is a small volume of complex fluid in the right upper quadrant around the liver and in the right lower quadrant. This is new from today's CT scan. There is a large volume of complex fluid identified in the left upper quadrant measuring over 20 cm in length. This is highly concerning for hemoperitoneum and also new from previous. IMPRESSION: 1. There is a large volume of complex fluid in the left upper quadrant. This is highly concerning for hemoperitoneum, and this is new from today's abdominal CT scan. 2. A small volume of mildly complex fluid in the right upper and right lower quadrant is also new fro m previous. Electronically signed by: Kris Sanabria M.D. 06/20/2018 11:14 AM
[2018-06-20 11:24] LABS: Albumin Globulin Ratio 0.7 (0.9-2); Albumin Level 1.7 gm/dl (3.4-5.0); BUN Creatinine Ratio 10.9 (10-20); Bilirubin,Total 0.4 mg/dl (0.2-1); Calcium 7.1 mg/dl (8.5-10.1); Est GFR (African American) 109.2; Est GFR (Non-African American) 94.3; Globulin 2.3 gm/dl (2.5-4.0); Potassium 3.8 mmol/L (3.5-5.1)
[2018-06-20] MEDS ORDERED: PHENYLEPHRINE HCL 10 MG/ML VIAL ONE (12:02)
[2018-06-20] MEDS ORDERED: PHENYLEPHRINE 100MCG/ML 5ML SYR ONE (12:02)
[2018-06-20] MEDS ORDERED: ETOMIDATE 2 MG/ML 20 ML VIAL IV ONE (12:04)
[2018-06-20 13:08] LABS: Hematocrit (blood only) 22.2 % (37-47); Hemoglobin 7.7 g/dL (12.0-16.0)
--- NOTE | 2018-06-20 13:33 | Anesthesiology Progress Note ---
Date of Service June 20, 2018 Anesthesia Post Procedure Vital Signs Vital Signs: Temp Pulse Pulse Pulse Pulse Resp BP 06/20/18 13:15 94 H 23 06/20/18 13:05 90 23 06/20/18 12:55 105 H 24 06/20/18 12:48 36.1 C L 106 H 20 06/20/18 11:20 36.0 C L 110 H 27 H 06/20/18 11:10 114 H 23 06/20/18 11:00 124 H 23 06/20/18 10:50 104 H 16 06/20/18 10:47 112 H 15 06/20/18 10:35 110 H 18 06/20/18 10:25 100 H 26 H 06/20/18 10:15 98 H 21 06/20/18 10:05 78 20 06/20/18 09:55 102 H 18 06/20/18 09:48 36.3 C L 78 20 06/20/18 07:05 36.9 C 99 H 18 06/20/18 03:37 36.7 C 90 16 06/20/18 03:06 78 20 130/90 06/20/18 01:01 36.5 C 06/20/18 00:39 86 18 06/19/18 23:22 37.0 C 103 H 20 158/94 H BP BP BP Pulse Ox 06/20/18 13:15 94/52 L 89/63 L 100 06/20/18 13:05 99/55 L 110/67 100 06/20/18 12:55 93/67 L 97 06/20/18 12:48 115/58 L 97 06/20/18 11:20 89/53 L 100 06/20/18 11:10 77/58 L 100 06/20/18 11:00 72/47 L 100 06/20/18 10:50 81/62 L 100 06/20/18 10:47 65/43 L 99 06/20/18 10:35 80/63 L 98 06/20/18 10:25 82/61 L 95 06/20/18 10:15 90/64 L 96 06/20/18 10:05 86/63 L 97 06/20/18 09:55 105/76 97 06/20/18 09:48 118/86 98 06/20/18 07:05 122/75 99 06/20/18 03:37 149/101 H 98 06/20/18 03:06 97 06/20/18 01:01 06/20/18 00:39 143/89 H 99 06/19/18 23:22 100 Pain Intensity Abdomen: Pain Intensity: 5 Notes Mental Status: alert / awake / arousable Patient Amnestic to Procedure: Yes Nausea / Vomiting: adequately controlled Pain: adequately controlled Airway Patency, RR, SpO2: stable & adequate BP & HR: stable & adequate Hydration State: stable & adequate Anesthetic Complications: no major complications apparent and Pt Satisfied with anesthetic care Notes: The patient underwent an exploratory laparoscopy and abdominal washout due to bleeding from a port site. Her EBL was 2500. The patient received a total of 3 units PRBC, one unit of FFP, one liter of colloid, and several liters of crystalloid. She was hypotenisve and tachycardic in the OR. Her SBP is in the 90s now with HR in the 90s. She is sleepy but easily arousable and has a small amount of surgical site pain. Postop hgb is 7.7. Dr. Bonds is aware and does not believe that she will have any further bleeding. The patient does not require further transfusion at this time, although she has one unit of PRBC that is type and crossed on hold. The patient will go to the telemetry unit for monitoring overnight.
--- NOTE | 2018-06-20 13:39 | Operative Report ---
Post Operative Report Pre & Post Diagnosis Operation Date: 06/20/18 09:00 Pre-Op Diagnosis: APPENDICITIS Post-Op Diagnosis: APPENDICITIS Operation Date: 06/20/18 11:00 Pre-Op Diagnosis: Postoperative bleeding Post-Op Diagnosis: Port site bleeding Procedure Operation Date: 06/20/18 09:00 Actual Procedures p Laparoscopic Appendectomy(Not Applicable) - Fermín Bonds DO Operation Date: 06/20/18 11:00 Actual Procedures p Exploratory laparotomy, oversew of port site bleeding, abdominal washout - Fermín Bonds DO Surgeon Fermín Bonds DO 2nd surgeon: Dr. Tobias Estate Conservator Dr. Tobias Estimated Blood Loss 2,500 Findings Consistent with Post-Op Diagnosis Specimens none Description of Procedure The patient was brought to the operating room emergently secondary to postoperative bleeding. The patient is just status post laparoscopic appendectomy and in the recovery room became hypotensive. Stat abdominal ultrasound showed fluid around the liver. I was unable to find the family to obtain consent and the patient had recently undergone anesthesia. We therefore took her to the operating room in an emergent situation. After successful intubation the abdomen was sterilely prepped and draped in usual fashion. Dr. Tobias was in the area and I asked for his help intraoperatively. We opened the periumbilical incision with a 10 blade scalpel and carried down through the soft tissue using blunt finger fractionation. The 0 Vicryl stitch was cut and a finger sweep performed to enter the abdominal cavity. We inserted a 12 mm trocar and insufflated the abdomen to 20 mmHg. I inserted the laparoscope and immediately encountered large amounts of free blood within the abdomen. We looked around the previous sites and found the bleeding coming from the left lower quadrant port site. I was able to open this port site and placed my finger in under the fascia and pull up on it tamponading the bleeding. We then placed a right mid abdominal 5 mm trocar. I was able to use a fascial closure device with 0 Vicryl to come through either side of the bleeding point and tie it down to control it. This was consistent with a muscle bleed from the port site. Once we had the bleeding controlled we then went about suctioning and irrigating out the blood within the abdomen. We suctioned out and irrigated all 4 quadrants until we got all of the visible blood that we possibly could. We then desufflated the abdomen and waited for several minutes reinsufflated the abdomen and then looked to the left lower quadrant site to ensure that in fact it was still controlled. There is no evidence of persistent bleeding. A final irrigation around the abdomen was performed. No other areas of abnormality or bleeding were identified. I placed a 19 [place]ian round drain in the pelvis and brought out through the port site. I secured to skin using 2-0 nylon. All the trochars were then removed and the abdomen was desufflated. The fascia of the camera port was closed using 0 Vicryl in a [id number] fashion. The wounds were all irrigated and closed using 4-0 Monocryl. Marcaine was injected around them for postoperative analgesia and skin glue used as a dressing. The patient was awaken extubated and transferred to recovery in stable condition I attest to the content of the Intraoperative Record and any orders documented therein. Any exceptions are noted below.
--- NOTE | 2018-06-20 14:20 | Consultation Report ---
DATE OF CONSULTATION: 06/20/2018 REASON FOR CONSULTATION: Postoperative bleeding. Ms. Casillas is a 48-year-old female whom I have not met prior to this encounter. Dr. Fermín Bonds performed a laparoscopic appendectomy today on 06/20/2018. It was an uneventful case with no bleeding. Dr. Bonds was in the middle of another case when the patient's blood pressure dropped in the PACU and she had abdominal distention. Ultrasound showed what appeared to be blood intraabdominally. She required aggressive resuscitation. We opened another room and brought her to the operating room. Upon investigation, there was a muscle bleeder from her inferior port site; however, it bled quite a bit. She was stabilized with aggressive resuscitation measures. I assisted Dr Bonds in preparing the patient for her return to the OR and assisted him in the OR. Dr. Bonds controlled the bleeding easily. The patient tolerated the procedure well and left the operating room in a much improved condition. For details of this patient's operative notes and her presentation, please refer to Dr. Bonds's notes. MTDD
[2018-06-20] MEDS ORDERED: MoRPHine SULFATE 4 MG/ML 1 ML CARP\\VIAL IV PRN (14:26)
[2018-06-20 15:46] LABS: Hematocrit (blood only) 26.7 % (37-47); Hemoglobin 9.2 g/dL (12.0-16.0)
[2018-06-20] MEDS ORDERED: HYDROmorphone INJ 1 MG/ML SYRINGE IV STA (15:59)
--- NOTE | 2018-06-20 16:04 | Anesthesiology Progress Note ---
Date of Service June 20, 2018 The patients repeat hgb was 9.2. The patients SBP is >100. Physical Exam Vital Signs Last Vital Signs Temp 36.6 C 06/20/18 15:45 Pulse 119 H 06/20/18 15:45 Resp 18 06/20/18 15:45 BP 109/76 06/20/18 15:45 Pulse Ox 100 06/20/18 15:45 Results & Data Medications Administered Lactated Ringer's (Lr) 1,000 mls @ 125 mls/hr IV .Q8H ELEUTERIO Stop: 07/20/18 03:19 Last Admin: 06/20/18 15:11 Dose: 125 mls/hr Infusion: 06/20/18 12:10 Dose: 125 mls/hr Admin: 06/20/18 04:10 Dose: 125 mls/hr Morphine Sulfate (Morphine Sulfate) 2 mg IV Q2H PRN PRN Reason: Pain Stop: 07/04/18 03:19 Last Admin: 06/20/18 15:12 Dose: 2 mg
[2018-06-20] MEDS ORDERED: NALOXONE HCL 0.4 MG/1 ML VIAL/CARP IV PRN ×2 (16:11→16:25)
[2018-06-20] MEDS ORDERED: HYDROmorphone HCL 0.5MG/ML 50 ML CASSETTE IV PRN (16:25)
[2018-06-20] MEDS ORDERED: SODIUM CHLORIDE 0.9% 1000ML 1,000 ML IV SCH (16:30)
[2018-06-20] MEDS: SODIUM CHLORIDE 0.9% 1000ML 1,000 ML IV SCH (17:20)
[2018-06-20] MEDS: CEFAZOLIN 2000MG 2,000 MG/15 ML SYR IV SCH (18:19)
[2018-06-21] MEDS: CEFAZOLIN 2000MG 2,000 MG/15 ML SYR IV SCH ×3 (01:18→17:55)
[2018-06-21] MEDS: LACTATED RINGER'S 1,000 ML IV SCH ×3 (04:28→19:26)
[2018-06-21 07:55] LABS: Basophils # (auto) 0.01 K/uL (0-0.2); Basophils % (auto) 0.1 %; Eosinophils # (auto) 0.01 K/uL (0-0.5); Eosinophils % (auto) 0.1 %; Hematocrit (blood only) 22.5 % (37-47); Hemoglobin 7.8 g/dL (12.0-16.0); Immature Granulocytes # (auto) 0.05 K/uL (0.00-0.02); Immature Granulocytes % (auto) 0.3 %; Lymphocytes # (auto) 2.53 K/uL (1.2-3.4); Lymphocytes % (auto) 17.5 %; Mean Corpuscular Hgb Conc 34.7 g/dL (32-36); Mean Corpuscular Volume 85.6 fL (80-100); Mean Platelet Volume 8.9 fL (7.4-10.4); Monocytes # (auto) 1.37 K/uL (0.11-0.59); Monocytes % (auto) 9.5 %; Neutrophils # (auto) 10.46 K/uL (1.4-6.5); Neutrophils % (auto) 72.5 %; Platelet Count 160 K/uL (130-400); RDW Coefficient of Variation 14.2 % (11.5-14.5); RDW Standard Deviation 43.7 fL (36.4-46.3); Red Blood Count 2.63 M/uL (4.2-5.4); White Blood Count 14.43 K/uL (4.8-10.8)
--- NOTE | 2018-06-21 08:10 | Anesthesiology Progress Note ---
Date of Service June 21, 2018 Anesthesia Post Procedure Vital Signs Vital Signs: Temp Pulse Pulse Pulse Resp BP BP 06/21/18 07:41 37.1 C 115 H 16 117/78 06/21/18 04:00 36.9 C 111 H 21 06/21/18 00:13 119 H 06/20/18 23:47 36.8 C 127 H 20 06/20/18 20:00 36.3 C L 114 H 20 06/20/18 18:33 35.7 C L 107 H 18 92/66 L 06/20/18 17:02 91/64 L 06/20/18 16:55 36.6 C 117 H 18 06/20/18 16:21 36.2 C L 116 H 18 06/20/18 15:45 36.6 C 119 H 18 06/20/18 15:01 06/20/18 14:53 37.0 C 62 20 114/62 06/20/18 14:43 36.5 C 110 H 18 06/20/18 13:55 110 H 18 87/58 L 06/20/18 13:45 36.2 C L 106 H 22 92/60 L 06/20/18 13:35 101 H 24 94/67 L 06/20/18 13:25 96 H 23 97/61 L 06/20/18 13:15 94 H 23 94/52 L 06/20/18 13:05 90 23 99/55 L 06/20/18 12:55 105 H 24 06/20/18 12:48 36.1 C L 106 H 20 06/20/18 11:20 36.0 C L 110 H 27 H 06/20/18 11:10 114 H 23 06/20/18 11:00 124 H 23 06/20/18 10:50 104 H 16 06/20/18 10:47 112 H 15 06/20/18 10:35 110 H 18 06/20/18 10:25 100 H 26 H 06/20/18 10:15 98 H 21 06/20/18 10:05 78 20 06/20/18 09:55 102 H 18 06/20/18 09:48 36.3 C L 78 20 BP Pulse Ox 06/21/18 07:41 96 06/21/18 04:00 125/84 96 06/21/18 00:13 06/20/18 23:47 113/78 95 06/20/18 20:00 104/71 96 06/20/18 18:33 96 06/20/18 17:02 06/20/18 16:55 86/62 L 96 06/20/18 16:21 92/62 L 100 06/20/18 15:45 109/76 100 06/20/18 15:01 101/64 06/20/18 14:53 95 06/20/18 14:43 87/56 L 100 06/20/18 13:55 100 06/20/18 13:45 100 06/20/18 13:35 93/51 L 100 06/20/18 13:25 91/51 L 100 06/20/18 13:15 89/63 L 100 06/20/18 13:05 110/67 100 06/20/18 12:55 93/67 L 97 06/20/18 12:48 115/58 L 97 06/20/18 11:20 89/53 L 100 06/20/18 11:10 77/58 L 100 06/20/18 11:00 72/47 L 100 06/20/18 10:50 81/62 L 100 06/20/18 10:47 65/43 L 99 06/20/18 10:35 80/63 L 98 06/20/18 10:25 82/61 L 95 06/20/18 10:15 90/64 L 96 06/20/18 10:05 86/63 L 97 06/20/18 09:55 105/76 97 06/20/18 09:48 118/86 98 Pain Intensity Abdomen: Pain Intensity: 4 Notes Mental Status: alert / awake / arousable and participated in evaluation Patient Amnestic to Procedure: Yes Nausea / Vomiting: adequately controlled Pain: adequately controlled Airway Patency, RR, SpO2: stable & adequate BP & HR: stable & adequate Hydration State: stable & adequate Anesthetic Complications: no major complications apparent
[2018-06-21 08:31] LABS: RBC Morphology Unremarkable
[2018-06-21] MEDS ORDERED: HYDROCODONE/ACETAMOPHEN 5/325MG TAB PO PRN (08:43)
[2018-06-21] MEDS: HYDROCODONE/ACETAMOPHEN 5/325MG TAB PO PRN ×3 (09:20→18:10)
[2018-06-21 12:15] LABS: Hematocrit (blood only) 21.2 % (37-47); Hemoglobin 7.5 g/dL (12.0-16.0)
--- NOTE | 2018-06-21 13:27 | Surgery Progress Note ---
Date of Service June 21, 2018 Assessment & Plan (1) Appendicitis: POD #1 s/p Laparoscopic Appendectomy; s/p Exploratory laparotomy, oversew of port site bleeding, abdominal washout Patient seen and examined with Dr. Bonds Blood pressure stable, HR elevated this AM. Afebrile. AM labs reviewed. Hgb 7.8; Hct 21.2. Repeat labs at noon Hgb 7.5; Hct 21.2. Stable. Repeat H and H in AM. Decrease IVF LR from 125 to 75 Continue Dilaudid ENVIRONMENTAL ASSOCIATE and PO [place]. Subjective Patient resting in bed- reports abdominal pain- spasms. Denies nausea or vomiting. Physical Exam 2 Vital Signs (Past 24 Hours): Last Vital Signs Temp 36.7 C 06/21/18 12:25 Pulse 118 H 06/21/18 12:25 Resp 18 06/21/18 12:25 BP 126/82 06/21/18 12:25 Pulse Ox 91 06/21/18 12:25 Gastrointestinal (Abdomen): Inspection/Auscultation: + abdominal surgical incision (clean, dry, intact ) and + abdominal surgical drain present Percussion/Palpation: + abdomen tender _ (1) Appendicitis Acute appendicitis type: Appendicitis abscess presence: Appendicitis gangrene presence: Appendicitis perforation presence: Appendicitis type:
[2018-06-21] MEDS: SODIUM CHLORIDE 0.9% 1000ML 1,000 ML IV SCH (17:56)
[2018-06-21] MEDS: ONDANSETRON INJ 2 MG/ML 2 ML VIAL IV PRN ×2 (18:14→22:01)
[2018-06-22] MEDS: ONDANSETRON INJ 2 MG/ML 2 ML VIAL IV PRN ×2 (02:30→14:52)
[2018-06-22] MEDS: HYDROCODONE/ACETAMOPHEN 5/325MG TAB PO PRN ×3 (02:33→14:37)
[2018-06-22] MEDS: CEFAZOLIN 2000MG 2,000 MG/15 ML SYR IV SCH ×3 (02:34→21:00)
[2018-06-22 08:01] LABS: Hematocrit (blood only) 18.6 % (37-47); Hemoglobin 6.3 g/dL (12.0-16.0); Mean Corpuscular Hgb Conc 33.9 g/dL (32-36); Mean Corpuscular Volume 88.2 fL (80-100); Mean Platelet Volume 8.7 fL (7.4-10.4); Platelet Count 161 K/uL (130-400); RDW Coefficient of Variation 14.6 % (11.5-14.5); RDW Standard Deviation 46.8 fL (36.4-46.3); Red Blood Count 2.11 M/uL (4.2-5.4); White Blood Count 13.63 K/uL (4.8-10.8)
[2018-06-22 08:20] LABS: Basophils # (auto) 0.01 K/uL (0-0.2); Basophils % (auto) 0.1 %; Eosinophils # (auto) 0.02 K/uL (0-0.5); Eosinophils % (auto) 0.1 %; Immature Granulocytes # (auto) 0.08 K/uL (0.00-0.02); Immature Granulocytes % (auto) 0.6 %; Lymphocytes # (auto) 2.33 K/uL (1.2-3.4); Lymphocytes % (auto) 17.1 %; Monocytes # (auto) 0.85 K/uL (0.11-0.59); Monocytes % (auto) 6.2 %; Neutrophils # (auto) 10.34 K/uL (1.4-6.5); Neutrophils % (auto) 75.9 %; RBC Morphology Unremarkable
[2018-06-22] MEDS ORDERED: SODIUM CHLORIDE 0.9% 250 ML IV PRN ×2 (08:24→09:32)
[2018-06-22] MEDS: LACTATED RINGER'S 1,000 ML IV SCH ×2 (08:30→21:16)
[2018-06-22] MEDS ORDERED: KETOROLAC 30 MG/ML VIAL IV STA (09:34)
--- NOTE | 2018-06-22 09:36 | Surgery Progress Note ---
Date of Service June 22, 2018 Assessment & Plan (1) Appendicitis: POD 2 lap appy, post op bleed Hgb 6.3, will transfuse 2 units PRBCs and 1 FFP can have full liquids PT to assist amb continue PREDATORY HUNTER, will try one dose Toradol as above. pt feeling much better this afternoon still slowly dropping h/h. FFP given today drain showing old/dark blood increase activity/ambulate keep on full liquids for now Subjective still having pain, no nausea but not liking clears, some rumbling no flatus, some lightheadedness Physical Exam 2 Vital Signs (Past 24 Hours): Last Vital Signs Temp 37.3 C 06/22/18 09:19 Pulse 106 H 06/22/18 09:19 Resp 18 06/22/18 09:19 BP 121/75 06/22/18 09:19 Pulse Ox 92 06/22/18 09:19 Gastrointestinal (Abdomen): Inspection/Auscultation: + abdominal surgical drain present (50 cc bloody drainage); abdomen not distended Percussion/ Palpation: abdomen soft _ (1) Appendicitis Acute appendicitis type: Appendicitis abscess presence: Appendicitis gangrene presence: Appendicitis perforation presence: Appendicitis type:
[2018-06-22] MEDS: SODIUM CHLORIDE 0.9% 1000ML 1,000 ML IV SCH (18:24)
[2018-06-22] MEDS: KETOROLAC 30 MG/ML VIAL IV PRN (21:38)
[2018-06-22 22:17] LABS: Hematocrit (blood only) 23.4 % (37-47); Hemoglobin 8.1 g/dL (12.0-16.0)
[2018-06-23] MEDS: CEFAZOLIN 2000MG 2,000 MG/15 ML SYR IV SCH ×2 (02:23→09:57)
[2018-06-23] MEDS: LEVOTHYROXINE SODIUM 88 MCG TABLET PO SCH (05:03)
[2018-06-23] MEDS: KETOROLAC 30 MG/ML VIAL IV PRN (05:03)
--- NOTE | 2018-06-23 07:46 | Surgery Progress Note ---
Date of Service June 23, 2018 Assessment & Plan (1) Appendicitis: POD 3 lap appy, post op bleed AM labs pending, Hgb 8.1 last evening HR, BP improved diet as albina ambulate pt seen. as above. slowly improving. H/H stable at this point will add flexiril for what sounds like muscle spasms. can advance to regular diet per pt request keep KERRY Subjective some progress yesterday, OOB to chair, tolerating full liquids, passing some flatus Physical Exam 2 Vital Signs (Past 24 Hours): Last Vital Signs Temp 37.1 C 06/23/18 07:42 Pulse 91 H 06/23/18 07:42 Resp 18 06/23/18 07:42 BP 131/77 06/23/18 07:42 Pulse Ox 92 06/23/18 07:42 Gastrointestinal (Abdomen): Inspection/Auscultation: + abdominal surgical incision (clean, dry) and + abdominal surgical drain present (140 cc, bloody) Percussion/Palpation: abdomen soft _ (1) Appendicitis Acute appendicitis type: Appendicitis abscess presence: Appendicitis gangrene presence: Appendicitis perforation presence: Appendicitis type:
[2018-06-23 08:52] LABS: Basophils # (auto) 0.01 K/uL (0-0.2); Basophils % (auto) 0.1 %; Eosinophils # (auto) 0.19 K/uL (0-0.5); Hematocrit (blood only) 24.1 % (37-47); Hemoglobin 8.2 g/dL (12.0-16.0); Immature Granulocytes # (auto) 0.08 K/uL (0.00-0.02); Immature Granulocytes % (auto) 0.8 %; Lymphocytes # (auto) 2.07 K/uL (1.2-3.4); Lymphocytes % (auto) 21.6 %; Mean Corpuscular Volume 88.3 fL (80-100); Mean Platelet Volume 8.7 fL (7.4-10.4); Monocytes % (auto) 6.3 %; Neutrophils # (auto) 6.65 K/uL (1.4-6.5); Neutrophils % (auto) 69.2 %; Nucleated RBC # (auto) 0.06 K/uL (0-0); Nucleated RBC % (auto) 0.7 %; Platelet Count 139 K/uL (130-400); RDW Coefficient of Variation 14.3 % (11.5-14.5); Red Blood Count 2.73 M/uL (4.2-5.4)
[2018-06-23 09:22] LABS: Polychromasia 1+
[2018-06-23] MEDS: LACTATED RINGER'S 1,000 ML IV SCH ×2 (09:57→23:27)
[2018-06-23] MEDS: HYDROCODONE/ACETAMOPHEN 5/325MG TAB PO PRN ×2 (12:31→23:30)
[2018-06-23] MEDS: CYCLOBENZAPRINE HCL 10 MG TAB PO SCH ×2 (14:19→20:47)
[2018-06-23] MEDS: SODIUM CHLORIDE 0.9% 1000ML 1,000 ML IV SCH (17:16)
[2018-06-24] MEDS: LEVOTHYROXINE SODIUM 88 MCG TABLET PO SCH (06:18)
[2018-06-24] MEDS: KETOROLAC 30 MG/ML VIAL IV PRN (06:23)
[2018-06-24 07:25] LABS: Basophils # (auto) 0.02 K/uL (0-0.2); Basophils % (auto) 0.2 %; Eosinophils # (auto) 0.24 K/uL (0-0.5); Eosinophils % (auto) 2.9 %; Hemoglobin 8.5 g/dL (12.0-16.0); Immature Granulocytes # (auto) 0.06 K/uL (0.00-0.02); Immature Granulocytes % (auto) 0.7 %; Lymphocytes # (auto) 1.52 K/uL (1.2-3.4); Lymphocytes % (auto) 18.4 %; Mean Corpuscular Volume 89.6 fL (80-100); Mean Platelet Volume 8.9 fL (7.4-10.4); Monocytes # (auto) 0.53 K/uL (0.11-0.59); Monocytes % (auto) 6.4 %; Neutrophils % (auto) 71.4 %; Nucleated RBC # (auto) 0.04 K/uL (0-0); Nucleated RBC % (auto) 0.5 %; Platelet Count 175 K/uL (130-400); RDW Coefficient of Variation 14.2 % (11.5-14.5); RDW Standard Deviation 45.3 fL (36.4-46.3); Red Blood Count 2.79 M/uL (4.2-5.4); White Blood Count 8.27 K/uL (4.8-10.8)
[2018-06-24] MEDS ORDERED: FUROSEMIDE 40 MG in SYRINGE 0 ML IV ONE (07:50)
--- NOTE | 2018-06-24 07:55 | Surgery Progress Note ---
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 pt improving each day. H/H stable albina diet will need to go home with KERRY hopeful d/c tomorrow. Subjective still using FIELD SERVICES DIRECTOR, [place] makes her drowsy, tolerating diet, no BM Physical Exam 2 Vital Signs (Past 24 Hours): Last Vital Signs Temp 37.6 C H 06/24/18 03:53 Pulse 94 H 06/24/18 03:53 Resp 20 06/24/18 03:53 BP 144/80 H 06/24/18 03:53 Pulse Ox 93 06/24/18 03:53 Gastrointestinal (Abdomen): Inspection/Auscultation: + abdominal surgical drain present (dark bloody drainage, 80-140cc per shift); abdomen not distended Percussion/Palpation: abdomen soft +2 ext edema _ (1) Appendicitis Acute appendicitis type: Appendicitis abscess presence: Appendicitis gangrene presence: Appendicitis perforation presence: Appendicitis type:
[2018-06-24] MEDS: CYCLOBENZAPRINE HCL 10 MG TAB PO SCH ×3 (08:28→21:00)
[2018-06-24 08:42] LABS: Polychromasia 1+
[2018-06-24] MEDS: OXYCODONE/ACETAMINOPHEN 5mg/325mg TAB PO PRN ×3 (10:04→22:40)
[2018-06-25] MEDS: OXYCODONE/ACETAMINOPHEN 5mg/325mg TAB PO PRN ×4 (02:51→22:04)
[2018-06-25] MEDS: LEVOTHYROXINE SODIUM 88 MCG TABLET PO SCH (05:59)
[2018-06-25] MEDS ORDERED: FUROSEMIDE 20 MG TAB PO ONE (07:30)
[2018-06-25] MEDS ORDERED: LORazepam 0.5 MG/1 ML VIAL IV PRN (07:38)
--- NOTE | 2018-06-25 07:46 | Surgery Progress Note ---
Date of Service June 25, 2018 Assessment & Plan (1) Appendicitis: POD 5 lap appy, post op bleed H&H stable after transfusion continue to increase activity recheck later today still having waves of colicky type pain. ? related to drain. has a history of kidney stones. no bm yet also has oral yeast infection will start diflucan and check UA. will also obtain CT scan CBC pending will start ativan for the spasms discussed with nurse regarding pain control Subjective not eating much, pain control marginal, no BM Physical Exam 2 Vital Signs (Past 24 Hours): Last Vital Signs Temp 37.1 C 06/25/18 04:00 Pulse 99 H 06/25/18 04:23 Resp 18 06/25/18 04:00 BP 137/80 06/25/18 04:00 Pulse Ox 92 06/25/18 04:00 Gastrointestinal (Abdomen): Inspection/Auscultation: + abdominal surgical drain present (80 cc overnight) Percussion/Palpation: abdomen soft _ (1) Appendicitis Acute appendicitis type: Appendicitis abscess presence: Appendicitis gangrene presence: Appendicitis perforation presence: Appendicitis type:
[2018-06-25 08:13] LABS: Basophils # (auto) 0.02 K/uL (0-0.2); Basophils % (auto) 0.2 %; Eosinophils # (auto) 0.33 K/uL (0-0.5); Hematocrit (blood only) 27.7 % (37-47); Hemoglobin 9.4 g/dL (12.0-16.0); Immature Granulocytes # (auto) 0.08 K/uL (0.00-0.02); Immature Granulocytes % (auto) 0.7 %; Lymphocytes # (auto) 1.93 K/uL (1.2-3.4); Lymphocytes % (auto) 17.8 %; Mean Corpuscular Hgb Conc 33.9 g/dL (32-36); Mean Corpuscular Volume 89.9 fL (80-100); Mean Platelet Volume 8.7 fL (7.4-10.4); Monocytes # (auto) 0.63 K/uL (0.11-0.59); Monocytes % (auto) 5.8 %; Neutrophils # (auto) 7.84 K/uL (1.4-6.5); Neutrophils % (auto) 72.5 %; Nucleated RBC # (auto) 0.04 K/uL (0-0); Nucleated RBC % (auto) 0.3 %; Platelet Count 229 K/uL (130-400); RDW Coefficient of Variation 14.8 % (11.5-14.5); Red Blood Count 3.08 M/uL (4.2-5.4); White Blood Count 10.83 K/uL (4.8-10.8)
[2018-06-25] MEDS: HYDROmorphone INJ 0.5 MG/0.5 ML SYR IV PRN ×2 (08:13→10:43)
[2018-06-25] MEDS: CYCLOBENZAPRINE HCL 10 MG TAB PO SCH ×3 (08:13→20:13)
[2018-06-25] MEDS: NYSTATIN SUSP 500,000 U/5 ML UDC PO SCH ×4 (08:22→20:13)
[2018-06-25] MEDS: FLUCONAZOLE 100 MG/50 ML BAG IV SCH (09:31)
[2018-06-25] MEDS ORDERED: OPTIRAY 320 125ml IV PRN (10:18)
[2018-06-25] MEDS: AMPICILLIN/SULBACTAM SOD 3,000 MG in 0.9 % SODIUM CHLORIDE 100 ML IV SCH ×3 (10:43→21:36)
--- NOTE | 2018-06-25 10:53 | CT Scan Report ---
ABDOMEN AND PELVIS CT WITH IV CONTRAST CT DOSE: 933.96 mGy.cm HISTORY: Acute generalized abdominal pain with history of recent appendectomy. post op abdominal marzena n TECHNIQUE: Multiaxial CT images of the abdomen and pelvis were performed following the use of intrave nous contrast. A dose lowering technique was utilized adhering to the principles of ALARA. COMPARISON STUDY: CT abdomen pelvis 06/20/2017, abdominal ultrasound 06/20/2017 FINDINGS: Trace bilateral pleural effusions with bibasilar dependent subsegmental consolidative opacities. Mil d amount of pneumoperitoneum about the upper abdomen. The imaged inferior cardiac chambers appear unr emarkable. Lobular ovoid hypodense lesion with peripheral discontinuous nodular enhancement involves the subsero nathalie aspect of the posterior right hepatic lobe which appears unchanged from comparison measuring up t o 4.0 cm in length suggestive of a hepatic angioma. Liver is otherwise unremarkable. Patency of the p ortal and hepatic veins. Spleen, pancreas and adrenal glands appear unremarkable. There may be minima l cholelithiasis. Gallbladder is otherwise unremarkable. 4 mm hypodense lesion about the inferior cy e left kidney is suggestive of a renal cyst. No renal calculi or hydronephrosis. The ureters and blad alfa appear to be within normal limits. Debris noted about the lower uterine segment and cervix. 1.2 c m hypodensity about the right fundal uterus may reflect underlying fibroid. No adnexal mass lesions i dentified. The aorta and IVC are unremarkable. No adenopathy. Postoperative changes from recent appendectomy. No bowel obstruction. The majority of the surgical prasad ture material about the cecum is noted within the adjacent mesocolon. Surgical drainage catheter dist al tip is noted with terminating about the anterior aspect of the mid abdomen. Hemorrhage layers abou t the bilateral pericolic gutters measuring up to 7.0 x 4.3 x 13.5 cm about the left pericolic gutter extending from the mid descending colon into the left hemipelvis. Trace subhepatic hemoperitoneum wi th hemoperitoneum about the right pericolic gutter measuring up to 3.8 x 1.8 x 6.0 cm in AP, transver se and craniocaudal dimensions. Additionally, there is moderate subcutaneous stranding about the righ t anterolateral abdominal wall with ill-defined hematoma measuring up to 10.6 cm in length superior t o and surrounding the drainage catheter. Varices noted about the anterior aspect of the left upper th igh. Bones appear to be intact. IMPRESSION: 1. Postoperative changes compatible with recent appendectomy. The majority of the suture material abo ut the cecum is noted within the adjacent mesocolon. Mild pneumoperitoneum is considered a normal pos toperative finding. 2. Hemoperitoneum with blood products seen within the subhepatic space and left greater than right bi lateral pericolic gutters. Additionally, subcutaneous hematoma about the right anterolateral abdomina l wall is noted about the distribution of the surgical drainage catheter. 3. No postoperative abscess identified. 4. Trace bilateral pleural effusions with bibasilar opacities suggestive of atelectasis. 5. Additional findings as above. Electronically signed by: Christiano Adams M.D. 06/25/2018 10:51 AM
[2018-06-25] MEDS ORDERED: CELECOXIB 100 MG CAP PO ONE (12:00)
[2018-06-25 12:26] LABS: Appearance Urine Clear (Clear); Bacteria Urine Automated Negative (Negative); Bilirubin Urine Negative (Negative); Color Urine Orange; Epithelial Cell Urine Auto >30 /lpf (0-5); Glucose Urine UA Negative (Negative); Ketones Urine Negative (Negative); Leukocyte Esterase Urine Trace (Negative); Nitrite Urine Negative (Negative); Specific Gravity Urine 1.039 (1.000-1.030); Urobilinogen Urine Negative (Negative); pH Urine 7.5 (4.5-7.5)
[2018-06-25 12:42] LABS: Protein Urine Negative (Negative)
[2018-06-25] MEDS: CELECOXIB 100 MG CAP PO SCH (20:13)
[2018-06-26] MEDS: OXYCODONE/ACETAMINOPHEN 5mg/325mg TAB PO PRN ×3 (02:28→22:58)
[2018-06-26] MEDS: AMPICILLIN/SULBACTAM SOD 3,000 MG in 0.9 % SODIUM CHLORIDE 100 ML IV SCH ×4 (03:21→21:10)
[2018-06-26] MEDS: HYDROmorphone INJ 0.5 MG/0.5 ML SYR IV PRN ×2 (06:08→11:47)
[2018-06-26] MEDS: LEVOTHYROXINE SODIUM 88 MCG TABLET PO SCH (06:08)
[2018-06-26] MEDS: CYCLOBENZAPRINE HCL 10 MG TAB PO SCH ×3 (08:05→20:07)
[2018-06-26] MEDS: NYSTATIN SUSP 500,000 U/5 ML UDC PO SCH ×4 (08:05→20:07)
[2018-06-26] MEDS: CELECOXIB 100 MG CAP PO SCH ×2 (08:05→20:07)
[2018-06-26] MEDS: FLUCONAZOLE 100 MG/50 ML BAG IV SCH (09:10)
--- NOTE | 2018-06-26 10:11 | Surgery Progress Note ---
Date of Service June 26, 2018 Assessment & Plan (1) Appendicitis: discussed ct results. pain secondary to sub-q hematoma will add colace to regiment hopeful d/c tomorrow Subjective pt seen. feeling a little better today. pain improving. still no bm Physical Exam 2 Vital Signs (Past 24 Hours): Last Vital Signs Temp 37 C 06/26/18 07:00 Pulse 89 06/26/18 08:00 Resp 16 06/26/18 07:00 BP 119/84 06/26/18 07:00 Pulse Ox 96 06/26/18 07:00 Physical Exam: resting comfortably tongue still with yeast abdomen: soft. expected tenderness KERRY with old dark blood _ (1) Appendicitis Acute appendicitis type: Appendicitis abscess presence: Appendicitis gangrene presence: Appendicitis perforation presence: Appendicitis type:
[2018-06-26] MEDS: DOCUSATE SODIUM 100 MG CAP PO SCH ×2 (12:40→20:07)
[2018-06-26] MEDS: ONDANSETRON INJ 2 MG/ML 2 ML VIAL IV PRN (15:57)
[2018-06-27] MEDS: AMPICILLIN/SULBACTAM SOD 3,000 MG in 0.9 % SODIUM CHLORIDE 100 ML IV SCH ×2 (03:15→10:17)
[2018-06-27] MEDS: LEVOTHYROXINE SODIUM 88 MCG TABLET PO SCH (06:15)
[2018-06-27] MEDS: NYSTATIN SUSP 500,000 U/5 ML UDC PO SCH (07:55)
[2018-06-27] MEDS: OXYCODONE/ACETAMINOPHEN 5mg/325mg TAB PO PRN ×2 (07:55→12:18)
[2018-06-27] MEDS: CYCLOBENZAPRINE HCL 10 MG TAB PO SCH (07:55)
[2018-06-27] MEDS: FLUCONAZOLE 100 MG/50 ML BAG IV SCH (07:55)
[2018-06-27] MEDS: DOCUSATE SODIUM 100 MG CAP PO SCH (07:55)
[2018-06-27] MEDS: CELECOXIB 100 MG CAP PO SCH (07:55)
--- NOTE | 2018-06-27 11:07 | Surgery Progress Note ---
Date of Service June 27, 2018 Assessment & Plan (1) Appendicitis: s/p lap appendectomy complicated by trocar site bleeding requiring transfusion, takeback to OR, drain placement. Slow improvement. OK to discharge today with drain in place. Present on Admission?: Yes Subjective Sitting in chair. Tolerating PO but low appetite. Ambulating. Pain controlled with pain medications. Needs KERRY teaching. Review of Systems All systems reviewed & are unremarkable except as noted in HPI & below Physical Exam 2 Vital Signs (Past 24 Hours): Last Vital Signs Temp 37.3 C 06/27/18 07:15 Pulse 96 H 06/27/18 08:00 Resp 16 06/27/18 07:15 BP 119/72 06/27/18 07:15 Pulse Ox 96 06/27/18 07:15 Respiratory: normal respiratory effort Cardiovascular: RRR, no murmur, no edema Gastrointestinal (Abdomen): Inspection/Auscultation: + abdomen distended, normal bowel sounds and + abdominal surgical drain present (old bloody drainage in KERRY drain) Percussion/Palpation: + abdomen tender (over right sided hematoma) and abdomen soft Neurologic: CN's II-XI intact bilaterally and awake Results & Data Laboratory Results H/H are stable. _ (1) Appendicitis Acute appendicitis type: Appendicitis abscess presence: Appendicitis gangrene presence: Appendicitis perforation presence: Appendicitis type:
--- NOTE | 2018-06-29 08:44 | Discharge Summary ---
Date of Service June 29, 2018 Admission HPI Per Admitting Provider Ms. Casillas is a 48-year-old female who presented to [facility] for evaluation of 1 day history of abdominal pain. Patient reports that abdominal pain was generalized, but has since localized to right lower quadrant. CT scan in ED suspicious for mild acute appendicitis. Will proceed with Laparoscopic Appendectomy in OR with Dr. Bonds today. All questions answered. Principal Diagnosis Acute Appendicitis Discharge Data Allergies Allergy/AdvReac Type Severity Reaction Status Date / Time meclizine AdvReac Unknown migraine Verified 06/19/18 23:44 Consultations 06/20/18 01:44 ED Decision to Admit Stat Procedures Performed Operation Date: 06/20/18 09:00 Actual Procedures p Laparoscopic Appendectomy(Not Applicable) - Fermín Bonds DO Operation Date: 06/20/18 11:00 Actual Procedures p Exploratory laparotomy, oversew of port site bleeding, abdominal washout - Fermín Bonds DO Ordered Studies 06/20/18 00:56 CT abd pelvis IV con only Urgent 06/20/18 11:00 US abdomen limited Stat 06/20/18 23:53 US gallbladder Stat 06/25/18 07:40 CT abd pelvis IV con only Urgent Hospital Course (1) Appendicitis: Operation Date: 06/20/18 Pre-Op Diagnosis: APPENDICITIS Post-Op Diagnosis: APPENDICITIS Procedure Operation Date: 06/20/18 09:00 Actual Procedures p Laparoscopic Appendectomy - Fermín Bonds DO Post-operatively, patient was transferred to PACU- please see Dr. Tobias's following consultation: DICTATED BY: Jeff Tobias MD DATE OF CONSULTATION: 06/20/2018 REASON FOR CONSULTATION: Postoperative bleeding. "Ms. Casillas is a 48-year-old female whom I have not met prior to this encounter. Dr. Fermín Bonds performed a Laparoscopic Appendectomy today on 06/20/2018. It was an uneventful case with no bleeding. Dr. Bonds was in the middle of another case when the patient's blood pressure dropped in the PACU and she had abdominal distention. Ultrasound showed what appeared to be blood intra-abdominally. She required aggressive resuscitation. We opened another room and brought her to the operating room. Upon investigation, there was a muscle bleeder from her inferior port site; however, it bled quite a bit. She was stabilized with aggressive resuscitation measures. I assisted Dr Bonds in preparing the patient for her return to the OR and assisted him in the OR. Dr. Bonds controlled the bleeding easily. The patient tolerated the procedure well and left the operating room in a much improved condition. For details of this patient's operative notes and her presentation, please refer to Dr. Bonds's notes." Pre-Op Diagnosis: Postoperative bleeding Post-Op Diagnosis: Port site bleeding Procedure Operation Date: 06/20/18 11:00 Actual Procedures p Exploratory laparotomy, oversew of port site bleeding, abdominal washout - Fermín Bonds, one 19 Turkmen round drain was placed intraoperatively in the pelvis. Patient was transferred to Telemetry floor for observation. Repeat labwork, pain control. POD#1- s/p Laparoscopic Appendectomy; s/p Exploratory laparotomy, oversew of port site bleeding, abdominal washout Patient seen and examined with Dr. Bonds Blood pressure stable, HR elevated this AM. Afebrile. AM labs reviewed. Hgb 7.8; Hct 21.2. Repeat labs at noon Hgb 7.5; Hct 21.2. Stable. Repeat H and H in AM. Decrease IVF LR from 125 to 75 Continue Dilaudid EXECUTIVE RECRUITER and PO [place]. POD #2 Hgb 6.3, will transfuse 2 units PRBCs and 1 FFP can have full liquids PT to assist amb continue EXECUTIVE RECRUITER, will try one dose Toradol POD #3 AM labs pending, Hgb 8.1 last evening HR, BP improved diet as albina encouraged ambulation POD#4 Hgb 8.5 last evening will give lasix d/c EXECUTIVE RECRUITER, prn dilaudid, Percocet POD#5- H&H stable after transfusion continue to increase activity recheck later today still having waves of colicky type pain. ? related to drain. has a history of kidney stones. no bm yet also has oral yeast infection will start diflucan and check UA. will also obtain CT scan CBC pending will start ativan for the spasms discussed with nurse regarding pain control POD#6- discussed ct results. pain secondary to sub-q hematoma will add colace to regiment hopeful d/c tomorrow POD#7- Patient continues to slowly improve- ok to discharge to home today with drain in place. Return precautions reviewed with patient. Both verbal and written discharge instructions provided. All questions answered. Total Time Total Time Spent Total Time Spent (In Minutes): 15 Discharge Plan Discharge Items Patient Disposition: Home - Self-Care Reason For Visit: APPENDICITIS Discharge Diagnosis: Appendicitis Discharge Goals: Decrease discomfort and Improve function Activity: As commented below Lifting: No more than 10 pounds Bathing Comment: May shower in 24 hrs, but please do not soak or scrub your incisions. Sexual Activity: When tolerated Driving/Machine Use: Resume 1 day after discharge Non-emergency contact: Surgeon Call non-emergency contact if: you have any medication questions, your pain is not controlled, your temperature is above 101.5, your wound has increased redness and your wound has increased drainage Follow-up/Referrals: Fermín Bonds, DO [Surgeon] - (Please call the General Surgery clinic at [phone] to make a follow-up appointment with Dr. Bonds next week. ) Diet: Regular Addtl Provider Instructions: You have surgical glue, Dermabond, over your incisions. You may shower but please do not soak or scrub your incisions. Do not submerge your incisions in any pools, baths, or hot tubs. Please call the General Surgery clinic with any questions or concerns. Prescriptions: New oxycodone-acetaminophen [Percocet] 5-325 mg tablet 1 - 2 tab PO Q4H PRN (Reason: pain) Qty: 18 RF: 0 amoxicillin-pot clavulanate [Augmentin] 875-125 mg tablet 1 tab PO BID Qty: 10 RF: 0 celecoxib [Celebrex] 100 mg capsule 100 mg PO BID Qty: 14 RF: 0 nystatin 100,000 unit/mL Suspension 5 ml PO QID 14 Days Qty: 280 RF: 0 Continue multivitamin Tablet 1 tab PO DAILY RF: 0 cholecalciferol (vitamin D3) [Vitamin D3] 2,000 unit Tablet 6,000 unit PO DAILY RF: 0 levothyroxine [Synthroid] 88 mcg Tablet 88 mcg PO DAILY RF: 0 drospirenone-ethinyl estradiol 3-0.02 mg Tablet 1 tab PO DAILY RF: 0 Visit Report Forms: [facility] Stand-Alone Forms: [facility] Discharge Orders: Discharge Order (Routine); Ordered 06/27/18 Ordered By: Radha Mo Admission Data Admit Date/Time: 06/20/18 02:21 Attending Provider: Fermín Bonds Admit Provider: Fermín Bonds Primary Care Provider: Ozzy Segal Other Providers: Fermín Bonds Service: Telemetry Other Interventions: Discharge Summary Assessment (RN) Last Done: 06/27/18 11:16 Pending Studies at Discharge: Yes Studies:: Pathology report. DC Date/Time DO NOT enter until pt leaves facility: 06/27/18 13:20
--- NOTE | 2018-07-23 12:13 | Coding Query ---
CODING QUERY To promote full compliance with coding requirements relating to patient care, provider participation is requested in all cases of military technology manager uncertainty. Please assist us with the question(s) below: Coding Question(s): Patient admitted with acute appendicitis; appendectomy performed. While patient in Recovery, bleeding occurred at a port site. Patient returned to the Operating Room for an oversew of the port site. Muscle bleeders were noted upon return to the Operating Room. Please check below the phrase that best describes the postoperative port site bleeding. Thank you ! Elias Pop Physician's Response(s): The postoperative bleeding status post lap/appendectomy surgery is expected ____x____ The postopertive bleeding status post lap/appendectomy surgery is a complication Cannot clinically correlate if the postoperative bleeding is expected or a complication Other: please document: Principal Diagnosis: "that condition established after study, to be chiefly responsible for occasioning the admission of the patient to the hospital for care." Co-Existing Principal Diagnosis: "when two or more diagnoses equally meet the criteria for principal diagnosis as determined by the circumstances of admission , diagnostic work up, and/or therapy provided, and the Alphabetic Index, Tabular List, or another coding guideline does not provide sequencing direction , any one of the diagnoses may be sequenced first." "When the physician has documented what appears to be a current diagnosis in the body of the record, but has not included the diagnosis in the final diagnostic statement, the physician should be asked whether the diagnosis should be added." (Source Coding Clinic 2 QTR90. p3-4) SHARRI
== END 2018-06-27 13:20 | disposition home or self-care (01) | DRG 342 ==
LOC: ED 23:13 → 3N 06-20 02:21 → 2N 06-20 12:33 → 2W 06-20 14:32

== ENCOUNTER 2018-11-15 23:31 | Inpatient (IN) ==
[2018-11-15] MEDS ORDERED: SODIUM CHLORIDE 0.9% 1000ML 1,000 ML IV SCH (23:45)
[2018-11-15] MEDS ORDERED: ONDANSETRON INJ 2 MG/ML 2 ML VIAL IV STA (23:45)
[2018-11-16] MEDS: NITROGLYCERIN SL 0.4 MG/TAB TAB SL PRN ×2 (00:05→00:12)
[2018-11-16 00:11] LABS: Basophils # (auto) 0.02 K/uL (0-0.2); Basophils % (auto) 0.2 %; Eosinophils # (auto) 0.17 K/uL (0-0.5); Eosinophils % (auto) 1.7 %; Hematocrit (blood only) 38.9 % (37-47); Hemoglobin 13.6 g/dL (12.0-16.0); Immature Granulocytes # (auto) 0.02 K/uL (0.00-0.02); Immature Granulocytes % (auto) 0.2 %; Lymphocytes # (auto) 2.67 K/uL (1.2-3.4); Mean Corpuscular Volume 87.8 fL (80-100); Monocytes # (auto) 0.74 K/uL (0.11-0.59); Monocytes % (auto) 7.5 %; Neutrophils # (auto) 6.28 K/uL (1.4-6.5); Neutrophils % (auto) 63.4 %; Platelet Count 224 K/uL (130-400); RDW Coefficient of Variation 12.8 % (11.5-14.5); RDW Standard Deviation 41.5 fL (36.4-46.3); Red Blood Count 4.43 M/uL (4.2-5.4)
[2018-11-16] MEDS ORDERED: fentaNYL citrate 100 MCG/2 ML VIAL IV STA (00:11)
[2018-11-16] MEDS ORDERED: ONDANSETRON INJ 2 MG/ML 2 ML VIAL IV STA (00:18)
[2018-11-16 00:25] LABS: D Dimer 390 ug/L FEU (0-500)
[2018-11-16 00:33] LABS: Alanine Aminotransferase 26 U/L (12-78); Albumin Level 3.3 gm/dl (3.4-5.0); Aspartate Aminotransferase 22 U/L (15-37); BUN Creatinine Ratio 17.3 (10-20); Bilirubin Direct 0.2 mg/dl (0-0.2); Blood Urea Nitrogen 14 mg/dl (7-18); Calcium 8.8 mg/dl (8.5-10.1); Carbon Dioxide 24 mmol/L (21-32); Chloride 107 mmol/L (98-107); Creatinine Clr Calc Pharmacy 95.7 ml/min; Est GFR (African American) 98.1; Est GFR (Non-African American) 84.6; Glucose 116 mg/dl (70-99); Potassium 3.5 mmol/L (3.5-5.1); Sodium 139 mmol/L (136-145)
[2018-11-16 00:38] LABS: Alkaline Phosphatase 73 U/L (45-117); Bilirubin,Total 0.6 mg/dl (0.2-1); Total Protein 7.1 gm/dl (6.4-8.2); Troponin I < 0.015 ng/ml (0-0.045)
[2018-11-16] MEDS ORDERED: HYDROmorphone INJ 1 MG/ML SYRINGE IV STA ×2 (01:26→01:50)
[2018-11-16] MEDS ORDERED: IOVERSOL 100ml IV PRN (01:27)
[2018-11-16] MEDS ORDERED: PROMETHAZINE 25 MG/51 ML BAG IV STA (01:35)
[2018-11-16] MEDS ORDERED: SODIUM CHLORIDE 0.9% 1000ML 1,000 ML IV ONE (01:35)
[2018-11-16] MEDS ORDERED: HYDROmorphone INJ 1 MG/ML SYRINGE IV PRN (01:55)
[2018-11-16] MEDS ORDERED: OXYCODONE HCL IR 5 MG TAB (IMMEDIATE RELEASE) PO PRN ×3 (02:56→04:42)
[2018-11-16] MEDS ORDERED: ONDANSETRON INJ 2 MG/ML 2 ML VIAL IV PRN (02:56)
[2018-11-16] MEDS ORDERED: ACETAMINOPHEN 325 MG TAB PO PRN (02:56)
[2018-11-16] MEDS ORDERED: HYDROmorphone INJ 0.5 MG/0.5 ML SYR IV PRN ×2 (02:56→02:57)
--- NOTE | 2018-11-16 03:31 | Emergency Department Note ---
Entered by Justus Kelly acting as a scribe for ED Provider Note Name: Mona Casillas Age: 48, female Arrives Via: Walk in Informant: Chest pain CC: Chest pain HPI: The patient is a 48 year old female who presents to the emergency department with complaints of constant chest pain beginning at 2200 today. The patient states that her chest pain is mainly located in the center and right side of her chest. She notes that she also occasionally has some pain under her ribs. She also complains of nausea, leg swelling, lightheadedness, and occasio nal heart palpitations. She denies any vomiting, abdominal pain, SOB/CP with exertion, and trauma. She reports that she did not take anything for her pain. The patient states that she does not have a history of heart problems. She notes that she has a family history of kidney stones but she reports that she does not have a family history of heart problems. She denies any known tick bites. She reports that she is a former smoker, and she states that she does not use alcohol and drugs. ROS: See above HPI for pertinent positives & negatives. A total of 10 systems reviewed and were otherwise negative. Past Medical History: Appendicitis, hypothyroidism, kidney stones Past Surgical History: Appendectomy Family History: Family history of kidney stones Social History: Former smoker, does not drink alcohol, does not use drugs, lives with family. Home Medications: Synthroid, drospirenone-ethinyl estradiol Allergies: Meclizine Physical: Vitals: BP 158/92 H, Pulse 84, Resp 16, Temp 97.9 F, O2 97 Exam: GENERAL: Patient is anxious and moderately uncomfortable appearing, in moderate distress distress. EYES: No scleral icterus, unremarkable pupils. ENT: Mucous membranes moist, no nasal congestion. NECK: No masses appreciated, no meningismus, trachea is midline. RESPIRATORY: Clear to auscultation and equal bilaterally. No wheeze, no rhonchi. Mildly dyspneic/tachypneic. CARDIOVASCULAR: Regular rate and rhythm. No murmurs, rubs, gallops appreciated. GASTROINTESTINAL: Abdomen soft, non-tender, no peritonitis. Bowel sounds positive. No masses appreciated. BACK: No midline tenderness, no CVA tenderness EXTREMITIES: Normal motion all extremities, no cyanosis, no edema. NEUROLOGIC: Alert and oriented, no acute motor or sensory deficits, no focal weakness, cranial nerves grossly intact. SKIN: No rash, no jaundice, no diaphoresis. ED Course: Prior Medical Record, Triage/Nursing Notes, Medications, Allergies reviewed by Me 2355: The patient was evaluated in room C10. A complete history and physical exam was performed. 0013: I reevaluated and updated the patient. She has had mild improvement with the initial nitro. She is still uncomfortable. Fentanyl was ordered in addition to another sublingual nitro. 0018: I rechecked the patient. She is now vomiting. 0041: I reevaluated and updated the patient. She is still uncomfortable. She notes that her symptoms are more epigastric now. She is agreeable to CT abdomen and pelvis. 0141: I rechecked the patient. She is actively vomiting. 0146: I [facility] the [facility] She reviewed the patient's imaging and requests a US of the gallbladder. 0155: I reevaluated and updated the patient. She feels much better and is agreeable to US. 0255: I rediscussed the patient's case with Dr. Zaidi. She will admit the patient. 0301: I rechecked the patient. She states that her pain has returned. She is agreeable to coming into the hospital. Vital Signs: reviewed and remarkable for HTN Labs: Reviewed and remarkable for wnl Interventions: Saline Lock, SLNTG x 2, Fentanyl 50mcg IV, Zofran 4mg IV x 2, Phenergan 25mg IV, Dilaudid 1mg IV, Dilaudid 0.5mg IV, NSS infusion/bolus Imaging: Radiology results as stated below per my review and the radiologist's interpretation: CT ABDOMEN & PELVIS With Contrast: Cholelithiasis and suspicious for acute cholecystitis. Correlate with ultr asound. Nondilated CBD. Absent appendix. Radiologist: Robert Oshea MD US GALLBLADDER: Borderline dilated CBD at 6mm. 6mm gallbladder polyp. Cholelithiasis. Possible gallbladder wall thickening. No pericholecystic fluid. Cannot exclude cholecystitis. Correlate with nuclear hepatobiliary imaging. Radiologist: Robert Oshea MD. EKG: EKG results per my interpretation. Indication - chest pain. Normal sinus, 98, no ectopy, no ischemia, QTC 457, when compared to EKG from June 2018, rate has slowed and QTC has improved. Consults: 0146: I discussed the patient's case with Dr. Zaidi - General Surgery, [facility]. She reviewed the patient's imaging and requests a US of the gallbladder. 0255: I rediscussed the patient's case with Dr. Zaidi. She will admit the patient. Blood pressure: Elevated blood pressure will be monitored by surgeon. Disposition: Hospitalization Differentials: Differential diagnosis includes: ACS, PE, Dissection, Pancreatitis, Cholecystitis/GB Dysfunction, GERD/PUD, Esophageal spasm, Aortic Issue amongst others Medical Decision Making: Pleasant very uncomfortable 48 yr old female with initially low substernal pain that radiates RUQ and by end of stay clearly epigastric/RUQ pain as location. Initial EKG OK with normal Trop. Was initially given SLNTG x 2 without significant change in pain though did much better with IV fent/dilaudid. Multiple rounds antiemetics required. Dimer negative thus unlikely PE without other risks. Trop negative after several hours with normal EKG thus unlikely ACS given other more likely cause. CT with concerns cholecystitis and US also with concerns though not definitive. At this time WBC and LFTs OK. She is requiring several rounds anti-emetics and pain meds. Very much suspect this is early cholecysitis and reviewed with gen surg who will bring in for further evaluation and management. Stable with improvement in BP with pain control. Symptoms do not seem consistent with dissection and no report of this on initial abd/pelv ct. I will note patient quite anxious given that post Appendectomy 6 m onths ago she had significant intraabdominal bleed requiring return to OR and blood transfusion. Impression: Acute cholecystitis Shashank Yarbrough MD The scribe's documentation has been prepared under my direction and personally reviewed by me in its entirety. I confirm that the note above accurately reflects all work, treatment, procedures, and medical decision making performed by me. Impression & Plan Acute cholecystitis Past Med/Surg History Medical History Encounter for pre-operative examination Ureteral stone (Acute) Appendicitis (Acute) Hypothyroidism Kidney stones Surgical History History of appendectomy History of section History of lithotripsy History of repair of rotator cuff Family History Other Family history of kidney stones Social History Preferred Language: Lao Communication Ability: Effective Visual Impairment: No Limitations Beliefs That Will Affect Care: None Current Living Situation: Family Current Living Situation Comment: with Fiance and 2 sons ages 19 and 15 Feels Safe at Home: Yes Smoking Status: Former smoker Hx Alcohol Use: Yes Alcohol type: wine Hx Substance Use: No Results & Data Vital Signs Vital Signs - 24 hr 11/15/18 23:32 11/16/18 00:12 11/16/18 01:43 Temperature 36.6 C Temperature Source Oral Sepsis Recent Fever Within 48 Hours No Sepsis Action Taken by Nursing No Action Required Pulse Rate 89 Pulse Rate [Right Finger] 84 99 H Pulse Rhythm [Right Finger] Regular Pulse Strength [Right Finger] Normal Normal Respiratory Rate 20 16 16 Respiratory Effort / Characteristics Non-Labored Non-Labored Non-Labored Respiratory Depth Normal Normal Normal Respiratory Pattern Regular Regular Blood Pressure 184/89 H Blood Pressure [Right Arm] 158/92 H 185/139 H Blood Pressure Mean 120 Blood Pressure Mean [Right Arm] 114 154 Blood Pressure Position [Right Arm] Lying Lying Pulse Oximetry 93 97 98 Oxygen Delivery Method Room Air Room Air Room Air 11/16/18 02:55 Temperature Temperature Source Sepsis Recent Fever Within 48 Hours Sepsis Action Taken by Nursing Pulse Rate Pulse Rate [Right Finger] 74 Pulse Rhythm [Right Finger] Regular Pulse Strength [Right Finger] Normal Respiratory Rate 16 Respiratory Effort / Characteristics Non-Labored Respiratory Depth Normal Respiratory Pattern Regular Blood Pressure Blood Pressure [Right Arm] 175/95 H Blood Pressure Mean Blood Pressure Mean [Right Arm] 121 Blood Pressure Position [Right Arm] Lying Pulse Oximetry 98 Oxygen Delivery Method Room Air Home Medications Current Medication List: was personally reviewed by me Laboratory Data Attestation: I reviewed the patient's lab results. Result diagrams: 11/15/18 23:59 11/15/18 23:59 Lab Results 11/15/18 11/15/18 11/15/18 Range/Units 23:59 23:59 23:59 WBC 9.90 (4.8-10.8) K/uL RBC 4.43 (4.2-5.4) M/uL Hgb 13.6 (12.0-16.0) g/dL Hct 38.9 (37-47) % MCV 87.8 (80-100) fL MCH 30.7 (25-34) pg MCHC 35.0 (32-36) g/dL RDW Std Deviation 41.5 (36.4-46.3) fL RDW Coeff of Jose Rafael 12.8 (11.5-14.5) % Plt Count 224 (130-400) K/uL MPV 9.0 (7.4-10.4) fL Immature Gran % (Auto) 0.2 % Neut % (Auto) 63.4 % Lymph % (Auto) 27.0 % [place] % (Auto) 7.5 % Eos % (Auto) 1.7 % Baso % (Auto) 0.2 % Immature Gran # (Auto) 0.02 (0.00-0.02) K/uL Neut # (Auto) 6.28 (1.4-6.5) K/uL Lymph # (Auto) 2.67 (1.2-3.4) K/uL [place] # (Auto) 0.74 H (0.11-0.59) K/uL Eos # (Auto) 0.17 (0-0.5) K/uL Baso # (Auto) 0.02 (0-0.2) K/uL D-Dimer 390 (0-500) ug/L FEU Sodium 139 (136-145) mmol/L Potassium 3.5 (3.5-5.1) mmol/L Chloride 107 (98-107) mmol/L Carbon Dioxide 24 (21-32) mmol/L Anion Gap 9.0 (3-11) BUN 14 (7-18) mg/dl Creatinine 0.82 (0.6-1.2) mg/dl Est Cr Clr Drug Dosing 95.7 ml/min Est GFR ( Amer) 98.1 Est GFR (Non-Af Amer) 84.6 BUN/Creatinine Ratio 17.3 (10-20) Glucose 116 H (70-99) mg/dl Calcium 8.8 (8.5-10.1) mg/dl Total Bilirubin 0.6 (0.2-1) mg/dl Direct Bilirubin 0.2 (0-0.2) mg/dl AST 22 (15-37) U/L ALT 26 (12-78) U/L Alkaline Phosphatase 73 (45-117) U/L Troponin I < 0.015 (0-0.045) ng/ml Total Protein 7.1 (6.4-8.2) gm/dl Albumin 3.3 L (3.4-5.0) gm/dl Lipase 124 (73-393) U/L Administered Medications Sodium Chloride (Nss 1000ml) 1,000 mls @ 100 mls/hr IV .Q10H ELEUTERIO Stop: 12/15/18 23:44 Last Admin: 11/16/18 00:05 Dose: 125 mls/hr Documented by: [id number] Ioversol (Optiray 320 100ml) 100 ml IV ONCE PRN PRN Reason: Interaction Checking Stop: 11/20/18 01:26 Last Admin: 11/16/18 01:28 Dose: 93 ml Documented by: [id number] Nitroglycerin (Nitrostat) 0.4 mg SL PRN PRN PRN Reason: Chest Pain Stop: 12/15/18 23:43 Last Admin: 11/16/18 00:12 Dose: 0.4 mg Documented by: [id number] Admin: 11/16/18 00:05 Dose: 0.4 mg Documented by: [id number] Discontinued Medications Fentanyl Citrate (Fentanyl Citrate) 50 mcg IV NOW STA Stop: 11/16/18 00:12 Last Admin: 11/16/18 00:24 Dose: 50 mcg Documented by: [id number] Hydromorphone HCl (Dilaudid) 1 mg IV NOW STA Stop: 11/16/18 01:27 Last Admin: 11/16/18 01:29 Dose: 1 mg Documented by: [id number] Hydromorphone HCl (Dilaudid) 1 mg IV Q15M PRN PRN Reason: Pain Stop: 11/30/18 01:54 Last Admin: 11/16/18 03:05 Dose: 1 mg Documented by: [id number] Promethazine HCl (Phenergan) 25 mg in 51 mls @ 204 mls/hr IV NOW STA Stop: 11/16/18 01:49 Last Admin: 11/16/18 01:42 Dose: 204 mls/hr Documented by: [id number] Sodium Chloride (Nss 1000ml) 1,000 mls @ 999 mls/hr IV .Q1H1M ONE Stop: 11/16/18 02:35 Last Admin: 11/16/18 03:04 Dose: 999 mls/hr Documented by: [id number] Ondansetron HCl (Zofran) 4 mg IV NOW STA Stop: 11/15/18 23:46 Last Admin: 11/16/18 00:05 Dose: 4 mg Documented by: [id number] Ondansetron HCl (Zofran) 4 mg IV NOW STA Stop: 11/16/18 00:19 Last Admin: 11/16/18 00:23 Dose: 4 mg Documented by: [id number] Discharge Plan Visit Data Chief Complaint: Chest Pain Stated Complaint: CHEST PAIN,NAUSEA ED Provider: Shashank Yarbrough Discharge Problem: Acute cholecystitis Patient Disposition: Being Evaluated by Surgeon Forms Stand Alone Forms: Call Back Authorization, [facility] Prescriptions Prescriptions: No Action multivitamin Tablet 1 tab PO DAILY RF: 0 cholecalciferol (vitamin D3) [Vitamin D3] 2,000 unit Tablet 6,000 unit PO DAILY RF: 0 levothyroxine [Synthroid] 88 mcg Tablet 88 mcg PO DAILY RF: 0 drospirenone-ethinyl estradiol [[place] (28)] 3-0.02 mg tablet 1 tab PO DAILY RF: 0 Referrals Referrals: Ozzy Segal MD [Primary Care Provider] - The scribe's documentation has been prepared under my direction and personally reviewed by me in its entirety. I confirm that the note above accurately reflects all work, treatment, procedures, and medical decision making performed by me.
[2018-11-16] MEDS: cefOXitin 2,000 MG in DEXTROSE 5% 50 ML IV SCH ×2 (05:29→14:14)
--- NOTE | 2018-11-16 06:26 | XRay Report ---
XR chest 1V portable HISTORY: 48 years-old Female substernal/right chest pain acute right-sided atypical chest pain COMPARISON: CT abdomen and pelvis of same day, chest radiograph 12/18/2016 TECHNIQUE: Portable AP view of the chest FINDINGS: Cardiomediastinal and hilar silhouettes are within normal limits. There is no pneumothorax, pleural e ffusion, focal airspace consolidation or overt pulmonary edema. Surgical clips project over the lower neck. Bones appear grossly intact. IMPRESSION: No acute process. The above report was generated using voice recognition software. It may contain grammatical, syntax o r spelling errors. Electronically signed by: Christiano Adams M.D. 11/16/2018 6:25 AM
[2018-11-16] MEDS ORDERED: LEVOTHYROXINE SODIUM 88 MCG TABLET PO SCH (06:30)
--- NOTE | 2018-11-16 07:05 | Ultrasound Report ---
ULTRASOUND RIGHT UPPER QUADRANT ABDOMEN CLINICAL HISTORY: Right upper quadrant abdominal pain. COMPARISON STUDY: Abdominal CT dated 11/16/2018. TECHNIQUE: Real-time, grayscale, and color flow sonography of the right upper quadrant of the abdomen was performed. Images are reviewed in the transverse and longitudinal planes. FINDINGS: Liver: The liver is top normal in size and demonstrates heterogeneously increased echotexture consist ent with hepatic steatosis. There is no intrahepatic biliary ductal dilatation. The main portal vein is patent. Gallbladder: A 6 cm gallbladder polyp is incidentally noted. Small shadowing gallstones are identifie d in the fundal region. The gallbladder is distended. The gallbladder wall appears mildly thickened. No pericholecystic fluid as seen. A sonographic Augustin's sign is reportedly absent. The common bile d uct measures up to 0.6 cm in diameter. Pancreas: Visualized portions of the pancreatic head and body are normal in appearance. The splenic v ein is patent. Right kidney: Survey images of the right kidney demonstrate normal size and echotexture. There is no hydronephrosis. Ascites: None. IMPRESSION: 1. Cholelithiasis. The gallbladder is distended and appears mildly thick-walled. Although a sonograph ic Augustin's sign is reportedly absent, findings are highly concerning for acute cholecystitis in [facility] t of today's CT findings. 2. There is no intra or extrahepatic biliary ductal dilatation. 3. Hepatic steatosis. Electronically signed by: Kris Sanabria M.D. 11/16/2018 7:03 AM
--- NOTE | 2018-11-16 07:36 | History & Physical Report ---
Date of Service November 16, 2018 Assessment & Plan (1) Symptomatic cholelithiasis: 48 year-old female who presented to emergency department late last evening with complaint of substernal chest pain with RUQ abdominal pain, nausea, and vomiting. CT scan of abdomen and pelvis along with gallbladder ultrasound showing cholelithiasis with mild gallbladder wall thickening and distention concerning for acute cholecystitis. Labs show no leukocytosis, t. bili and lfts, lipase wnl. Her abdomen is completely benign this morning and her pain has resolved. She is afebrile. Plan: Discussed options of cholecystectomy while inpatient vs outpatient cholecystectomy given her pain has resolved and she is feeling better. Discussed surgical approach laparoscopically as well as risks and recovery period of no heavy lifting over 10-15 pounds for 4 weeks. Patient would prefer outpatient cholecystectomy at this time given limited time off of work availability given her recent surgery in June. Will plan to advance her diet today to see how she tolerates and if does okay will discharge home today with oral antibiotics for 1 week course. She should follow-up in office in [address] Zaidi to discuss elective surgery and timing. She should avoid fatty/greasy foods to prevent further attacks. (2) Acute cholecystitis: concern for acute cholecystitis on CT scan and gallbladder US however abdominal pain has resolved this morning. She is afebrile and no leukocytosis. She will be placed on oral abx on discharge and allow gallbladder to cool down to schedule elective cholecystectomy. refer to complete plan above Dr. Zaidi has seen and examined patient, please see addendum for further recommendations/plan. History of Present Illness Chief Complaint: Chest pain/RUQ abdominal pain Primary Care Provider: Ozzy Segal MD Mona is a 48 year-old female who presented to emergency department late last night with complaint of sudden substernal chest pain that began last evening. States the pain was sudden and was concerned that is was her heart given the location. States the pain then started to radiate to the right chest, under her breast and rib cage to the right upper abdomen. States she had associated nausea and vomiting and had two episodes of vomiting around 5 am. States she immediately felt better after vomiting and her pain has resolved. States she had pasta and hamburg for dinner last night and ice cream around 9 pm. Was feeling fine yesterday morning. Denies of similar episodes of pain in the past. States she had work-up for chest pain in the past with EKG which was normal and then had an ultrasound which showed stones. She recently had laparoscopic appendectomy in June which was complicated by bleeding at trocar site which required her to go back to operating room and a blood transfusion. She states she also had 2 sections. No other abdominal surgeries. Denies of any fever, chills, sweats, shortness of breath, difficulty breathing, diarrhea, constipation, blood in stools, difficulty urinating. ER work-up included labs which showed no leukocytosis. T. bili, lFTS, and lipase wnl. She had a CT scan of abdomen and pelvis with IV contrast only which showed gallstones and gallbladder distention and wall thickening concerning for acute cholecystitis. She then had a gallbladder ultrasound which showed gallstones, gallbladder distention and gallbladder wall thickening. Negative Augustin's sign on ultrasound. Again since admission , Mona states she is feeling better and her pain has resolved after episode of vomiting. She would prefer to schedule cholecystectomy electively at this time as she is feeling better and pain resolved. Allergies Allergy/AdvReac Type Severity Reaction Status Date / Time meclizine AdvReac Unknown migraine Verified 11/15/18 23:47 Home Medications Home Medications Medication Instructions Recorded Confirmed Type cholecalciferol (vitamin D3) 6,000 unit PO DAILY 06/19/18 11/15/18 History [Vitamin D3] levothyroxine [Synthroid] 88 mcg PO DAILY 06/19/18 11/15/18 History multivitamin 1 tab PO DAILY 06/19/18 11/15/18 History drospirenone-ethinyl estradiol 1 tab PO DAILY 11/15/18 11/15/18 History [[place] (28)] Past Med/Surg History Medical History Encounter for pre-operative examination Ureteral stone (Acute) Appendicitis (Acute) Hypothyroidism Kidney stones Surgical History History of appendectomy History of section History of lithotripsy History of repair of rotator cuff Family History Other Family history of kidney stones Social History Preferred Language: Libyan Communication Ability: Effective Visual Impairment: No Limitations Manager Data Center Required: No Beliefs That Will Affect Care: None Current Living Situation: Spouse Current Living Situation Comment: with Fiance and 2 sons ages 19 and 15 Other Information That Helps Us Care for You: No Feels Safe at Home: Yes Safety Concerns: Feels Safe At This Time Smoking Status: Never smoker Hx Alcohol Use: Yes Alcohol type: wine Hx Substance Use: No Review of Systems Review of Systems: All systems reviewed & are unremarkable except as noted in HPI & below Physical Exam Constitutional: WD/WN, vitals as above no acute distress and not ill appearing Respiratory: normal respiratory effort; no respiratory distress Gastrointestinal (Abdomen): Inspection/Auscultation: abdomen normal to inspection; abdomen not distended Percussion/Palpation: abdomen soft; abdomen nontender, no guarding and abdomen not rigid Skin: no rashes, warm and dry Psychiatric: A+Ox3, euthymic affect Results & Data Vital Signs (Past 12 Hours) Vital Signs Temp Pulse Pulse Resp BP BP Pulse Ox 11/16/18 06:30 75 114/77 11/16/18 04:54 36.6 C 80 20 177/104 H 100 11/16/18 03:39 87 14 178/98 H 94 11/16/18 02:55 74 16 175/95 H 98 11/16/18 01:43 99 H 16 185/139 H 98 11/16/18 00:12 84 16 158/92 H 97 11/15/18 23:32 36.6 C 89 20 184/89 H 93 Laboratory Results 11/15/18 11/15/18 11/15/18 Range/Units 23:59 23:59 23:59 WBC 9.90 (4.8-10.8) K/uL RBC 4.43 (4.2-5.4) M/uL Hgb 13.6 (12.0-16.0) g/dL Hct 38.9 (37-47) % MCV 87.8 (80-100) fL MCH 30.7 (25-34) pg MCHC 35.0 (32-36) g/dL RDW Std Deviation 41.5 (36.4-46.3) fL RDW Coeff of Jose Rafael 12.8 (11.5-14.5) % Plt Count 224 (130-400) K/uL MPV 9.0 (7.4-10.4) fL Immature Gran % (Auto) 0.2 % Neut % (Auto) 63.4 % Lymph % (Auto) 27.0 % Stewart % (Auto) 7.5 % Eos % (Auto) 1.7 % Baso % (Auto) 0.2 % Immature Gran # (Auto) 0.02 (0.00-0.02) K/uL Neut # (Auto) 6.28 (1.4-6.5) K/uL Lymph # (Auto) 2.67 (1.2-3.4) K/uL Stewart # (Auto) 0.74 H (0.11-0.59) K/uL Eos # (Auto) 0.17 (0-0.5) K/uL Baso # (Auto) 0.02 (0-0.2) K/uL D-Dimer 390 (0-500) ug/L FEU Sodium 139 (136-145) mmol/L Potassium 3.5 (3.5-5.1) mmol/L Chloride 107 (98-107) mmol/L Carbon Dioxide 24 (21-32) mmol/L Anion Gap 9.0 (3-11) BUN 14 (7-18) mg/dl Creatinine 0.82 (0.6-1.2) mg/dl Est Cr Clr Drug Dosing 95.7 ml/min Est GFR ( Amer) 98.1 Est GFR (Non-Af Amer) 84.6 BUN/Creatinine Ratio 17.3 (10-20) Glucose 116 H (70-99) mg/dl Calcium 8.8 (8.5-10.1) mg/dl Total Bilirubin 0.6 (0.2-1) mg/dl Direct Bilirubin 0.2 (0-0.2) mg/dl AST 22 (15-37) U/L ALT 26 (12-78) U/L Alkaline Phosphatase 73 (45-117) U/L Troponin I < 0.015 (0-0.045) ng/ml Total Protein 7.1 (6.4-8.2) gm/dl Albumin 3.3 L (3.4-5.0) gm/dl Lipase 124 (73-393) U/L Diagnostic Findings CT abd pelvis IV con only CLINICAL HISTORY: 48 years-old Female presenting with epigastric pain, nausea, vomiting. TECHNIQUE: Multidetector CT of the abdomen and pelvis was performed after the administration of intravenous contrast. IV contrast: 93 mL of Optiray 320. One o r more dose lowering techniques were used consistent with the principles of ALARA (as low as reasonably achievable), including automatic exposure control, mA or kV adjustment to individual patient size, and/or use of iterative reconstruction. COMPARISON: None. CT DOSE (mGy.cm): The estimated cumulative dose is 599.03 mGy.cm. FINDINGS: Internal Salesperson topogram: Unremarkable. Lung bases: Normal heart size. No pericardial or pleural effusion. No focal infiltrate or nodule at the lung bases. Liver: Normal morphology. No liver lesion. Patent hepatic vasculature. Biliary: No intrahepatic or extrahepatic biliary ductal dilatation. Gallbladder contains gallstones. Mild gallbladder wall thickening. The gallbladder is mildly distended. Pancreas: Normal. Spleen: Normal. Adrenal glands: Normal. Kidneys and ureters: Normal. No hydronephrosis. Bladder: Incompletely evaluated secondary to underdistention. Pelvic organs: Uterus and ovaries normal. Bowel: Postsurgical changes of appendectomy. No bowel obstruction. Peritoneal cavity: No free fluid or intraperitoneal gas. Lymph nodes: No enlarged lymph nodes in the abdomen or pelvis. Vasculature: Aorta and IVC patent and normal in caliber. Abdominal wall: Few superficial varices evident in the left anterior thigh. Musculoskeletal: Normal. IMPRESSION: 1. Cholelithiasis with findings suggestive of acute calculus cholecystitis. Further confirmation with HIDA scan could be considered as well as surgical consultation. ULTRASOUND RIGHT UPPER QUADRANT ABDOMEN CLINICAL HISTORY: Right upper quadrant abdominal pain. COMPARISON STUDY: Abdominal CT dated 11/16/2018. TECHNIQUE: Real-time, grayscale, and color flow sonography of the right upper quadrant of the abdomen was performed. Images are reviewed in the transverse and longitudinal planes. FINDINGS: Liver: The liver is top normal in size and demonstrates heterogeneously increased echotexture consistent with hepatic steatosis. There is no intrahepatic biliary ductal dilatation. The main portal vein is patent. Gallbladder: A 6 cm gallbladder polyp is incidentally noted. Small shadowing gallstones are identified in the fundal region. The gallbladder is distended. The gallbladder wall appears mildly thickened. No pericholecystic fluid as seen. A sonographic Augustin's sign is reportedly absent. The common bile duct measures up to 0.6 cm in diameter. Pancreas: Visualized portions of the pancreatic head and body are normal in appearance. The splenic vein is patent. Right kidney: Survey images of the right kidney demonstrate normal size and echotexture. There is no hydronephrosis. Ascites: None. IMPRESSION: 1. Cholelithiasis. The gallbladder is distended and appears mildly thick-walled. Although a sonographic Augustin's sign is reportedly absent, findings are highly concerning for acute cholecystitis in light of today's CT findings. 2. There is no intra or extrahepatic biliary ductal dilatation. 3. Hepatic steatosis. Code Status & VTE Plan VTE Prophylaxis Plan VTE Prophylaxis will be ordered: Yes Supervising Physician Co-Signing Physician Notes I have seen and evaluated the patient and reviewed the medical record. I agree with the documentation as provided in this note by Lauren Traore PA-C. 48 yo female with laparoscopic appendectomy complicated by bleeding at a port site who presented with chest/epigastric pain and nausea. Prior U/S showed no gallstones, CT and U/S today show small stones, a 0.6 cm gallbladder polyp, and possible acute cholecystitis with possible gallbladder wall thickening. Had severe pain, unrelated to food, and no prior similar episodes. All symptoms promptly resolved after an episode of emesis and have not returned. Discussed findings with the patient possibility of symptomatic cholelithiasis and possible cholecystitis. Offered surgical intervention but given very mild finds and pt hesitance to undergo another surgery at this time it is reasonable to trial a diet and treat with a course of antibiotics. She was educated on potential for developing recurrent symptoms, cholecystitis, choledocholithiasis and pancreatitis. If tolerates a diet and no recurrent pain will discharge with plans for f/u in 1 week. If unable to tolerate diet then will re-discuss surgical intervention during this admission vs continued observation.
--- NOTE | 2018-11-16 07:54 | CT Scan Report ---
CT abd pelvis IV con only CLINICAL HISTORY: 48 years-old Female presenting with epigastric pain, nausea, vomiting. TECHNIQUE: Multidetector CT of the abdomen and pelvis was performed after the administration of intra venous contrast. IV contrast: 93 mL of Optiray 320. One or more dose lowering techniques were used co nsistent with the principles of ALARA (as low as reasonably achievable), including automatic exposure control, mA or kV adjustment to individual patient size, and/or use of iterative reconstruction. COMPARISON: None. CT DOSE (mGy.cm): The estimated cumulative dose is 599.03 mGy.cm. FINDINGS: Mill Tender Warm Up topogram: Unremarkable. Lung bases: Normal heart size. No pericardial or pleural effusion. No focal infiltrate or nodule at t he lung bases. Liver: Normal morphology. No liver lesion. Patent hepatic vasculature. Biliary: No intrahepatic or extrahepatic biliary ductal dilatation. Gallbladder contains gallstones. Mild gallbladder wall thickening. The gallbladder is mildly distended. Pancreas: Normal. Spleen: Normal. Adrenal glands: Normal. Kidneys and ureters: Normal. No hydronephrosis. Bladder: Incompletely evaluated secondary to underdistention. Pelvic organs: Uterus and ovaries normal. Bowel: Postsurgical changes of appendectomy. No bowel obstruction. Peritoneal cavity: No free fluid or intraperitoneal gas. Lymph nodes: No enlarged lymph nodes in the abdomen or pelvis. Vasculature: Aorta and IVC patent and normal in caliber. Abdominal wall: Few superficial varices evident in the left anterior thigh. Musculoskeletal: Normal. IMPRESSION: 1. Cholelithiasis with findings suggestive of acute calculus cholecystitis. Further confirmation wit h HIDA scan could be considered as well as surgical consultation. Electronically signed by: Diony Leong M.D. 11/16/2018 7:51 AM
--- NOTE | 2018-11-19 08:06 | Discharge Summary ---
Date of Service November 19, 2018 Admission HPI Per Admitting Provider Mona is a 48 year-old female who presented to emergency department late last night with complaint of sudden substernal chest pain that began last evening. States the pain was sudden and was concerned that is was her heart given the location. States the pain then started to radiate to the right chest, under her breast and rib cage to the right upper abdomen. States she had associated nausea and vomiting and had two episodes of vomiting around 5 am. States she immediately felt better after vomiting and her pain has resolved. States she had pasta and hamburg for dinner last night and ice cream around 9 pm. Was fe eling fine yesterday morning. Denies of similar episodes of pain in the past. States she had work-up for chest pain in the past with EKG which was normal and then had an ultrasound which showed stones. She recently had laparoscopic appendectomy in June which was complicated by bleeding at trocar site which required her to go back to operating room and a blood transfusion. She states she also had 2 sections. No other abdominal surgeries. Denies of any fever, chills, sweats, shortness of breath, difficulty breathing, diarrhea, constipation, blood in stools, difficulty urinating. ER work-up included labs which showed no leukocytosis. T. bili, lFTS, and lipase wnl. She had a CT scan of abdomen and pelvis with IV contrast only which showed gallstones and gallbladder distention and wall thickening concerning for acute cholecystitis. She then had a gallbladder ultrasound which showed gallstones, gallbladder distention and gallbladder wall thickening. Negative Augustin's sign on ultrasound. Again since admission , Mona states she is feeling better and her pain has resolved after episode of vomiting. She would prefer to schedule cholecystectomy electively at this time as she is feeling better and pain resolved. Principal Diagnosis Symptomatic cholelithiasis Early acute cholecystitis Discharge Data Allergies Allergy/AdvReac Type Severity Reaction Status Date / Time meclizine AdvReac Unknown migraine Verified 11/15/18 23:47 Consultations 11/16/18 02:57 ED Decision to Admit Stat Ordered Studies 11/16/18 00:48 CT abd pelvis IV con only Urgent 11/16/18 01:50 US gallbladder Urgent Hospital Course (1) Symptomatic cholelithiasis: Patient was admitted to hospital from emergency department and placed on IV fluids, IV Cefoxitin, IV pain medication as needed, IV Zofran as needed, activity as tolerated, SCDs for DVT prophylaxis and kept NPO. Patient was evaluated in the morning and was feeling much better. Pain and nausea resolved after episode of emesis. Abdomen was soft, nondistended, nontender. Discussion of cholecystectomy while inpatient or outpatient was made with patient along with procedure and risks. Since she was feeling better, pain resolved she wanted to proceed with elective cholecystectomy on outpatient basis. Diet was advanced for breakfast and lunch. She tolerated well without recurrence of pain or nausea and she was discharged home on 7 day course of Cipro/flagyl and recommended close follow-up in office to schedule elective outpatient cholecystectomy. Total Time Total Time Spent Total Time Spent (In Minutes): 30 Total Time Includes: Examination of the Patient, Discharge Planning and Medication Reconciliation Discharge Plan Discharge Items Patient Disposition: Home - Self-Care Reason For Visit: ACUTE CHOLECYSTITIS Discharge Diagnosis: Symptomatic cholelithiasis (Gallstones) Early acute cholecystitis (inflammation of gallbladder) Discharge Goals: Decrease discomfort and Prevent disease Activity: Resume your previous activity Non-emergency contact: Primary Care Provider and Surgeon Call non-emergency contact if: your pain is worsening, your pain is concerning f or you, you have a fever and your temperature is above 101 Follow-up/Referrals: Ozzy Segal MD [Primary Care Provider] - Diet: Low Fat Addtl Provider Instructions: Avoid fatty/greasy/fried foods Next few days to a week advance diet as tolerated with the exception above You will be given prescription for antibiotics to take for 1 week. Take as directed. Please follow-up in surgical office in 1 week, please call office at [phone] to make an appointment. You can also call that number if you have any questions or concerns. Prescriptions: New ciprofloxacin HCl [Cipro] 500 mg tablet 500 mg PO BID Qty: 14 RF: 0 metronidazole [Flagyl] 500 mg tablet 500 mg PO TID Qty: 21 RF: 0 Continued multivitamin Tablet 1 tab PO DAILY RF: 0 cholecalciferol (vitamin D3) [Vitamin D3] 2,000 unit Tablet 6,000 unit PO DAILY RF: 0 levothyroxine [Synthroid] 88 mcg Tablet 88 mcg PO DAILY RF: 0 drospirenone-ethinyl estradiol [[place] (28)] 3-0.02 mg tablet 1 tab PO DAILY RF: 0 Stand-Alone Forms: Call Back Authorization, [facility] Discharge Orders: Discharge Order (Routine); Ordered 11/16/18 Ordered By: Lauren Traore Admission Data Admit Date/Time: 11/16/18 03:13 Attending Provider: Elke Zaidi Admit Provider: Elke Zaidi Primary Care Provider: Ozzy Segal Service: Surgical Services Other Interventions: Discharge Summary Assessment (RN) Last Done: 11/16/18 15:52 Pending Studies at Discharge: No DC Date/Time DO NOT enter until pt leaves facility: 11/16/18 16:30
== END 2018-11-16 16:30 | disposition home or self-care (01) | DRG 446 ==
LOC: ED 23:31 → 3E 11-16 03:13
DX: Z79.899 Other long term (current) drug therapy; K81.0 Acute cholecystitis